=== PATIENT | female | born 1960 | race Caucasian/White ===

== ENCOUNTER → 2020-07-16 09:07 | Outpatient (CLI) | payer OTHER, SELFPAY ==
--- NOTE | 2020-07-16 09:19 | XR_ITS ---
PROCEDURE: XR MULTIPLE SPINE 6+V CLINICAL INDICATION: BACK PAIN COMPARISON: No exams were available for comparison FINDINGS: Thoracic spine: Mild dextroscoliosis. Multilevel degenerative disc disease. No acute fracture or dislocation. Lumbar spine: Normal alignment. No fracture or dislocation. There is 7 mm anterolisthesis of L4 on L5. The disc spaces are fairly well preserved. Mild facet arthritic change L 5 S1 There is mild sclerosis of the SI joints IMPRESSION: 1. No acute fracture. 2. Degenerative changes thoracic spine 3. 7 mm anterolisthesis of L4 on L5 4. Mild sclerosis of the SI joints Dictated by: Esa De La Vega MD 07/16/2020 14:05 Esa De La Vega MD in [place] 07/16/2020 14:05
== END ==
PROVIDERS: PCP Family Medicine; Visit Provider Nurse Practitioner Family
DX: M54.5 Low back pain (principal); M54.6 Pain in thoracic spine
CPT/HCPCS: 72084

== ENCOUNTER → 2021-02-21 07:29 | Outpatient (CLI) | payer BC, SELFPAY ==
[2021-02-21 08:29] LABS: Basophils # 0.1 K/mm3 (0-0.2); Basophils % 0.8 % (0.1-2.0); Eosinophils # 0.2 K/mm3 (0.0-0.4); Eosinophils % 1.6 % (0.1-12.0); Hematocrit 44.7 % (37.0-47.0); Hemoglobin 14.6 g/dL (12.2-16.2); Lymphocytes % 30.6 % (10-50); Mean Corpuscular HGB Conc 32.7 g/dL (31.8-35.4); Mean Corpuscular Volume 91.8 fl (81-99); Mean Platelet Volume 7.5 fl (7.4-10.4); Monocytes # 0.9 K/mm3 (0.1-1.0); Monocytes % 7.2 % (1.7-9.3); Neutrophils # 7.8 K/mm3 (1.8-7.8); Neutrophils % 59.9 % (37.0-80.0); Platelet Count 304 K/mm3 (142-424); Red Blood Count 4.87 M/mm3 (4.20-5.40); Red Cell Distribution Width 13.7 % (11.5-17.5)
[2021-02-21 10:36] LABS: Chloride 102 mmol/L (98-107); Potassium 4.2 mmoL/L (3.5-5.1); Sodium 139 mmol/L (136-145)
[2021-02-21 10:39] LABS: Alanine Aminotransferase 21 U/L (12-78); Albumin Level 4.4 g/dl (3.5-5.0); Albumin/Globulin Ratio 1.7 (1.1-1.8); Alkaline Phosphatase 86 U/L (38-126); Anion Gap 11.2 mEq/L (5-15); Aspartate Amino Transferase 28 U/L (14-36); Blood Urea Nitrogen 13 mg/dl (7-17); Calcium 9.6 mg/dl (8.4-10.2); Carbon Dioxide 30 mmol/L (22.0-30.0); Estimated Glomerular Filt Rate 63 ml/min (>60); GFR (African American) 77 ML/MIN (>60); Globulin 2.6 g/dL (1.3-3.2); Glucose 99 mg/dl (74-100)
== END ==
PROVIDERS: Visit Provider Nurse Practitioner Family
DX: L40.50 Arthropathic psoriasis, unspecified (principal); L40.9 Psoriasis, unspecified; Z79.899 Other long term (current) drug therapy
CPT/HCPCS: 36415; 80053; 85025

== ENCOUNTER → 2021-03-11 16:15 | Outpatient (CLI) | payer BC, SELFPAY ==
[2021-03-11 16:41] LABS: Basophils # 0.1 K/mm3 (0-0.2); Basophils % 1.1 % (0.1-2.0); Eosinophils # 0.3 K/mm3 (0.0-0.4); Hematocrit 42.8 % (37.0-47.0); Hemoglobin 14.1 g/dL (12.2-16.2); Lymphocytes # 3.9 K/mm3 (0.7-4.5); Lymphocytes % 34.5 % (10-50); Mean Corpuscular HGB Conc 33.1 g/dL (31.8-35.4); Mean Corpuscular Hemoglobin 29.9 pg (27.0-31.2); Mean Corpuscular Volume 90.3 fl (81-99); Mean Platelet Volume 7.7 fl (7.4-10.4); Monocytes # 0.6 K/mm3 (0.1-1.0); Monocytes % 5.1 % (1.7-9.3); Neutrophils # 6.3 K/mm3 (1.8-7.8); Neutrophils % 56.3 % (37.0-80.0); Platelet Count 359 K/mm3 (142-424); Red Blood Count 4.74 M/mm3 (4.20-5.40); Red Cell Distribution Width 14.1 % (11.5-17.5); White Blood Count 11.2 K/mm3 (4.8-10.8)
[2021-03-11 18:13] LABS: Chloride 99 mmol/L (98-107); Potassium 3.7 mmoL/L (3.5-5.1); Sodium 137 mmol/L (136-145)
[2021-03-11 18:16] LABS: Alanine Aminotransferase 17 U/L (12-78); Albumin Level 4.1 g/dl (3.5-5.0); Albumin/Globulin Ratio 1.5 (1.1-1.8); Alkaline Phosphatase 78 U/L (38-126); Anion Gap 12.7 mEq/L (5-15); Aspartate Amino Transferase 28 U/L (14-36); Bilirubin,Total 0.5 mg/dl (0.2-1.3); Calcium 9.2 mg/dl (8.4-10.2); Carbon Dioxide 29 mmol/L (22.0-30.0); Globulin 2.7 g/dL (1.3-3.2); Glucose 91 mg/dl (74-100); Total Protein,Serum 6.8 g/dl (6.3-8.2)
[2021-03-11 19:28] LABS: Blood Urea Nitrogen 16 mg/dl (7-17); Estimated Glomerular Filt Rate 63 ml/min (>60); GFR (African American) 77 ML/MIN (>60)
== END ==
PROVIDERS: Visit Provider Nurse Practitioner Family
DX: L40.50 Arthropathic psoriasis, unspecified (principal); L40.9 Psoriasis, unspecified; Z79.899 Other long term (current) drug therapy
CPT/HCPCS: 36415; 80053; 85025

== ENCOUNTER → 2021-04-04 08:43 | Outpatient (CLI) | payer BC, SELFPAY ==
[2021-04-04 09:49] LABS: Basophils # 0.1 K/mm3 (0-0.2); Eosinophils # 0.3 K/mm3 (0.0-0.4); Eosinophils % 3.2 % (0.1-12.0); Hematocrit 42.1 % (37.0-47.0); Hemoglobin 13.3 g/dL (12.2-16.2); Lymphocytes # 3.8 K/mm3 (0.7-4.5); Lymphocytes % 46.6 % (10-50); Mean Corpuscular HGB Conc 31.5 g/dL (31.8-35.4); Mean Corpuscular Hemoglobin 29.8 pg (27.0-31.2); Mean Corpuscular Volume 94.4 fl (81-99); Mean Platelet Volume 7.3 fl (7.4-10.4); Monocytes # 0.5 K/mm3 (0.1-1.0); Monocytes % 6.6 % (1.7-9.3); Neutrophils # 3.5 K/mm3 (1.8-7.8); Neutrophils % 42.6 % (37.0-80.0); Platelet Count 294 K/mm3 (142-424); Red Blood Count 4.46 M/mm3 (4.20-5.40); Red Cell Distribution Width 14.6 % (11.5-17.5); White Blood Count 8.1 K/mm3 (4.8-10.8)
[2021-04-04 13:12] LABS: Alanine Aminotransferase 18 U/L (12-78); Albumin Level 3.9 g/dl (3.5-5.0); Albumin/Globulin Ratio 1.6 (1.1-1.8); Alkaline Phosphatase 64 U/L (38-126); Anion Gap 9.9 mEq/L (5-15); Aspartate Amino Transferase 25 U/L (14-36); Bilirubin,Total 0.8 mg/dl (0.2-1.3); Blood Urea Nitrogen 12 mg/dl (7-17); Calcium 9.1 mg/dl (8.4-10.2); Carbon Dioxide 29 mmol/L (22.0-30.0); Chloride 105 mmol/L (98-107); Estimated Glomerular Filt Rate 73 ml/min (>60); GFR (African American) 88 ML/MIN (>60); Globulin 2.4 g/dL (1.3-3.2); Glucose 105 mg/dl (74-100); Potassium 3.9 mmoL/L (3.5-5.1); Sodium 140 mmol/L (136-145); Total Protein,Serum 6.3 g/dl (6.3-8.2)
== END ==
PROVIDERS: Visit Provider Nurse Practitioner Family
DX: L40.50 Arthropathic psoriasis, unspecified (principal); L40.9 Psoriasis, unspecified; Z79.899 Other long term (current) drug therapy
CPT/HCPCS: 80053; 85025

== ENCOUNTER → 2021-06-17 17:30 | Outpatient (CLI) | payer BC, SELFPAY ==
[2021-06-17 17:59] LABS: Basophils # 0.1 K/mm3 (0-0.2); Eosinophils # 0.2 K/mm3 (0.0-0.4); Eosinophils % 1.5 % (0.1-12.0); Hematocrit 45.1 % (37.0-47.0); Hemoglobin 15.2 g/dL (12.2-16.2); Lymphocytes # 3.8 K/mm3 (0.7-4.5); Mean Corpuscular HGB Conc 33.8 g/dL (31.8-35.4); Mean Corpuscular Hemoglobin 31.2 pg (27.0-31.2); Mean Corpuscular Volume 92.4 fl (81-99); Mean Platelet Volume 7.8 fl (7.4-10.4); Monocytes # 0.4 K/mm3 (0.1-1.0); Monocytes % 3.8 % (1.7-9.3); Neutrophils # 5.3 K/mm3 (1.8-7.8); Neutrophils % 54.7 % (37.0-80.0); Platelet Count 336 K/mm3 (142-424); Red Blood Count 4.88 M/mm3 (4.20-5.40); Red Cell Distribution Width 14.7 % (11.5-17.5); White Blood Count 9.7 K/mm3 (4.8-10.8)
[2021-06-17 18:45] LABS: Erythrocyte Sedimentation Rate 23 mm/hr (0-30)
[2021-06-17 19:15] LABS: Chloride 104 mmol/L (98-107)
[2021-06-17 19:16] LABS: Potassium 3.7 mmoL/L (3.5-5.1); Sodium 141 mmol/L (136-145)
[2021-06-17 19:18] LABS: Alanine Aminotransferase 21 U/L (12-78); Alkaline Phosphatase 82 U/L (38-126); Aspartate Amino Transferase 32 U/L (14-36); Bilirubin,Total 0.7 mg/dl (0.2-1.3); Blood Urea Nitrogen 14 mg/dl (7-17); Estimated Glomerular Filt Rate 72 ml/min (>60); GFR (African American) 88 ML/MIN (>60)
[2021-06-17 19:19] LABS: Albumin Level 4.3 g/dl (3.5-5.0); Albumin/Globulin Ratio 1.5 (1.1-1.8); Anion Gap 9.7 mEq/L (5-15); Calcium 9.3 mg/dl (8.4-10.2); Carbon Dioxide 31 mmol/L (22.0-30.0); Globulin 2.8 g/dL (1.3-3.2); Glucose 114 mg/dl (74-100); Total Protein,Serum 7.1 g/dl (6.3-8.2)
[2021-06-17 19:25] LABS: C-Reactive Protein 1.5 mg/L (0-4)
== END ==
PROVIDERS: Visit Provider Internal Medicine Rheumatology
DX: K50.90 Crohn's disease, unspecified, without complications (principal); L40.50 Arthropathic psoriasis, unspecified; L40.9 Psoriasis, unspecified; M47.816 Spondylosis without myelopathy or radiculopathy, lumbar region; R53.83 Other fatigue
CPT/HCPCS: 36415; 80053; 85025; 85651; 86140

== ENCOUNTER → 2021-07-15 11:31 | Outpatient (CLI) | payer BC, SELFPAY ==
[2021-07-15 12:14] LABS: Basophils # 0.1 K/mm3 (0-0.2); Basophils % 0.8 % (0.1-2.0); Eosinophils # 0.2 K/mm3 (0.0-0.4); Hematocrit 43.4 % (37.0-47.0); Hemoglobin 14.8 g/dL (12.2-16.2); Lymphocytes # 3.5 K/mm3 (0.7-4.5); Mean Corpuscular HGB Conc 34.1 g/dL (31.8-35.4); Mean Corpuscular Hemoglobin 32.3 pg (27.0-31.2); Mean Corpuscular Volume 94.7 fl (81-99); Mean Platelet Volume 8.3 fl (7.4-10.4); Monocytes # 0.4 K/mm3 (0.1-1.0); Monocytes % 4.3 % (1.7-9.3); Neutrophils # 4.2 K/mm3 (1.8-7.8); Neutrophils % 50.8 % (37.0-80.0); Platelet Count 328 K/mm3 (142-424); Red Blood Count 4.59 M/mm3 (4.20-5.40); Red Cell Distribution Width 14.4 % (11.5-17.5); White Blood Count 8.3 K/mm3 (4.8-10.8)
[2021-07-15 12:32] LABS: Chloride 104 mmol/L (98-107); Potassium 4.1 mmoL/L (3.5-5.1); Sodium 140 mmol/L (136-145)
[2021-07-15 12:35] LABS: Alanine Aminotransferase 33 U/L (12-78); Albumin Level 3.9 g/dl (3.5-5.0); Albumin/Globulin Ratio 1.5 (1.1-1.8); Alkaline Phosphatase 81 U/L (38-126); Anion Gap 11.1 mEq/L (5-15); Aspartate Amino Transferase 36 U/L (14-36); Bilirubin,Total 0.8 mg/dl (0.2-1.3); Blood Urea Nitrogen 15 mg/dl (7-17); Calcium 9.2 mg/dl (8.4-10.2); Carbon Dioxide 29 mmol/L (22.0-30.0); Estimated Glomerular Filt Rate 72 ml/min (>60); GFR (African American) 88 ML/MIN (>60); Globulin 2.6 g/dL (1.3-3.2); Glucose 115 mg/dl (74-100); Total Protein,Serum 6.5 g/dl (6.3-8.2)
[2021-07-15 12:40] LABS: C-Reactive Protein 4.3 mg/L (0-4)
[2021-07-15 12:44] LABS: Erythrocyte Sedimentation Rate 17 mm/hr (0-30)
== END ==
PROVIDERS: Visit Provider Internal Medicine Rheumatology
DX: K50.90 Crohn's disease, unspecified, without complications (principal); L40.50 Arthropathic psoriasis, unspecified; L40.9 Psoriasis, unspecified; M47.816 Spondylosis without myelopathy or radiculopathy, lumbar region; R53.83 Other fatigue
CPT/HCPCS: 36415; 80053; 85025; 85651; 86140

== ENCOUNTER → 2021-11-16 19:37 | Outpatient (CLI) | payer BC, SELFPAY | PROVIDERS: PCP Family Medicine; Visit Provider Nurse Practitioner | DX: Z20.822 Contact with and (suspected) exposure to COVID-19 (principal) | CPT/HCPCS: C9803; U0003; U0005 ==

== ENCOUNTER → 2021-12-15 07:55 | Outpatient (CLI) | payer BC, SELFPAY ==
[2021-12-15 08:44] LABS: Basophils # 0.1 K/mm3 (0-0.2); Basophils % 1.5 % (0.1-2.0); Eosinophils # 0.2 K/mm3 (0.0-0.4); Eosinophils % 2.4 % (0.1-12.0); Hematocrit 46.7 % (37.0-47.0); Lymphocytes % 37.8 % (10-50); Mean Corpuscular Volume 99.9 fl (81-99); Mean Platelet Volume 7.7 fl (7.4-10.4); Monocytes # 0.5 K/mm3 (0.1-1.0); Monocytes % 6.8 % (1.7-9.3); Neutrophils # 4.1 K/mm3 (1.8-7.8); Neutrophils % 51.5 % (37.0-80.0); Platelet Count 373 K/mm3 (142-424); Red Blood Count 4.68 M/mm3 (4.20-5.40); Red Cell Distribution Width 14.9 % (11.5-17.5); White Blood Count 7.9 K/mm3 (4.8-10.8)
[2021-12-15 09:30] LABS: Erythrocyte Sedimentation Rate 67 mm/hr (0-30)
[2021-12-15 09:54] LABS: Alanine Aminotransferase 13 U/L (12-78); Albumin Level 4.1 g/dl (3.5-5.0); Albumin/Globulin Ratio 1.6 (1.1-1.8); Alkaline Phosphatase 81 U/L (38-126); Anion Gap 11.3 mEq/L (5-15); Aspartate Amino Transferase 24 U/L (14-36); Bilirubin,Total 0.8 mg/dl (0.2-1.3); Blood Urea Nitrogen 9 mg/dl (7-17); Calcium 9.1 mg/dl (8.4-10.2); Carbon Dioxide 33 mmol/L (22.0-30.0); Chloride 102 mmol/L (98-107); Estimated Glomerular Filt Rate 72 ml/min (>60); GFR (African American) 88 ML/MIN (>60); Globulin 2.5 g/dL (1.3-3.2); Glucose 95 mg/dl (74-100); Potassium 4.3 mmoL/L (3.5-5.1); Sodium 142 mmol/L (136-145); Total Protein,Serum 6.6 g/dl (6.3-8.2)
[2021-12-15 10:38] LABS: C-Reactive Protein 19.3 mg/L (0-4)
== END ==
PROVIDERS: PCP Family Medicine; Visit Provider Internal Medicine Rheumatology
DX: K50.90 Crohn's disease, unspecified, without complications (principal); L40.50 Arthropathic psoriasis, unspecified; L40.9 Psoriasis, unspecified; M25.50 Pain in unspecified joint; M47.814 Spondylosis without myelopathy or radiculopathy, thoracic region
CPT/HCPCS: 36415; 80053; 85025; 85651; 86140

== ENCOUNTER → 2022-02-16 16:01 | Outpatient (POV) | payer BC, SELFPAY | PROVIDERS: Visit Provider Dermatology | DX: Z00.00 Encounter for general adult medical examination without abnormal findings (principal) ==

== ENCOUNTER → 2022-04-14 09:18 | Outpatient (CLI) | payer BC, SELFPAY ==
[2022-04-14 09:52] LABS: Basophils # 0.2 K/mm3 (0-0.2); Basophils % 2.3 % (0.1-2.0); Eosinophils # 0.2 K/mm3 (0.0-0.4); Eosinophils % 2.9 % (0.1-12.0); Hematocrit 42.8 % (37.0-47.0); Hemoglobin 14.9 g/dL (12.2-16.2); Lymphocytes # 2.9 K/mm3 (0.7-4.5); Lymphocytes % 41.8 % (10-50); Mean Corpuscular HGB Conc 34.8 g/dL (31.8-35.4); Mean Corpuscular Hemoglobin 33.7 pg (27.0-31.2); Mean Corpuscular Volume 96.9 fl (81-99); Mean Platelet Volume 8.5 fl (7.4-10.4); Monocytes # 0.5 K/mm3 (0.1-1.0); Monocytes % 7.3 % (1.7-9.3); Neutrophils # 3.2 K/mm3 (1.8-7.8); Neutrophils % 45.7 % (37.0-80.0); Platelet Count 307 K/mm3 (142-424); Red Blood Count 4.42 M/mm3 (4.20-5.40); Red Cell Distribution Width 14.4 % (11.5-17.5)
[2022-04-14 10:28] LABS: Erythrocyte Sedimentation Rate 16 mm/hr (0-30)
[2022-04-14 10:37] LABS: Alanine Aminotransferase 21 U/L (12-78); Albumin Level 3.6 g/dl (3.5-5.0); Albumin/Globulin Ratio 1.4 (1.1-1.8); Alkaline Phosphatase 86 U/L (38-126); Aspartate Amino Transferase 26 U/L (14-36); Bilirubin,Total 0.2 mg/dl (0.2-1.3); Blood Urea Nitrogen 13 mg/dl (7-17); Carbon Dioxide 29 mmol/L (22.0-30.0); Chloride 105 mmol/L (98-107); Estimated Glomerular Filt Rate 72 ml/min (>60); GFR (African American) 87 ML/MIN (>60); Globulin 2.5 g/dL (1.3-3.2); Glucose 89 mg/dl (74-100); Sodium 140 mmol/L (136-145); Total Protein,Serum 6.1 g/dl (6.3-8.2)
[2022-04-14 10:53] LABS: 25-OH Vitamin D, Total 43.1 ng/mL (30-100)
[2022-04-14 12:07] LABS: Vitamin B12 454 pg/mL (239-931)
[2022-04-14 13:33] LABS: Iron 61 ug/dL (37-170)
[2022-04-14 13:43] LABS: Total Iron Binding Capacity 284 ug/dL (265-497)
[2022-04-14 14:10] LABS: Ferritin 110 ng/ml (11.1-264)
[2022-04-17 12:15] LABS: QuantiFERON-TB Gold Plus Negative (Negative)
== END ==
PROVIDERS: Nurse Practitioner Family; PCP Family Medicine; Visit Provider Internal Medicine
DX: K50.90 Crohn's disease, unspecified, without complications (principal); L40.50 Arthropathic psoriasis, unspecified; L40.9 Psoriasis, unspecified
CPT/HCPCS: 36415; 80053; 82306; 82607; 82728; 83540; 83550; 85025; 85651; 86140; 86480

== ENCOUNTER → 2022-06-23 08:12 | Outpatient (CLI) | payer BC, SELFPAY ==
--- NOTE | 2022-06-23 08:22 | XR_ITS ---
FINAL REPORT TECHNIQUE: Bone densitometry calculations of the lumbar spine and left hip were obtained. CLINICAL HISTORY: . post menopausal FINDINGS: DEXA BONE DENSITY AXIAL SKELETON Using L1-4, the bone mineral density of the spine is 0.798 g/cm2, corresponding to T-score of -2.3. Using the left hip, the bone mineral density of the femoral neck is 0.498 g/cm2, corresponding to a T-score of -3.2. NOTE: T-score: Standard deviation compared with peak bone mass of young adult mean. *Following the recommendations of the International Society of Bone Densitometry, classification of hip BMD is based on the lower of two T-scores; total hip or femoral neck. IMPRESSION: Osteoporosis: Lowest T-score is at or below -2.5. This patient's T-score meets the World Health Organization criteria for osteoporosis. Reviewed, Interpreted and Dictated by Roberto Moe III, MD Transcribed by Marilu Murphy Authenticated and . [facility]
--- NOTE | 2022-06-23 08:22 | MM_ITS ---
PROCEDURE INFORMATION: Exam: MG Bilateral Screening 3D Mammography Exam date and time: 06/23/2022 8:28 AM Age: 62 years old Clinical indication: Screening mammogram TECHNIQUE: Imaging protocol: Bilateral Screening tomosynthesis and 2D mammography including computer-aided detection (CAD) when performed. COMPARISON: No relevant prior studies available. FINDINGS: MAMMOGRAPHY: Breast composition: There are scattered areas of fibroglandular density. Mass: None. Architectural distortion: No new or suspicious architectural distortion. Calcifications: benign-appearing calcifications are present. No new or suspicious cluster of microcalcifications have developed. Asymmetric density: No new or suspicious asymmetric density is present Skin thickening: None. Axillary adenopathy: None. IMPRESSION: No mammographic evidence of malignancy. Recommend annual screening mammography unless otherwise clinically indicated. ASSESSMENT: BI-RADS category 2: Benign
== END ==
PROVIDERS: PCP Nurse Practitioner Family; Visit Provider Nurse Practitioner Family
DX: Z12.31 Encounter for screening mammogram for malignant neoplasm of breast (principal); Z78.0 Asymptomatic menopausal state; M81.0 Age-related osteoporosis without current pathological fracture
CPT/HCPCS: 77063; 77067; 77080

== ENCOUNTER → 2022-08-20 09:03 | Outpatient (CLI) | payer BC, SELFPAY ==
[2022-08-20 09:46] LABS: Basophils # 0.1 K/mm3 (0-0.2); Basophils % 1.5 % (0.1-2.0); Eosinophils # 0.3 K/mm3 (0.0-0.4); Eosinophils % 3.1 % (0.1-12.0); Hematocrit 44.2 % (37.0-47.0); Lymphocytes # 2.7 K/mm3 (0.7-4.5); Mean Corpuscular HGB Conc 33.9 g/dL (31.8-35.4); Mean Corpuscular Hemoglobin 33.3 pg (27.0-31.2); Mean Platelet Volume 8.4 fl (7.4-10.4); Monocytes # 0.7 K/mm3 (0.1-1.0); Monocytes % 8.4 % (1.7-9.3); Neutrophils # 4.3 K/mm3 (1.8-7.8); Neutrophils % 52.9 % (37.0-80.0); Platelet Count 296 K/mm3 (142-424); Red Blood Count 4.51 M/mm3 (4.20-5.40); Red Cell Distribution Width 14.6 % (11.5-17.5)
[2022-08-20 10:06] LABS: Erythrocyte Sedimentation Rate 14 mm/hr (0-30)
[2022-08-20 10:10] LABS: Chol/HDL Ratio 3.8 (1-3.5); Cholesterol 160 mg/dl (140-200); HDL Cholesterol 42 mg/dl (40-60); Triglycerides 92 mg/dl (30-150); VLDL Cholesterol 18 mg/dL (0-40)
[2022-08-20 10:10] LABS: Alanine Aminotransferase 22 U/L (12-78); Albumin Level 3.8 g/dl (3.5-5.0); Albumin/Globulin Ratio 1.5 (1.1-1.8); Alkaline Phosphatase 97 U/L (38-126); Anion Gap 9.2 mEq/L (5-15); Aspartate Amino Transferase 29 U/L (14-36); Bilirubin,Total 0.8 mg/dl (0.2-1.3); Blood Urea Nitrogen 13 mg/dl (7-17); Calcium 8.8 mg/dl (8.4-10.2); Carbon Dioxide 29 mmol/L (22.0-30.0); Chloride 104 mmol/L (98-107); Estimated Glomerular Filt Rate 72 ml/min (>60); GFR (African American) 87 ML/MIN (>60); Globulin 2.5 g/dL (1.3-3.2); Glucose 97 mg/dl (74-100); Potassium 4.2 mmoL/L (3.5-5.1); Sodium 138 mmol/L (136-145); Total Protein,Serum 6.3 g/dl (6.3-8.2)
[2022-08-20 10:16] LABS: C-Reactive Protein 4.2 mg/L (0-4)
[2022-08-20 10:20] LABS: Direct LDL Cholesterol 96.48 mg/dL (100-129)
== END ==
PROVIDERS: PCP Nurse Practitioner Family; Referring Provider Internal Medicine; Visit Provider Internal Medicine Rheumatology
DX: K50.90 Crohn's disease, unspecified, without complications (principal); L40.50 Arthropathic psoriasis, unspecified; L40.9 Psoriasis, unspecified; M25.50 Pain in unspecified joint; R53.83 Other fatigue
CPT/HCPCS: 36415; 80053; 80061; 85025; 85651; 86140

== ENCOUNTER → 2022-11-22 10:18 | Outpatient (CLI) | payer BC, SELFPAY ==
[2022-11-22 11:39] LABS: Basophils # 0.1 K/mm3 (0-0.2); Basophils % 0.9 % (0.1-2.0); Eosinophils # 0.2 K/mm3 (0.0-0.4); Eosinophils % 2.5 % (0.1-12.0); Hematocrit 47.2 % (37.0-47.0); Hemoglobin 15.4 g/dL (12.2-16.2); Lymphocytes # 2.5 K/mm3 (0.7-4.5); Lymphocytes % 33.5 % (10-50); Mean Corpuscular HGB Conc 32.6 g/dL (31.8-35.4); Mean Corpuscular Hemoglobin 31.6 pg (27.0-31.2); Mean Platelet Volume 8.4 fl (7.4-10.4); Monocytes # 0.4 K/mm3 (0.1-1.0); Monocytes % 5.2 % (1.7-9.3); Neutrophils # 4.3 K/mm3 (1.8-7.8); Neutrophils % 57.9 % (37.0-80.0); Platelet Count 374 K/mm3 (142-424); Red Blood Count 4.87 M/mm3 (4.20-5.40); Red Cell Distribution Width 13.6 % (11.5-17.5); White Blood Count 7.4 K/mm3 (4.8-10.8)
[2022-11-22 12:25] LABS: Alanine Aminotransferase 42 U/L (12-78); Albumin Level 4.2 g/dl (3.5-5.0); Albumin/Globulin Ratio 1.5 (1.1-1.8); Alkaline Phosphatase 60 U/L (38-126); Anion Gap 14.1 mEq/L (5-15); Aspartate Amino Transferase 43 U/L (14-36); Bilirubin,Total 0.8 mg/dl (0.2-1.3); Blood Urea Nitrogen 21 mg/dl (7-17); Calcium 9.1 mg/dl (8.4-10.2); Carbon Dioxide 27 mmol/L (22.0-30.0); Chloride 104 mmol/L (98-107); Estimated Glomerular Filt Rate 63 ml/min (>60); GFR (African American) 76 ML/MIN (>60); Globulin 2.8 g/dL (1.3-3.2); Glucose 96 mg/dl (74-100); Potassium 4.1 mmoL/L (3.5-5.1); Sodium 141 mmol/L (136-145)
[2022-11-22 12:30] LABS: C-Reactive Protein 2.6 mg/L (0-4)
[2022-11-22 13:05] LABS: Thyroid Stimulating Hormone 0.68 uIU/mL (0.465-4.68)
[2022-11-22 13:40] LABS: Erythrocyte Sedimentation Rate 11 mm/hr (0-30)
== END ==
PROVIDERS: PCP Nurse Practitioner Family; Visit Provider Internal Medicine Rheumatology
DX: I10 Essential (primary) hypertension (principal); R60.9 Edema, unspecified; K50.90 Crohn's disease, unspecified, without complications; L40.50 Arthropathic psoriasis, unspecified; L40.9 Psoriasis, unspecified; M47.816 Spondylosis without myelopathy or radiculopathy, lumbar region; R53.83 Other fatigue
CPT/HCPCS: 36415; 80053; 84443; 85025; 85651; 86140

== ENCOUNTER → 2023-03-08 08:54 | Outpatient (POV) | payer BC, SELFPAY | PROVIDERS: Visit Provider Dermatology | DX: Z00.00 Encounter for general adult medical examination without abnormal findings (principal) ==

== ENCOUNTER → 2023-03-09 11:14 | Outpatient (CLI) | payer BC, SELFPAY ==
[2023-03-09 12:05] LABS: Basophils # 0.1 K/mm3 (0-0.2); Basophils % 0.7 % (0.1-2.0); Eosinophils # 0.3 K/mm3 (0.0-0.4); Eosinophils % 2.8 % (0.1-12.0); Hematocrit 42.7 % (37.0-47.0); Hemoglobin 14.4 g/dL (12.2-16.2); Lymphocytes # 3.2 K/mm3 (0.7-4.5); Lymphocytes % 34.5 % (10-50); Mean Corpuscular HGB Conc 33.7 g/dL (31.8-35.4); Mean Corpuscular Hemoglobin 32.2 pg (27.0-31.2); Mean Corpuscular Volume 95.6 fl (81-99); Monocytes # 0.5 K/mm3 (0.1-1.0); Monocytes % 5.5 % (1.7-9.3); Neutrophils # 5.2 K/mm3 (1.8-7.8); Neutrophils % 56.4 % (37.0-80.0); Platelet Count 320 K/mm3 (142-424); Red Blood Count 4.46 M/mm3 (4.20-5.40); Red Cell Distribution Width 14.8 % (11.5-17.5); White Blood Count 9.2 K/mm3 (4.8-10.8)
[2023-03-09 12:40] LABS: Chloride 101 mmol/L (98-107); Potassium 3.7 mmoL/L (3.5-5.1); Sodium 139 mmol/L (136-145)
[2023-03-09 12:42] LABS: Alanine Aminotransferase 25 U/L (12-78); Aspartate Amino Transferase 30 U/L (14-36); Blood Urea Nitrogen 15 mg/dl (7-17); Estimated Glomerular Filt Rate 63 ml/min (>60); GFR (African American) 76 ML/MIN (>60)
[2023-03-09 12:43] LABS: Albumin Level 3.9 g/dl (3.5-5.0); Albumin/Globulin Ratio 1.6 (1.1-1.8); Alkaline Phosphatase 59 U/L (38-126); Anion Gap 9.7 mEq/L (5-15); Bilirubin,Total 0.7 mg/dl (0.2-1.3); Calcium 8.7 mg/dl (8.4-10.2); Carbon Dioxide 32 mmol/L (22.0-30.0); Globulin 2.5 g/dL (1.3-3.2); Glucose 103 mg/dl (74-100); Total Protein,Serum 6.4 g/dl (6.3-8.2)
[2023-03-09 12:49] LABS: C-Reactive Protein 3.8 mg/L (0-4)
[2023-03-09 13:46] LABS: Erythrocyte Sedimentation Rate 23 mm/hr (0-30)
== END ==
PROVIDERS: PCP Nurse Practitioner Family; Visit Provider Nurse Practitioner Family
DX: K50.90 Crohn's disease, unspecified, without complications (principal); L40.50 Arthropathic psoriasis, unspecified; Z92.29 Personal history of other drug therapy
CPT/HCPCS: 36415; 80053; 85025; 85651; 86140

== ENCOUNTER → 2023-06-14 10:39 | Outpatient (CLI) | payer BC, SELFPAY ==
--- NOTE | 2023-06-14 10:46 | MM_ITS ---
PROCEDURE INFORMATION: Exam: MG Bilateral Screening 3D Mammography Exam date and time: 06/14/2023 10:47 AM Age: 63 years old Clinical indication: Screening. No family history of breast cancer. Oval TECHNIQUE: Imaging protocol: Bilateral Screening tomosynthesis and 2D mammography including computer-aided detection (CAD) when performed. COMPARISON: MG MM DIG SCREENING MAMM BI W/CAD 06/23/2022 8:28 AM FINDINGS: MAMMOGRAPHY: Breast composition: There are scattered areas of fibroglandular density. Mass: None. Architectural distortion: None. Calcifications: No suspicious calcifications. Asymmetric density: None. Skin thickening: None. Axillary adenopathy: None. IMPRESSION: No mammographic evidence of malignancy. Annual screening is recommended unless otherwise clinically indicated. ASSESSMENT: BI-RADS Category 1: Negative
== END ==
PROVIDERS: PCP Nurse Practitioner Family; Visit Provider Nurse Practitioner Family
DX: Z12.31 Encounter for screening mammogram for malignant neoplasm of breast (principal)
CPT/HCPCS: 77063; 77067

== ENCOUNTER → 2023-06-17 09:13 | Outpatient (CLI) | payer BC, SELFPAY ==
--- NOTE | 2023-06-17 09:21 | XR_ITS ---
FINAL REPORT TECHNIQUE: Bone densitometry calculations of the lumbar spine and left hip were obtained. CLINICAL HISTORY: . post menopausal COMPARISON: 06/23/2022 FINDINGS: Using L1-4, the bone mineral density of the spine is 0.80 g/cm2, corresponding to T-score of -2.2. Using the left hip, the bone mineral density of the femoral neck is 0.68 g/cm2, corresponding to a T-score of -2.2. NOTE: T-score: Standard deviation compared with peak bone mass of young adult mean. *Following the recommendations of the International Society of Bone densitometry, classification of hip BMD is based on the lower of two T-scores; total hip or femoral neck. IMPRESSION: Diminished bone mineral density of the lumbar spine and left hip consistent with osteopenia. Reviewed, Interpreted and Dictated by Tory Mcgregor MD Transcribed by Andreina Melara Authenticated and [facility]
== END ==
PROVIDERS: PCP Nurse Practitioner Family; Visit Provider Nurse Practitioner Family
DX: Z78.0 Asymptomatic menopausal state (principal)
CPT/HCPCS: 77080

== ENCOUNTER → 2023-06-24 10:27 | Outpatient (CLI) | payer BC, SELFPAY ==
[2023-06-24 11:02] LABS: Basophils # 0.1 K/mm3 (0-0.2); Basophils % 0.8 % (0.1-2.0); Eosinophils # 0.3 K/mm3 (0.0-0.4); Eosinophils % 3.7 % (0.1-12.0); Hematocrit 41.6 % (37.0-47.0); Hemoglobin 13.8 g/dL (12.2-16.2); Lymphocytes # 2.1 K/mm3 (0.7-4.5); Lymphocytes % 28.2 % (10-50); Mean Corpuscular HGB Conc 33.3 g/dL (31.8-35.4); Mean Corpuscular Hemoglobin 31.2 pg (27.0-31.2); Mean Corpuscular Volume 93.8 fl (81-99); Mean Platelet Volume 8.4 fl (7.4-10.4); Monocytes # 0.7 K/mm3 (0.1-1.0); Monocytes % 9.7 % (1.7-9.3); Neutrophils # 4.3 K/mm3 (1.8-7.8); Neutrophils % 57.5 % (37.0-80.0); Platelet Count 325 K/mm3 (142-424); Red Blood Count 4.43 M/mm3 (4.20-5.40); Red Cell Distribution Width 13.7 % (11.5-17.5); White Blood Count 7.5 K/mm3 (4.8-10.8)
[2023-06-24 11:08] LABS: Chloride 102 mmol/L (98-107)
[2023-06-24 11:09] LABS: Potassium 3.6 mmoL/L (3.5-5.1); Sodium 140 mmol/L (136-145)
[2023-06-24 11:11] LABS: Alanine Aminotransferase 33 U/L (12-78); Aspartate Amino Transferase 38 U/L (14-36); Blood Urea Nitrogen 16 mg/dl (7-17); Estimated Glomerular Filt Rate 63 ml/min (>60); GFR (African American) 76 ML/MIN (>60)
[2023-06-24 11:12] LABS: Albumin Level 4.2 g/dl (3.5-5.0); Albumin/Globulin Ratio 1.4 (1.1-1.8); Alkaline Phosphatase 59 U/L (38-126); Anion Gap 11.6 mEq/L (5-15); Bilirubin,Total 0.5 mg/dl (0.2-1.3); Calcium 9.7 mg/dl (8.4-10.2); Carbon Dioxide 30 mmol/L (22.0-30.0); Globulin 3.1 g/dL (1.3-3.2); Glucose 110 mg/dl (74-100); Total Protein,Serum 7.3 g/dl (6.3-8.2)
[2023-06-24 11:20] LABS: C-Reactive Protein 8.3 mg/L (0-4)
[2023-06-24 11:26] LABS: Erythrocyte Sedimentation Rate 21 mm/hr (0-30)
== END ==
PROVIDERS: PCP Nurse Practitioner Family; Visit Provider Internal Medicine Rheumatology
DX: K50.90 Crohn's disease, unspecified, without complications (principal); L40.50 Arthropathic psoriasis, unspecified; L40.9 Psoriasis, unspecified; M47.816 Spondylosis without myelopathy or radiculopathy, lumbar region; R53.83 Other fatigue
CPT/HCPCS: 36415; 80053; 85025; 85651; 86140

== ENCOUNTER 2024-02-03 09:41 | Outpatient (CLI) | payer BC, SELFPAY ==
[2024-02-03 10:02] LABS: Basophils # 0.1 K/mm3 (0-0.2); Basophils % 0.9 % (0.1-2.0); Eosinophils # 0.3 K/mm3 (0.0-0.4); Eosinophils % 3.4 % (0.1-12.0); Hematocrit 42.9 % (37.0-47.0); Hemoglobin 14.1 g/dL (12.2-16.2); Lymphocytes # 2.8 K/mm3 (0.7-4.5); Lymphocytes % 37.7 % (10-50); Mean Corpuscular HGB Conc 32.8 g/dL (31.8-35.4); Mean Corpuscular Hemoglobin 32.5 pg (27.0-31.2); Mean Corpuscular Volume 99.2 fl (81-99); Mean Platelet Volume 8.5 fl (7.4-10.4); Monocytes # 0.5 K/mm3 (0.1-1.0); Monocytes % 6.2 % (1.7-9.3); Neutrophils # 3.8 K/mm3 (1.8-7.8); Neutrophils % 51.7 % (37.0-80.0); Platelet Count 290 K/mm3 (142-424); Red Blood Count 4.32 M/mm3 (4.20-5.40); Red Cell Distribution Width 14.1 % (11.5-17.5); White Blood Count 7.4 K/mm3 (4.8-10.8)
[2024-02-03 10:26] LABS: Erythrocyte Sedimentation Rate 16 mm/hr (0-30)
[2024-02-03 10:54] LABS: Alanine Aminotransferase 18 U/L (12-78); Albumin Level 3.9 g/dl (3.5-5.0); Albumin/Globulin Ratio 1.6 (1.1-1.8); Alkaline Phosphatase 58 U/L (38-126); Anion Gap 10.4 mEq/L (5-15); Aspartate Amino Transferase 27 U/L (14-36); Bilirubin,Total 0.8 mg/dl (0.2-1.3); Blood Urea Nitrogen 16 mg/dl (7-17); Calcium 9.2 mg/dl (8.4-10.2); Carbon Dioxide 27 mmol/L (22.0-30.0); Chloride 106 mmol/L (98-107); Estimated Glomerular Filt Rate 72 ml/min (>60); GFR (African American) 87 ML/MIN (>60); Globulin 2.5 g/dL (1.3-3.2); Glucose 89 mg/dl (74-100); Potassium 3.4 mmoL/L (3.5-5.1); Sodium 140 mmol/L (136-145); Total Protein,Serum 6.4 g/dl (6.3-8.2)
[2024-02-03 10:55] LABS: 25-OH Vitamin D, Total 96.7 ng/mL (30-100); Chol/HDL Ratio 4.3 (1-3.5); Cholesterol 149 mg/dl (140-200); HDL Cholesterol 35 mg/dl (40-60); Triglycerides 79 mg/dl (30-150); VLDL Cholesterol 16 mg/dL (0-40)
[2024-02-03 11:01] LABS: C-Reactive Protein 3.3 mg/L (0-4)
[2024-02-03 11:06] LABS: Direct LDL Cholesterol 80.12 mg/dL (100-129)
== END 2024-02-03 23:59 ==
LOC: LAB 09:43
PROVIDERS: PCP Nurse Practitioner Family; Visit Provider Nurse Practitioner Family
DX: I10 Essential (primary) hypertension (principal); M81.0 Age-related osteoporosis without current pathological fracture; K50.90 Crohn's disease, unspecified, without complications; L40.50 Arthropathic psoriasis, unspecified; Z92.29 Personal history of other drug therapy
CPT/HCPCS: 36415; 80053; 80061; 82306; 85025; 85651; 86140

== ENCOUNTER 2024-06-04 09:05 | Outpatient (CLI) | payer MEDICARE, BC, SELFPAY ==
[2024-06-04 09:30] LABS: Basophils # 0.1 K/mm3 (0-0.2); Basophils % 0.9 % (0.1-2.0); Eosinophils # 0.2 K/mm3 (0.0-0.4); Eosinophils % 2.7 % (0.1-12.0); Hematocrit 41.7 % (37.0-47.0); Hemoglobin 13.7 g/dL (12.2-16.2); Lymphocytes # 2.3 K/mm3 (0.7-4.5); Lymphocytes % 33.5 % (10-50); Mean Corpuscular HGB Conc 32.8 g/dL (31.8-35.4); Mean Corpuscular Volume 97.5 fl (81-99); Mean Platelet Volume 8.1 fl (7.4-10.4); Monocytes # 0.4 K/mm3 (0.1-1.0); Monocytes % 6.3 % (1.7-9.3); Neutrophils # 3.9 K/mm3 (1.8-7.8); Neutrophils % 56.7 % (37.0-80.0); Platelet Count 228 K/mm3 (142-424); Red Blood Count 4.27 M/mm3 (4.20-5.40); Red Cell Distribution Width 14.5 % (11.5-17.5); White Blood Count 6.8 K/mm3 (4.8-10.8)
[2024-06-04 09:50] LABS: Alanine Aminotransferase 14 U/L (12-78); Albumin Level 3.8 g/dl (3.5-5.0); Albumin/Globulin Ratio 1.5 (1.1-1.8); Alkaline Phosphatase 51 U/L (38-126); Anion Gap 6.8 mEq/L (5-15); Aspartate Amino Transferase 22 U/L (14-36); Bilirubin,Total 1.1 mg/dl (0.2-1.3); Blood Urea Nitrogen 16 mg/dl (7-17); Calcium 9.1 mg/dl (8.4-10.2); Carbon Dioxide 31 mmol/L (22.0-30.0); Chloride 106 mmol/L (98-107); Estimated Glomerular Filt Rate 63 ml/min (>60); GFR (African American) 76 ML/MIN (>60); Globulin 2.6 g/dL (1.3-3.2); Glucose 86 mg/dl (74-100); Potassium 3.8 mmoL/L (3.5-5.1); Sodium 140 mmol/L (136-145); Total Protein,Serum 6.4 g/dl (6.3-8.2)
[2024-06-04 09:56] LABS: C-Reactive Protein 2.2 mg/L (0-4)
[2024-06-04 10:01] LABS: Erythrocyte Sedimentation Rate 15 mm/hr (0-30)
[2024-06-06 21:46] LABS: QuantiFERON-TB Gold Plus Negative (Negative)
== END 2024-06-04 23:59 | disposition home or self-care (01) ==
LOC: LAB 09:08
PROVIDERS: PCP Nurse Practitioner Family; Visit Provider Nurse Practitioner Family
DX: K50.90 Crohn's disease, unspecified, without complications (principal); L40.50 Arthropathic psoriasis, unspecified; R53.83 Other fatigue; Z92.29 Personal history of other drug therapy
CPT/HCPCS: 36415; 80053; 85025; 85651; 86140; 86480

== ENCOUNTER 2024-07-03 08:41 | Outpatient (CLI) | payer MEDICARE, BC, SELFPAY ==
--- NOTE | 2024-07-03 08:46 | MM_ITS ---
PROCEDURE INFORMATION: Exam: MG Bilateral Screening 3D Mammography Exam date and time: 07/03/2024 8:56 AM Age: 64 years old Clinical indication: Screening examination TECHNIQUE: Imaging protocol: Bilateral Screening tomosynthesis and 2D mammography including computer-aided detection (CAD) when performed. COMPARISON: 1. MG MM DIG SCREENING MAMM BI W/CAD 06/14/2023 10:47 AM 2. MG MM DIG SCREENING MAMM BI W/CAD 06/23/2022 8:28 AM FINDINGS: MAMMOGRAPHY: Breast composition: There are scattered areas of fibroglandular density. Mass: None. Architectural distortion: No new or suspicious architectural distortion. Calcifications: Stable benign-appearing calcifications are present. No new or suspicious cluster of microcalcifications have developed. Asymmetric density: No new or suspicious asymmetric density is present Skin thickening: None. Axillary adenopathy: None. IMPRESSION: No mammographic evidence of malignancy. Recommend annual screening mammography unless otherwise clinically indicated. ASSESSMENT: BI-RADS category 2: Benign.
--- NOTE | 2024-07-03 08:47 | XR_ITS ---
FINAL REPORT TECHNIQUE: Bone densitometry calculations of the lumbar spine and left hip were obtained. CLINICAL HISTORY: SCREENING COMPARISON: 06/17/2023 FINDINGS: Using L1-4, the bone mineral density of the spine is 0.887 g/cm2, corresponding to T-score of -1.5. Using the left hip, the bone mineral density of the femoral neck is 0.573 g/cm2, corresponding to a T-score of -2.5. NOTE: T-score: Standard deviation compared with peak bone mass of young adult mean. *Following the recommendations of the International Society of Bone Densitometry, classification of hip BMD is based on the lower of two T-scores; total hip or femoral neck. IMPRESSION: Osteoporosis: Lowest T-score is at or below -2.5 for the left hip. This patient's T-score meets the World Health Organization criteria for osteoporosis. Reviewed, Interpreted and Dictated by Roberto Moe III, MD Transcribed by Peg Gutierrez Authenticated and . [facility]
== END 2024-07-03 23:59 | disposition home or self-care (01) ==
LOC: RAD 08:42
PROVIDERS: PCP Nurse Practitioner Family; Visit Provider Nurse Practitioner Family
DX: Z12.31 Encounter for screening mammogram for malignant neoplasm of breast (principal); Z78.0 Asymptomatic menopausal state
CPT/HCPCS: 77063; 77067; 77080

== ENCOUNTER 2024-09-11 10:36 | Outpatient (CLI) | payer MEDICARE, BC, SELFPAY ==
[2024-09-11 11:17] LABS: Basophils # 0.1 K/mm3 (0-0.2); Basophils % 1.1 % (0.1-2.0); Eosinophils # 0.2 K/mm3 (0.0-0.4); Eosinophils % 2.1 % (0.1-12.0); Hematocrit 42.2 % (37.0-47.0); Hemoglobin 14.9 g/dL (12.2-16.2); Lymphocytes # 2.7 K/mm3 (0.7-4.5); Lymphocytes % 39.1 % (10-50); Mean Corpuscular HGB Conc 35.2 g/dL (31.8-35.4); Mean Corpuscular Volume 90.9 fl (81-99); Mean Platelet Volume 7.9 fl (7.4-10.4); Monocytes # 0.5 K/mm3 (0.1-1.0); Monocytes % 7.4 % (1.7-9.3); Neutrophils # 3.5 K/mm3 (1.8-7.8); Neutrophils % 50.2 % (37.0-80.0); Platelet Count 274 K/mm3 (142-424); Red Blood Count 4.65 M/mm3 (4.20-5.40)
[2024-09-11 11:29] LABS: Alanine Aminotransferase 17 U/L (12-78); Albumin/Globulin Ratio 1.5 (1.1-1.8); Alkaline Phosphatase 35 U/L (38-126); Anion Gap 6.7 mEq/L (5-15); Aspartate Amino Transferase 29 U/L (14-36); Bilirubin,Total 0.8 mg/dl (0.2-1.3); Blood Urea Nitrogen 19 mg/dl (7-17); Calcium 9.6 mg/dl (8.4-10.2); Carbon Dioxide 32 mmol/L (22.0-30.0); Chloride 105 mmol/L (98-107); Estimated Glomerular Filt Rate 72 ml/min (>60); GFR (African American) 87 ML/MIN (>60); Globulin 2.6 g/dL (1.3-3.2); Glucose 84 mg/dl (74-100); Potassium 3.7 mmoL/L (3.5-5.1); Sodium 140 mmol/L (136-145); Total Protein,Serum 6.6 g/dl (6.3-8.2)
[2024-09-11 11:34] LABS: C-Reactive Protein 0.4 mg/L (0-4)
[2024-09-11 13:24] LABS: Erythrocyte Sedimentation Rate 12 mm/hr (0-30)
== END 2024-09-11 23:59 | disposition home or self-care (01) ==
LOC: LAB 10:37
PROVIDERS: PCP Nurse Practitioner Family; Visit Provider Internal Medicine Rheumatology
DX: K50.919 Crohn's disease, unspecified, with unspecified complications (principal); Z79.899 Other long term (current) drug therapy
CPT/HCPCS: 36415; 80053; 85025; 85651; 86140

== ENCOUNTER 2024-12-13 08:39 | Outpatient (CLI) | payer MEDICARE, BC, SELFPAY ==
[2024-12-13 09:11] LABS: Basophils # 0.1 K/mm3 (0-0.2); Eosinophils # 0.2 K/mm3 (0.0-0.4); Eosinophils % 2.7 % (0.1-12.0); Hematocrit 37.2 % (37.0-47.0); Hemoglobin 12.6 g/dL (12.2-16.2); Lymphocytes # 2.7 K/mm3 (0.7-4.5); Lymphocytes % 37.5 % (10-50); Mean Corpuscular HGB Conc 33.9 g/dL (31.8-35.4); Mean Corpuscular Hemoglobin 31.6 pg (27.0-31.2); Mean Corpuscular Volume 93.2 fl (81-99); Mean Platelet Volume 9.7 fl (7.4-10.4); Monocytes # 0.8 K/mm3 (0.1-1.0); Monocytes % 10.6 % (1.7-9.3); Neutrophils # 3.4 K/mm3 (1.8-7.8); Neutrophils % 47.9 % (37.0-80.0); Platelet Count 254 K/mm3 (142-424); Red Blood Count 3.99 M/mm3 (4.20-5.40); Red Cell Distribution Width 12.9 % (11.5-17.5); White Blood Count 7.1 K/mm3 (4.8-10.8)
[2024-12-13 10:02] LABS: Alanine Aminotransferase 17 U/L (12-78); Albumin Level 3.6 g/dl (3.5-5.0); Albumin/Globulin Ratio 1.6 (1.1-1.8); Alkaline Phosphatase 39 U/L (38-126); Aspartate Amino Transferase 29 U/L (14-36); Bilirubin,Total 0.7 mg/dl (0.2-1.3); Blood Urea Nitrogen 13 mg/dl (7-17); Calcium 9.3 mg/dl (8.4-10.2); Carbon Dioxide 29 mmol/L (22.0-30.0); Chloride 106 mmol/L (98-107); Estimated Glomerular Filt Rate 84 ml/min (>60); GFR (African American) 101 ML/MIN (>60); Globulin 2.3 g/dL (1.3-3.2); Glucose 82 mg/dl (74-100); Sodium 142 mmol/L (136-145); Total Protein,Serum 5.9 g/dl (6.3-8.2)
[2024-12-13 10:07] LABS: C-Reactive Protein 0.7 mg/L (0-4)
[2024-12-13 10:26] LABS: Erythrocyte Sedimentation Rate 15 mm/hr (0-30)
== END 2024-12-13 23:59 | disposition home or self-care (01) ==
LOC: LAB 08:43
PROVIDERS: PCP Nurse Practitioner Family; Visit Provider Internal Medicine Rheumatology
DX: K50.919 Crohn's disease, unspecified, with unspecified complications (principal); L40.50 Arthropathic psoriasis, unspecified; D84.821 Immunodeficiency due to drugs; Z79.899 Other long term (current) drug therapy
CPT/HCPCS: 36415; 80053; 85025; 85651; 86140

== ENCOUNTER 2025-03-19 09:00 | Outpatient (CLI) | payer MEDICARE, BC, SELFPAY ==
[2025-03-19 09:07] LABS: MANUAL DIFFERENTIAL MANUAL DIFFERENTIAL (MANUAL DIFF)
[2025-03-19 09:24] LABS: Basophils # 0.1 K/mm3 (0-0.2); Eosinophils # 0.3 Kmm3 (0.0-0.4); Eosinophils % 4.5 % (0.1-12.0); Hematocrit 39.8 % (37.0-47.0); Hemoglobin 13.5 g/dL (12.2-16.2); Lymphocytes # 2.5 K/mm3 (0.7-4.5); Lymphocytes % 36.2 % (10-50); Mean Corpuscular HGB Conc 33.9 g/dL (31.8-35.4); Mean Corpuscular Hemoglobin 31.3 pg (27.0-31.2); Mean Corpuscular Volume 92.3 fl (81-99); Mean Platelet Volume 9.7 fl (7.4-10.4); Monocytes # 0.7 K/mm3 (0.1-1.0); Monocytes % 10.5 % (1.7-9.3); Neutrophils # 3.3 K/mm3 (1.8-7.8); Neutrophils % 47.7 % (37.0-80.0); Platelet Count 277 K/mm3 (142-424); Red Blood Count 4.31 M/mm3 (4.20-5.40); Red Cell Distribution Width 12.6 % (11.5-17.5); White Blood Count 6.9 K/mm3 (4.8-10.8)
[2025-03-19 09:49] LABS: Chloride 107 mmol/L (98-107)
[2025-03-19 09:50] LABS: Albumin Level 3.9 g/dl (3.5-5.0); Potassium 3.7 mmoL/L (3.5-5.1); Sodium 141 mmol/L (136-145)
[2025-03-19 09:52] LABS: Blood Urea Nitrogen 7 mg/dl (7-17); Estimated Glomerular Filt Rate 72 ml/min (>60); GFR (African American) 87 ML/MIN (>60)
[2025-03-19 09:53] LABS: Alanine Aminotransferase 14 U/L (12-78); Albumin/Globulin Ratio 1.6 (1.1-1.8); Alkaline Phosphatase 50 U/L (38-126); Anion Gap 8.7 mEq/L (5-15); Aspartate Amino Transferase 28 U/L (14-36); Bilirubin,Total 0.8 mg/dl (0.2-1.3); Calcium 9.3 mg/dl (8.4-10.2); Carbon Dioxide 29 mmol/L (22.0-30.0); Globulin 2.5 g/dL (1.3-3.2); Glucose 81 mg/dl (74-100); Total Protein,Serum 6.4 g/dl (6.3-8.2)
[2025-03-19 09:57] LABS: Erythrocyte Sedimentation Rate 15 mm/hr (0-30)
[2025-03-19 09:58] LABS: C-Reactive Protein 0.4 mg/L (0-4)
[2025-03-19 10:38] LABS: Eosinophils % 3 % (0-3); Lymphocytes % 40 % (10-50); Monocytes % 2 % (2-9); Neutrophils % 55 % (42-76); Platelet Estimate Normal; RBC Morphology Normal; Total Cells Counted 100
== END 2025-03-19 23:59 | disposition home or self-care (01) ==
LOC: LAB 09:01
PROVIDERS: PCP Nurse Practitioner Family; Visit Provider Nurse Practitioner Family
DX: L40.50 Arthropathic psoriasis, unspecified (principal); K50.919 Crohn's disease, unspecified, with unspecified complications; D84.821 Immunodeficiency due to drugs; Z79.899 Other long term (current) drug therapy
CPT/HCPCS: 36415; 80053; 85007; 85014; 85018; 85048; 85049; 85651; 86140

== ENCOUNTER 2025-06-11 09:10 | Outpatient (CLI) | payer MEDICARE, BC, SELFPAY ==
--- OUTSIDE RECORDS SUMMARY | 2025-04-16 15:00 | XMS_ITS | Encounter Summary ---
Author Organization [facility] Address [address] [place] [address] Care Team Providers Care Hand Brim Ironer Name Role Phone Mitra Sargent APRN Primary Care Provid er Reason for Visit * Reason Comments Psoriatic arthritis Encounter Details Date Type Department Care Team (Latest Contact Info) Description 04/16/2025 3:00 PM EDT Office Visit [facility] RHEUMATOLOGY [address] [phone] Cecily Hanson APRN [address] [phone] Psoriatic arthritis (Primary Dx); Psoriasis; Osteoarthritis of lumbar spine, unspecified spinal osteoarthritis complication status; Crohn's disease with complication, unspecified gastrointestinal tract location; Osteoporosis without current pathological fracture, unspecified osteoporosis type; High risk medication use; Immunosuppression due to drug therapy; Chronic fatigue Social History Tobacco Use Types Packs/Day Years Used Date Smoking Tobacco: Never Passive Smoke Exposure: Past Smokeless Tobacco: Never Alcohol Use Standard Drinks/Week Comments Not Currently 0 (1 standard drink = 0.6 oz pur e alcohol) Comments Unknown Sex and Gender Information Value Date Recorded Sex Assigned at Female 04/16/2025 10:02 AM EDT Legal Sex Female 9:45 AM EDT Gender Identity Not on file Sexual Orientation Not on file documented as of this encounter Last Filed Vital Signs Vital Sign Reading Time Taken Comments Blood Pressure 128/80 04/16/2025 2:56 PM EDT Pulse 87 04/16/2025 2:56 PM EDT Temperature 36.2 C (97.2 F) 04/16/2025 2:56 PM EDT Respiratory Rate - - Oxygen Saturation - - Inhaled Oxygen Concentration - - Weight 67.7 kg (149 lb 3.2 oz) 04/16/2025 2:56 P M EDT Height 157.5 cm (5' 2.01 ) 04/16/2025 2:56 PM ED T Body Mass Index 27.28 04/16/2025 2:56 PM EDT documented in this encounter Progress Notes * Cecily Hanson APRN - 04/16/2025 3:00 PM EDTAssociated Problem(s): Psoriatic arthritis Her back is hurting more today. She just got back from [place]. She has occasional pain. XR of the SI joints with mild sclerosis which could be inflammatory or degenerative. No other signs of IA currently. * Cecily Hanson APRN - 04/16/2025 3:00 PM EDTAssociated Problem(s): Psoriasis scalp, ears, nails On Humira for Crohn's, but her psoriasis is breaking through Previous Rx: Remicade, Cimzia, Otezla, Humira (4 years) Current Rx: methotrexate 12.5 mg weekly, Stelara (04/2022). clobetasol shampoo Doing well. - She does develop psoriasis behind her ears. Topical ointments work well for her. - She does continue to have nail changes. * Cecily Hanson APRN - 04/16/2025 3:00 PM EDTAssociated Problem(s): Osteoarthritis of lumbar spine XR with degenerative arthritis of the lumbar spine continue cyclobenzaprine. - She is feeling better - PRN Tylenol - PRN prednisone sparingly - cannot take NSAIDs due to Crohn's * Cecily Hanson APRN - 04/16/2025 3:00 PM EDTAssociated Problem(s): Crohn's disease with complication Following with GI, she is not sure who since Dr. Samson left. - She had a colonoscopy on April 05 showing mildly active disease with a few ulcers in the terminal ileum. Previous Rx: Remicade, Cimzia, Otezla, Humira(4 years) Current Rx: methotrexate 12.5 mg weekly, Stelara (04/2022). She says she is doing well. No symptoms. - Colonoscopy went well 2023 -continue Stelara (started 04/2022) - continue follow up with GI - continue methotrexate 12.5 mg weekly (5 tablets) and daily Folic acid. Recheck in 3 months. * Cecily Hanson APRN - 04/16/2025 3:00 PM EDTAssociated Problem(s): Osteoporosis without current pathological fracture Density scan 06/23/2023 showed osteoporosis with lowest T-score being at the femoral neck with a score of -3.2. Spine was -2.3. Continue Actonel started 08/23/2022. * Cecily Hanson APRN - 04/16/2025 3:00 PM EDTAssociated Problem(s): High risk medication use She takes 5 tablets weekly in winter and deceases to 3 tablets weekly in spring. She will need every 6 to 8-week labs. Orders: C-reactive Protein; Standing Sedimentation Rate; Standing Comprehensive Metabolic Panel; Standing CBC & Differential; Future QuantiFERON-TB Gold Plus (Li-Hep); Future Hepatitis Panel, Acute; Future * Cecily Hanson APRN - 04/16/2025 3:00 PM EDTAssociated Problem(s): Immunosuppression due to drug therapy Stelara QTB negative 06/04/24 Hepatitis panel negative 08/20/20 No infections in the interim. Orders: C-reactive Protein; Standing Sedimentation Rate; Standing Comprehensive Metabolic Panel; Standing CBC & Differential; Future QuantiFERON-TB Gold Plus (Li-Hep); Future Hepatitis Panel, Acute; Future * Cecily Hanson APRN - 04/16/2025 3:00 PM EDTAssociated Problem(s): Chronic fatigue Update QTB and hepatitis panel Orders: QuantiFERON-TB Gold Plus (Li-Hep); Future Hepatitis Panel, Acute; Future * Cecily Hanson APRN - 04/16/2025 3:00 PM EDT Office Visit Date: 04/16/2025 Patient Name: Cele Ramírez Date of : 1960 Referring Physician: No ref. provider found Chief Complaint: Chief Complaint Patient presents with Psoriatic arthritis History of Present Illness: Cele Ramírez is a 65 y.o. female who is here today For follow-up of psoriatic arthritis in the setting of Crohn's disease. Today she reports feeling the same. She rates her pain 2 out of 10 and has 5 to 10 minutes of morning stiffness. Interim 04/16/2025: Today patient reports feeling the same. She rates her pain 2 out of 10, global 1out of 10 and 5 minutes of morning stiffness. She request refills of methotrexate and Flexeril today. Subjective Review of Systems: She denies all symptoms on review of symptoms page today Past Medical History: Past Medical History: Diagnosis Date Arthritis Crohn's disease Headache Hypertension Psoriasis Past Surgical History: Past Surgical History: Procedure Laterality Date APPENDECTOMY CHOLECYSTECTOMY HERNIA REPAIR MESH SURGERY TUBAL ABDOMINAL LIGATION Family History: Family History Problem Relation Age of Onset Hypertension Mother Basal cell carcinoma Father Heart failure Brother Alcohol abuse Other Hypertension Other Social History: Social History Socioeconomic History Marital status: Tobacco Use Smoking status: Never Passive exposure: Past Smokeless tobacco: Never Vaping Use Vaping status: Never Used Substance and Sexual Activity Alcohol use: Not Currently Drug use: Never Sexual activity: Defer Medications: Current Outpatient Medications: B Complex Vitamins (VITAMIN-B COMPLEX PO), Take 1 tablet by mouth 2 (Two) Times a Day., Disp: , Rfl: Calcium Carbonate (CALCIUM 500 PO), Take 1 tablet by mouth Daily. CHEWABLE, Disp: , Rfl: cetirizine (zyrTEC) 10 MG tablet, Take 1 tablet by mouth Daily., Disp: , Rfl: clobetasol propionate (CLOBEX) 0.05 % shampoo, Apply 1 Application topically to the appropriate area as directed. DIRECTED, Disp: , Rfl: cyclobenzaprine (FLEXERIL) 5 MG tablet, Take 1 tablet by mouth At Night As Needed for Muscle Spasms., Disp: 90 tablet, Rfl: 1 Diclofenac Sodium (Voltaren Arthritis Pain) 1 % gel gel, Apply 4 g topically to the appropriate area as directed 4 (Four) Times a Day As Needed., Disp: , Rfl: Docusate Calcium (STOOL SOFTENER PO), Take 1 tablet by mouth At Night As Needed., Disp: , Rfl: fluocinonide (LIDEX) 0.05 % cream, APPLY CREAM EXTERNALLY TO AFFECTED AREA TWICE DAILY NEEDED FOR RASH OR IRRITATION, Disp: 60 g, Rfl: 0 folic acid (FOLVITE) 1 MG tablet, Take 1 tablet by mouth Daily. 1 tablet by oral route every day, Disp: 90 tablet, Rfl: 3 Linzess 145 MCG capsule capsule, Take 1 capsule by mouth Every Morning Before Breakfast., Disp: , Rfl: losartan-hydrochlorothiazide (HYZAAR) 100-12.5 MG per tablet, Take 1 tablet by mouth Daily., Disp: , Rfl: Magnesium 250 MG tablet, Take 1 tablet by mouth Daily., Disp: , Rfl: methotrexate 2.5 MG tablet, Take 5 tablets by mouth 1 (One) Time Per Week., Disp: 60 tablet, Rfl: 1 multivitamin (MULTIVITAMIN PO), Take 1 tablet by mouth Daily. MULTI-DAY PLUS MINERALS, Disp: , Rfl: ondansetron (ZOFRAN) 4 MG tablet, Take 1 tablet by mouth Every 12 (Twelve) Hours As Needed., Disp: , Rfl: risedronate (ACTONEL) 150 MG tablet, with water on empty stomach, nothing by mouth or lie down for next 30 minutes., Disp: 3 tablet, Rfl: 1 Triamcinolone Acetonide 0.025 % lotion, Apply topically. DIRECTED, Disp: , Rfl: Ustekinumab (Stelara) 90 MG/ML solution prefilled syringe Injection, Inject 90 mg under the skin into the appropriate area as directed Every 8 (Eight) Weeks., Disp: 1 mL, Rfl: 2 Allergies: Allergies Allergen Reactions Latex Provider Review Needed Oxycodone Hcl Palpitations I have reviewed and updated the patient's chief complaint, history of present illness, review of systems, past medical history, surgical history, family history, social history, medications and allergy list as appropriate. Objective Vital Signs: Vitals: 04/16/25 1456 BP: 128/80 BP Location: Left arm Patient Position: Sitting Cuff Size: Adult Pulse: 87 Temp: 97.2 ??F (36.2 ??C) Weight: 67.7 kg (149 lb 3.2 oz) Height: 157.5 cm (62.01 ) PainSc: 2 PainLoc: Generalized Body mass index is 27.28 kg/m??. Defer to PCP Physical Exam: Physical Exam Vitals reviewed. Constitutional: Appearance: Normal appearance. HENT: Head: Normocephalic and atraumatic. Mouth/Throat: Mouth: Mucous membranes are moist. Eyes: Conjunctiva/sclera: Conjunctivae normal. Cardiovascular: Rate and Rhythm: Normal rate and regular rhythm. Pulses: Normal pulses. Heart sounds: Normal heart sounds. Pulmonary: Effort: Pulmonary effort is normal. Breath sounds: Normal breath sounds. Musculoskeletal: General: Normal range of motion. Cervical back: Normal range of motion and neck supple. Comments: No synovitis OA changes bilateral hands No enthesitis, synovitis or dactylitis Skin: General: Skin is warm and dry. Comments: She has nail changes of the thumbnails Neurological: General: No focal deficit present. Mental Status: She is alert and oriented to person, place, and time. Mental status is at baseline. Psychiatric: Mood and Affect: Mood normal. Behavior: Behavior normal. Thought Content: Thought content normal. Judgment: Judgment normal. Results Review: Imaging Results (Last 24 Hours) No results found for the last 24 hours. Procedures Assessment / Plan Assessment & Plan Psoriatic arthritis Her back is hurting more today. She just got back from [place]. She has occasional pain. XR of the SI joints with mild sclerosis which could be inflammatory or degenerative. No other signs of IA currently. Psoriasis scalp, ears, nails On Humira for Crohn's, but her psoriasis is breaking through Previous Rx: Remicade, Cimzia, Otezla, Humira (4 years) Current Rx: methotrexate 12.5 mg weekly, Stelara (04/2022). clobetasol shampoo Doing well. - She does develop psoriasis behind her ears. Topical ointments work well for her. - She does continue to have nail changes. Osteoarthritis of lumbar spine, unspecified spinal osteoarthritis complication status XR with degenerative arthritis of the lumbar spine continue cyclobenzaprine. - She is feeling better - PRN Tylenol - PRN prednisone sparingly - cannot take NSAIDs due to Crohn's Crohn's disease with complication, unspecified gastrointestinal tract location Following with GI, she is not sure who since Dr. Samson left. - She had a colonoscopy on April 05 showing mildly active disease with a few ulcers in the terminal ileum. Previous Rx: Remicade, Cimzia, Otezla, Humira(4 years) Current Rx: methotrexate 12.5 mg weekly, Stelara (04/2022). She says she is doing well. No symptoms. - Colonoscopy went well 2023 -continue Stelara (started 04/2022) - continue follow up with GI - continue methotrexate 12.5 mg weekly (5 tablets) and daily Folic acid. Recheck in 3 months. Osteoporosis without current pathological fracture, unspecified osteoporosis type Density scan 06/23/2023 showed osteoporosis with lowest T-score being at the femoral neck with a score of -3.2. Spine was -2.3. Continue Actonel started 08/23/2022. High risk medication use She takes 5 tablets weekly in winter and deceases to 3 tablets weekly in spring. She will need every 6 to 8-week labs. Orders: C-reactive Protein; Standing Sedimentation Rate; Standing Comprehensive Metabolic Panel; Standing CBC & Differential; Future QuantiFERON-TB Gold Plus (Li-Hep); Future Hepatitis Panel, Acute; Future Immunosuppression due to drug therapy Stelara QTB negative 06/04/24 Hepatitis panel negative 08/20/20 No infections in the interim. Orders: C-reactive Protein; Standing Sedimentation Rate; Standing Comprehensive Metabolic Panel; Standing CBC & Differential; Future QuantiFERON-TB Gold Plus (Li-Hep); Future Hepatitis Panel, Acute; Future Chronic fatigue Update QTB and hepatitis panel Orders: QuantiFERON-TB Gold Plus (Li-Hep); Future Hepatitis Panel, Acute; Future Follow Up: Return in about 4 months (around 08/17/2025) for Dr. Zarate. Cecily Hanson APRN [facility] Rheumatology Psychiatric documented in this encounter Plan of Treatment Upcoming Encounters Date Type Department Care Team (Late st Contact Info) Description 08/20/2025 2:00 PM EDT Office Visit [facility] RHEUMATOLOGY [address] [place] [phone] Cecily Hanson APRN [address] [place] [phone] 11/18/2025 1:30 PM EST Office Visit [facility] RHEUMATOLOGY [address] [place] [phone] David Zarate MD [address] [place] [phone] Scheduled Orders Name Type Priority Associated Diagnoses Orde r Schedule C-reactive Protein Lab Routine Psoriatic arthritis High risk medication use Immunosuppression due to drug therapy Every 8 Weeks for 4 Occurrences starting 04/16/2025 until 04/16/2026 Sedimentation Rate Lab Routine Psoriatic arthritis High risk medication use Immunosuppression due to drug therapy Every 8 Weeks for 4 Occurrences starting 04/16/2025 until 04/16/2026 Comprehensive Metabolic Panel Lab Routine Psoriatic arthritis High risk medication use Immunosuppression due to drug therapy Every 8 Weeks for 4 Occurrences starting 04/16/2025 until 04/16/2026 CBC & Differential Lab Panel Routine Psoriatic arthritis High risk medication use Immunosuppression due to drug therapy Expected: 04/21/2025 (Approximate), Expires: 07/17/2026 QuantiFERON-TB Gold Plus (Li-Hep) Lab Routine Psoriatic arthritis High risk medication use Immunosuppression due to drug therapy Chronic fatigue Expected: 10/13/2025 (Approximate), Expires: 07/17/2026 Hepatitis Panel, Acute Lab Routine Psoriatic arthritis High risk medication use Immunosuppression due to drug therapy Chronic fatigue Expected: 04/21/2025 (Approximate), Expires: 04/16/2026 documented as of this encounter Goals Goal Patient Goal Type Associated Problems Recent Progress Patient-Stated? Author Specialty Pharmacy General Goal General On track( 025 8:30 AM EST) No Fritz Pack, PharmD Note: Reduce number of flares and pain score. 2.20.25: Patient has had great reduction of pain in joints as well as remission of crohns documented as of this encounter Visit Diagnoses Diagnosis Psoriatic arthritis- Primary Psoriatic arthropathy Psoriasis Other psoriasis Osteoarthritis of lumbar spine, unspecified spinal osteoarthritis complication status Crohn's disease with complication, unspecified gastrointestinal tract location Osteoporosis without current pathological fracture, unspecified osteoporosis type High risk medication use Immunosuppression due to drug therapy Chronic fatigue Other malaise and fatigue documented in this encounter Care Teams Hand Brim Ironer Relationship Specialty Start Date End Date Mitra Sargent APRN [address] [place] [facility] [address] [place] [address] PCP - General Family Medicine 06/18/24 documented as of this encounter
--- OUTSIDE RECORDS SUMMARY | 2025-06-11 09:13 | XMS_ITS | Encounter Summary ---
Author Organization [employer] ([place], [place], [place], [place]) Address [address] [place] [address] Care Team Providers Care Telemetry Technician Name Role Phone Hammad Tiwari MD Primary Care Provider [phone] Encounter Details Date Type Department Care Team (Late st Contact Info) Description 04/05/2022 Transcribed Document [facility] Family Medicine [address] [place] [address] ProviderMichelle MD [address] [place] [address] Social History Tobacco Use Types Packs/Day Years Used Date Smoking Tobacco: Never Assessed Family and Community Support Answer Billy e Recorded Help with Day to Day Activities Not on file 12/09/2023 Feeling Lonely or Isolated Not on file 12/09 Educational Attainment Answer Date Elton rded Speak language other than Latvian at home Not on file 12/09/2023 Want help with school or training Not on file 12/09/2023 Substance Use Answer Date Recorded Used prescription meds for non-medical reasons N ot on file 12/09/2023 Used illegal drugs past 12 months Not on file 12/09/2023 Comments Unknown Sex and Gender Information Value Date Recorded Sex Assigned at Not on file Legal Sex Female 1:09 PM CDT Gender Identity Not on file Sexual Orientation Not on file documented as of this encounter Miscellaneous Notes * Cerner Conversion Note - Historical ProviderMD - 04/05/2022 11:01 AM CDT [address], [place] [id number] CELE LIND :1960 Visit Time:04/05/2022 What to do next Instructions From Your Care Team Diet after Discharge: Resume usual diet as tolerated, Do not drink any alcoholic beverages, Drink at least 8-10 glasses of water per day May Return to Work/School: tomorrow Notify Provider of: any questions or problems Activity after Discharge: As tolerated, Rest and relax today, No strenuous activity Driving after Discharge: Do not drive for 24 hours Go directly to the emergency room if you notice any of the following: Chills and fever over 101 Persistent vomiting or vomiting with blood Severe abdominal pain, other than gas cramps Severe chest pain Black, tarry stools Any bleeding - exceeding one tablespoon Follow-Up Appointments Follow Up with KEMAR FELDER MD-[facility]E When In 3 years Comments The office will contact you with pathology results in 7-10 days. Where: [address] [place] [address] [address] [place] [id number]- Medications What How Much When Instructions Next Dose adalimumab (Humira) 40 Milligram(s) SubCutaneous Every Two Weeks calcium-vitamin D (calcium-vitamin D 250 mg-12.5 mcg (500 intl units) oral tablet, chewable) 2 Tablet(s) Chew Twice a Day With Meals cholecalciferol (Prevagen Extra Strength) Oral Every Day cyclobenzaprine (cyclobenzaprine 5 mg oral tablet) Oral Three Times A Day docusate (Dulcolax Stool Softener) Oral Two Times A Day folic acid (folic acid 1 mg oral tablet) Oral Every Day hydrochlorothiazide-lisinopril (hydroCHLOROthiazide-lisinopril 12.5 mg-20 mg oral tablet) 1 Tablet(s) Oral Every Day magnesium chloride mesalamine (mesalamine 0.375 g oral capsule, extended release) 4 Capsule(s) Oral Every Morning methotrexate 2.5 Milligram(s) Oral Weekly multivitamin (B 50 Complex) multivitamin (Multiple Vitamins oral capsule) 1 Capsule(s) Oral Every Day ondansetron (ondansetron 4 mg oral tablet) 1 Tablet(s) Oral Every 8 Hours as needed for Nausea Take your medications faithfully. Do NOT skip medication. Do NOT stop taking medications without the direction of a physician. Carry a list of your medications with you at all times, and take this medication list with you to your first follow up visit. Report any side effects. Avoid herbal remedies unless discussed with your physician. As part of your treatment plan, your physician may have prescribed a limited course of a controlled substance. This medication may be given to help people with moderate or severe pain or for other medical conditions, but there are risks involved with treatment. Common side effects may include nausea, constipation, drowsiness, sweating, itching, dry mouth, and rash. More serious side effects may include cognitive and motor impairment, like problems with thinking, concentrating, alertness, and movement (e.g. slowed reflexes), and driving and operating heavy machinery can be dangerous. It is important for you to talk to your physician if you have these side effects or questions. These controlled substances can produce physical dependence and be habit-forming if taken for an extended period of time, which means that the body has gotten used to them and may experience withdrawal symptoms if they are abruptly stopped. Withdrawal symptoms can include runny nose, sweating, goose bumps, diarrhea, abdominal cramping, rapid heartbeat, difficulty sleeping, and nervousness. Please dispose of unused and medications per pharmacy guidance. Education Materials Monitored Anesthesia Care, Care After This sheet gives you information about how to care for yourself after your procedure. Your health care provider may also give you more specific instructions. If you have problems or questions, contact your health care provider. What can I expect after the procedure? After the procedure, it is common to have: ??? Tiredness. ??? Forgetfulness about what happened after the procedure. ??? Impaired judgment for important decisions. ??? Nausea or vomiting. ??? Some difficulty with balance. Follow these instructions at home: For the time period you were told by your health care provider: ??? Rest as needed. ??? Do not participate in activities where you could fall or become injured. ??? Do not drive or use machinery. ??? Do not drink alcohol. ??? Do not take sleeping pills or medicines that cause drowsiness. ??? Do not make important decisions or sign legal documents. ??? Do not take care of children on your own. Eating and drinking ??? Follow the diet that is recommended by your health care provider. ??? Drink enough fluid to keep your urine pale yellow. ??? If you vomit: ? Drink water, juice, or soup when you can drink without vomiting. ? Make sure you have little or no nausea before eating solid foods. General instructions ??? Have a responsible adult stay with you for the time you are told. It is important to have someone help care for you until you are awake and alert. ??? Take kgwb-nig-poqoaop and prescription medicines only as told by your health care provider. ??? If you have sleep apnea, surgery and certain medicines can increase your risk for breathing problems. Follow instructions from your health care provider about wearing your sleep device: ? Anytime you are sleeping, including during daytime naps. ? While taking prescription pain medicines, sleeping medicines, or medicines that make you drowsy. ??? Avoid smoking. ??? Keep all follow-up visits as told by your health care provider. This is important. Contact a health care provider if: ??? You keep feeling nauseous or you keep vomiting. ??? You feel light-headed. ??? You are still sleepy or having trouble with balance after 24 hours. ??? You develop a rash. ??? You have a fever. ??? You have redness or swelling around the IV site. Get help right away if: ??? You have trouble breathing. ??? You have new-onset confusion at home. Summary ??? For several hours after your procedure, you may feel tired. You may also be forgetful and have poor judgment. ??? Have a responsible adult stay with you for the time you are told. It is important to have someone help care for you until you are awake and alert. ??? Rest as told. Do not drive or operate machinery. Do not drink alcohol or take sleeping pills. ??? Get help right away if you have trouble breathing, or if you suddenly become confused. This information is not intended to replace advice given to you by your health care provider. Make sure you discuss any questions you have with your health care provider. Document Revised: 07/23/2021 Document Reviewed: 10/09/2020 [employer] Patient Education ?? 2020 [employer] Hemorrhoids Hemorrhoids are swollen veins that may develop: ??? In the butt (rectum). These are called internal hemorrhoids. ??? Around the opening of the butt (anus). These are called external hemorrhoids. Hemorrhoids can cause pain, itching, or bleeding. Most of the time, they do not cause serious problems. They usually get better with diet changes, lifestyle changes, and other home treatments. What are the causes? This condition may be caused by: ??? Having trouble pooping (constipation). ??? Pushing hard (straining) to poop. ??? Watery poop (diarrhea). ??? . ??? Being very overweight (obese). ??? Sitting for long periods of time. ??? Heavy lifting or other activity that causes you to strain. ??? Anal sex. ??? Riding a bike for a long period of time. What are the signs or symptoms? Symptoms of this condition include: ??? Pain. ??? Itching or soreness in the butt. ??? Bleeding from the butt. ??? Leaking poop. ??? Swelling in the area. ??? One or more lumps around the opening of your butt. How is this diagnosed? A doctor can often diagnose this condition by looking at the affected area. The doctor may also: ??? Do an exam that involves feeling the area with a gloved hand (digital rectal exam). ??? Examine the area inside your butt using a small tube (anoscope). ??? Order blood tests. This may be done if you have lost a lot of blood. ??? Have you get a test that involves looking inside the colon using a flexible tube with a camera on the end (sigmoidoscopy or colonoscopy). How is this treated? This condition can usually be treated at home. Your doctor may tell you to change what you eat, make lifestyle changes, or try home treatments. If these do not help, procedures can be done to remove the hemorrhoids or make them smaller. These may involve: ??? Placing rubber bands at the base of the hemorrhoids to cut off their blood supply. ??? Injecting medicine into the hemorrhoids to shrink them. ??? Shining a type of light energy onto the hemorrhoids to cause them to fall off. ??? Doing surgery to remove the hemorrhoids or cut off their blood supply. Follow these instructions at home: Eating and drinking ??? Eat foods that have a lot of fiber in them. These include whole grains, beans, nuts, fruits, and vegetables. ??? Ask your doctor about taking products that have added fiber (fibersupplements). ??? Reduce the amount of fat in your diet. You can do this by: ? Eating low-fat dairy products. ? Eating less red meat. ? Avoiding processed foods. ??? Drink enough fluid to keep your pee (urine) pale yellow. Managing pain and swelling ??? Take a warm-water bath (sitz bath) for 20 minutes to ease pain. Do this 3???4 times a day. You may do this in a bathtub or using a portable sitz bath that fits over the toilet. ??? If told, put ice on the painful area. It may be helpful to use ice between your warm baths. ? Put ice in a plastic bag. ? Place a towel between your skin and the bag. ? Leave the ice on for 20 minutes, 2???3 times a day. General instructions ??? Take fqwl-cfe-bhneszx and prescription medicines only as told by your doctor. ? Medicated creams and medicines may be used as told. ??? Exercise often. Ask your doctor how much and what kind of exercise is best for you. ??? Go to the bathroom when you have the urge to poop. Do not wait. ??? Avoid pushing too hard when you poop. ??? Keep your butt dry and clean. Use wet toilet paper or moist towelettes after pooping. ??? Do not sit on the toilet for a long time. ??? Keep all follow-up visits as told by your doctor. This is important. Contact a doctor if you: ??? Have pain and swelling that do not get better with treatment or medicine. ??? Have trouble pooping. ??? Cannot poop. ??? Have pain or swelling outside the area of the hemorrhoids. Get help right away if you have: ??? Bleeding that will not stop. Summary ??? Hemorrhoids are swollen veins in the butt or around the opening of the butt. ??? They can cause pain, itching, or bleeding. ??? Eat foods that have a lot of fiber in them. These include whole grains, beans, nuts, fruits, and vegetables. ??? Take a warm-water bath (sitz bath) for 20 minutes to ease pain. Do this 3???4 times a day. This information is not intended to replace advice given to you by your health care provider. Make sure you discuss any questions you have with your health care provider. Document Revised: 11/15/2019 Document Reviewed: 03/29/2019 [employer] Patient Education ?? 2020 [employer]. Diverticulosis Diverticulosis is a condition that develops when small pouches (diverticula) form in the wall of the large intestine (colon). The colon is where water is absorbed and stool (feces) is formed. The pouches form when the inside layer of the colon pushes through weak spots in the outer layers of the colon. You may have a few pouches or many of them. The pouches usually do not cause problems unless they become inflamed or infected. When this happens, the condition is called diverticulitis. What are the causes? The cause of this condition is not known. What increases the risk? The following factors may make you more likely to develop this condition: ??? Being older than age 60. Your risk for this condition increases with age. Diverticulosis is rare among people younger than age 30. By age 80, many people have it. ??? Eating a low-fiber diet. ??? Having frequent constipation. ??? Being overweight. ??? Not getting enough exercise. ??? Smoking. ??? Taking emif-eiw-dctrlit pain medicines, like aspirin and ibuprofen. ??? Having a family history of diverticulosis. What are the signs or symptoms? In most people, there are no symptoms of this condition. If you do have symptoms, they may include: ??? Bloating. ??? Cramps in the abdomen. ??? Constipation or diarrhea. ??? Pain in the lower left side of the abdomen. How is this diagnosed? Because diverticulosis usually has no symptoms, it is most often diagnosed during an exam for other colon problems. The condition may be diagnosed by: ??? Using a flexible scope to examine the colon (colonoscopy). ??? Taking an X-ray of the colon after dye has been put into the colon (barium enema). ??? Having a CT scan. How is this treated? You may not need treatment for this condition. Your health care provider may recommend treatment to prevent problems. You may need treatment if you have symptoms or if you previously had diverticulitis. Treatment may include: ??? Eating a high-fiber diet. ??? Taking a fiber supplement. ??? Taking a live bacteria supplement (probiotic). ??? Taking medicine to relax your colon. Follow these instructions at home: Medicines ??? Take qpoq-awn-orcpnln and prescription medicines only as told by your health care provider. ??? If told by your health care provider, take a fiber supplement or probiotic. Constipation prevention Your condition may cause constipation. To prevent or treat constipation, you may need to: ??? Drink enough fluid to keep your urine pale yellow. ??? Take glgf-bzh-zjxzxmj or prescription medicines. ??? Eat foods that are high in fiber, such as beans, whole grains, and fresh fruits and vegetables. ??? Limit foods that are high in fat and processed sugars, such as fried or sweet foods. General instructions ??? Try not to strain when you have a bowel movement. ??? Keep all follow-up visits as told by your health care provider. This is important. Contact a health care provider if you: ??? Have pain in your abdomen. ??? Have bloating. ??? Have cramps. ??? Have not had a bowel movement in 3 days. Get help right away if: ??? Your pain gets worse. ??? Your bloating becomes very bad. ??? You have a fever or chills, and your symptoms suddenly get worse. ??? You vomit. ??? You have bowel movements that are bloody or black. ??? You have bleeding from your rectum. Summary ??? Diverticulosis is a condition that develops when small pouches (diverticula) form in the wall of the large intestine (colon). ??? You may have a few pouches or many of them. ??? This condition is most often diagnosed during an exam for other colon problems. ??? Treatment may include increasing the fiber in your diet, taking supplements, or taking medicines. This information is not intended to replace advice given to you by your health care provider. Make sure you discuss any questions you have with your health care provider. Document Revised: 06/05/2020 Document Reviewed: 06/05/2020 [employer] Patient Education ?? 2020 [employer]. Colonoscopy, Adult, Care After This sheet gives you information about how to care for yourself after your procedure. Your doctor may also give you more specific instructions. If you have problems or questions, call your doctor. What can I expect after the procedure? After the procedure, it is common to have: ??? A small amount of blood in your poop (stool) for 24 hours. ??? Some gas. ??? Mild cramping or bloating in your belly (abdomen). Follow these instructions at home: Eating and drinking ??? Drink enough fluid to keep your pee (urine) pale yellow. ??? Follow instructions from your doctor about what you cannot eat or drink. ??? Return to your normal diet as told by your doctor. Avoid heavy or fried foods that are hard to digest. Activity ??? Rest as told by your doctor. ??? Do not sit for a long time without moving. Get up to take short walks every 1???2 hours. This is important. Ask for help if you feel weak or unsteady. ??? Return to your normal activities as told by your doctor. Ask your doctor what activities are safe for you. To help cramping and bloating: ??? Try walking around. ??? Put heat on your belly as told by your doctor. Use the heat source that your doctor recommends, such as a moist heat pack or a heating pad. ? Put a towel between your skin and the heat source. ? Leave the heat on for 20???30 minutes. ? Remove the heat if your skin turns bright red. This is very important if you are unable to feel pain, heat, or cold. You may have a greater risk of getting burned. General instructions ??? If you were given a medicine to help you relax (sedative) during your procedure, it can affect you for many hours. Do not drive or use machinery until your doctor says that it is safe. ??? For the first 24 hours after the procedure: ? Do not sign important documents. ? Do not drink alcohol. ? Do your daily activities more slowly than normal. ? Eat foods that are soft and easy to digest. ??? Take hfff-kzy-atjpzjs or prescription medicines only as told by your doctor. ??? Keep all follow-up visits as told by your doctor. This is important. Contact a doctor if: ??? You have blood in your poop 2???3 days after the procedure. Get help right away if: ??? You have more than a small amount of blood in your poop. ??? You see large clumps of tissue (blood clots) in your poop. ??? Your belly is swollen. ??? You feel like you may vomit (nauseous). ??? You vomit. ??? You have a fever. ??? You have belly pain that gets worse, and medicine does not help your pain. Summary ??? After the procedure, it is common to have a small amount of blood in your poop. You may also have mild cramping and bloating in your belly. ??? If you were given a medicine to help you relax (sedative) during your procedure, it can affect you for many hours. Do not drive or use machinery until your doctor says that it is safe. ??? Get help right away if you have a lot of blood in your poop, feel like you may vomit, have a fever, or have more belly pain. This information is not intended to replace advice given to you by your health care provider. Make sure you discuss any questions you have with your health care provider. Document Revised: 09/12/2020 Document Reviewed: 06/02/2020 [employer] Patient Education ?? 2020 [employer]. Colon Polyps Colon polyps are tissue growths inside the colon, which is part of the large intestine. They are one of the types of polyps that can grow in the body. A polyp may be a round bump or a mushroom-shaped growth. You could have one polyp or more than one. Most colon polyps are noncancerous (benign). However, some colon polyps can become cancerous over time. Finding and removing the polyps early can help prevent this. What are the causes? The exact cause of colon polyps is not known. What increases the risk? The following factors may make you more likely to develop this condition: ??? Having a family history of colorectal cancer or colon polyps. ??? Being older than 45 years of age. ??? Being younger than 45 years of age and having a significant family history of colorectal cancer or colon polyps or a genetic condition that puts you at higher risk of getting colon polyps. ??? Having inflammatory bowel disease, such as ulcerative colitis or Crohn's disease. ??? Having certain conditions passed from parent to child (hereditary conditions), such as: ? Familial adenomatous polyposis (FAP). ? Camejo syndrome. ? Turcot syndrome. ? Peutz???Jeghers syndrome. ? MUTYH-associated polyposis (MAP). ??? Being overweight. ??? Certain lifestyle factors. These include smoking cigarettes, drinking too much alcohol, not getting enough exercise, and eating a diet that is high in fat and red meat and low in fiber. ??? Having had childhood cancer that was treated with radiation of the abdomen. What are the signs or symptoms? Many times, there are no symptoms. If you have symptoms, they may include: ??? Blood coming from the rectum during a bowel movement. ??? Blood in the stool (feces). The blood may be bright red or very dark in color. ??? Pain in the abdomen. ??? A change in bowel habits, such as constipation or diarrhea. How is this diagnosed? This condition is diagnosed with a colonoscopy. This is a procedure in which a lighted, flexible scope is inserted into the opening between the buttocks (anus) and then passed into the colon to examine the area. Polyps are sometimes found when a colonoscopy is done as part of routine cancer screening tests. How is this treated? This condition is treated by removing any polyps that are found. Most polyps can be removed during a colonoscopy. Those polyps will then be tested for cancer. Additional treatment may be needed depending on the results of testing. Follow these instructions at home: Eating and drinking ??? Eat foods that are high in fiber, such as fruits, vegetables, and whole grains. ??? Eat foods that are high in calcium and vitamin D, such as milk, cheese, yogurt, eggs, liver, fish, and broccoli. ??? Limit foods that are high in fat, such as fried foods and desserts. ??? Limit the amount of red meat, precooked or cured meat, or other processed meat that you eat, such as hot dogs, sausages, [place], or meat loaves. ??? Limit sugary drinks. Lifestyle ??? Maintain a healthy weight, or lose weight if recommended by your health care provider. ??? Exercise every day or as told by your health care provider. ??? Do not use any products that contain nicotine or tobacco, such as cigarettes, e-cigarettes, and chewing tobacco. If you need help quitting, ask your health care provider. ??? Do not drink alcohol if: ? Your health care provider tells you not to drink. ? You are , may be , or are planning to become . ??? If you drink alcohol: ? Limit how much you use to: ? 0???1 drink a day for women. ? 0???2 drinks a day for men. ? Know how much alcohol is in your drink. In the [place] one drink equals one 12 oz bottle of beer (355 mL), one 5 oz glass of wine (148 mL), or one 1?? oz glass of hard liquor (44 mL). General instructions ??? Take pyzh-lwh-dulgdiq and prescription medicines only as told by your health care provider. ??? Keep all follow-up visits. This is important. This includes having regularly scheduled colonoscopies. Talk to your health care provider about when you need a colonoscopy. Contact a health care provider if: ??? You have new or worsening bleeding during a bowel movement. ??? You have new or increased blood in your stool. ??? You have a change in bowel habits. ??? You lose weight for no known reason. Summary ??? Colon polyps are tissue growths inside the colon, which is part of the large intestine. They are one type of polyp that can grow in the body. ??? Most colon polyps are noncancerous (benign), but some can become cancerous over time. ??? This condition is diagnosed with a colonoscopy. ??? This condition is treated by removing any polyps that are found. Most polyps can be removed during a colonoscopy. This information is not intended to replace advice given to you by your health care provider. Make sure you discuss any questions you have with your health care provider. Document Revised: 02/25/2021 Document Reviewed: 02/25/2021 [employer] Patient Education ?? 2020 [employer] Emergency Awareness and Preventative Care STROKE is an EMERGENCY Every Minute Counts Act FAST and Check for these signs: FACE Does the face look uneven? ARM Does one arm drift down? SPEECH Does their speech sound strange? TIME Call at any sign of stroke Stroke Risk Factors Atrial Fibrillation (irregular heartbeat) Diabetes Family history of stroke Heart Disease Heavy alcohol use High Blood Pressure High Cholesterol Physical inactivity and obesity Smoking Cigarette Smoking The facts are clear, cigarette smoking will shorten your life. Smoking can cause many illnesses along the way. As a healthcare provider, we recommend that you stop smoking. Assistance with quitting is available by contacting 3-579-SUBRNOW. This is a free resource providing counseling, support, and referral. Or you may contact your personal physician. [employer] Suicide Prevention Lifeline: The National Suicide Prevention Lifeline is a national network of local crisis centers that provides free and confidential emotional support to people in suicidal crisis or emotional distress 24 hours a day, 7 days a week. Don't Wait! Stop a Heart Attack Before it Starts What is a heart attack? A heart attack is damage or to a part of the heart from severely decreased or lack of blood flow to the heart. Over time, arteries can become narrow from the buildup of fat and cholesterol, which is called plaque. The plaque can rupture causing a blood clot to form. When the blood clot forms, the artery can become severely narrowed or completely blocked, causing a heart attack. Heart attack is the leading cause of in the [place]. 85% of muscle damage occurs within the first 2 hours. Delay in the recognition of heart attack symptoms increases the chances of . Know the early symptoms of a heart attack: Nausea Feeling of fullness in chest Jaw Pain Pain that travels down one or both arms Fatigue/being tired Anxiety Back Pain Chest pressure, squeezing, or discomfort Shortness of breath Sweating, or a cold sweat Feeling of impending doom There are unusual signs of a heart attack, too! Women, the elderly, and diabetics may present with atypical symptoms: Fainting/dizziness Weakness Confusion Risk Factors for a Heart Attack Some heart disease risk factors, such as age and family history, cannot be changed. Others, like smoking and lack of exercise, can be changed. Smoking High Cholesterol High Blood Pressure Family History Obesity Age Gender (Males are at higher risk) Lack of Exercise Diabetes Diet Stress Excessive Alcohol Intake If you or someone you know is experiencing the signs and symptoms of a heart attack, DON???T DELAY. Call immediately and seek help. If someone collapses, perform CPR! Do not attempt to drive if you are having symptoms of heart attack. Hands-Only CPR Why Hands-Only CPR? Hands-Only CPR has been shown to be as effective as conventional CPR for cardiac arrests that occur outside of a hospital. Survival depends on immediately receiving CPR from someone nearby. How do you perform Hands-Only CPR? There are two easy steps: Call if you see a teen or adult collapse Push hard and fast in the center of the chest at a beat of 100 beats per minute. Save a life! 4 WAYS TO GET AHEAD OF SEPSIS SEPSIS is a MEDICAL EMERGENCY. Time matters! Infections put you and your family at risk for a life-threatening condition called sepsis. Sepsis is the body's extreme response to an infection. It is life-threatening, and without timely treatment, sepsis can rapidly lead to tissue damage, organ failure, and . Sepsis happens when an infection you already have-in your skin, lungs, urinary tract or somewhere else-triggers a chain reaction throughout your body. 1 PREVENT INFECTIONS Take good care of chronic conditions. Talk to your doctor about getting the recommended vaccines. 2 PRACTICE GOOD HYGIENE Wash your hands frequently. Keep cuts or open sores clean and covered until they are healed. 3 KNOW THE SYMPTOMS Confusion or disorientation Shortness of breath High heart rate Fever, shivering, or feeling very cold Extreme pain or discomfort Clammy or sweaty skin 4 ACT FAST Get medical care IMMEDIATELY if you suspect sepsis or if you have an infection that is not getting better or is getting worse. To learn more about sepsis and how to prevent infections, visit www.cdc.gov/sepsis. Test Results Laboratory or Other Results This Visit (last charted value for your 04/05/2022 visit) No Laboratory or Other Results This Visit Patient Name:CELE LIND I have received this information and was given the opportunity to ask questions. Patient/Lens Fabricating Machine Tender Name: Patient/Lens Fabricating Machine Tender Signature: Relationship to Patient: Clinician/Hospital Lens Fabricating Machine Tender Signature: Date: Electronically signed by Diogo Farrar Conversion Horizontal Boring Mill Operator Cerner at 03/06/2023 7:49 PM CDT documented in this encounter Plan of Treatment Upcoming Encounters Date Type Department Care Team (Late st Contact Info) Description 09/25/2025 11:30 AM EST Office Visit [facility] Gastroenterology [address] [facility] [address] [place] [phone] Carlos Ramirez MD [address] [place] [id number] documented as of this encounter Visit Diagnoses Not on filedocumented in this encounter Care Teams Telemetry Technician Relationship Specialty Start Date End Date Hammad Tiwari MD [address] [place] [address] [place] [id number] PCP - General Adolescent Medicine 03/15/23 documented as of this encounter
--- OUTSIDE RECORDS SUMMARY | 2025-06-11 09:13 | XMS_ITS | Encounter Summary ---
Author Organization [facility] Address [address] [place] [id number] Care Team Providers Care Airflight Attendants Supervisor Name Role Phone Mitra Sargent APRN Primary Care Provid er Encounter Details Date Type Department Care Team (Late Contact Info) Description 03/19/2025 Results Follow-Up [facility] RHEUMATOLOGY [address] [phone] Cecily Hanson APRN [address] [id number] Social History Tobacco Use Types Packs/Day Years [...] on file documented as of this encounter Plan of Treatment Upcoming Encounters Date Type Department Care Team (Late Contact Info) Description 08/20/2025 2:00 PM EDT Office Visit [facility] RHEUMATOLOGY [address] [phone] Cecily Hanson APRN [address] [id number] 11/18/2025 1:30 PM EST Office Visit [facility] RHEUMATOLOGY [address] [phone] David Zarate MD 330 [facility] [address] [place] [address] documented as of this encounter Goals Goal [...] on filedocumented in this encounter Care Teams Airflight Attendants Supervisor Relationship Specialty Start Date End Date Mitra Sargent APRN [address] [facility] [address] [place] [address] PCP - General Family Medicine 06/18/24 documented as of this encounter
--- OUTSIDE RECORDS SUMMARY | 2025-06-11 09:13 | XMS_ITS | Encounter Summary ---
Author Organization [facility] Address [address] [place] [address] Care Team Providers Care Rn Resource Nurse Name Role Phone Rosetta Mitra Radha TRACY Primary Care Provid er Reason for Visit * Reason Onset Date Comments Med Refill 04/22/2025 Encounter Details Date Type Department Care Team (Late st Contact Info) Description 04/22/2025 Refill [facility] RHEUMATOLOGY [address] [phone] David Zarate MD 330 [place] [address] Social History Tobacco Use Types Packs/Day Years [...] on file documented as of this encounter Progress Notes * Ana Laura Smith MA - 05/01/2025 11:48 AM EDTAddended by: ANA LAURA SMITH on: 05/01/2025 11:48 AM Modules accepted: Orders documented in this encounter Miscellaneous Notes * Telephone Encounter - Ana Laura Smith MA - 05/02/2025 1:30 PM EDT Pt called again today. Her labs from 03/19/25 are in the chart. She needs her Actonel send in [facility] as her pharmacy isn't open on the weekends in [place]. - Ana Laura GlennaALLIE Gloria * Telephone Encounter - Ana Laura Smith MA - 05/01/2025 11:47 AM EDT Pt called and said that she had labs done on 03/19/25 and they are in her chart. She would like for us to send in her Actonel rx to [facility] in [place]. - ALLIE Larson * Telephone Encounter - Ana Laura Smith MA - 04/30/2025 11:39 AM EDT Rx denied. Pt needs labs prior to refill. I sent message to pt via [employer] letting her know that weneed labs prior to refilling. -ALLIE Larson * Telephone Encounter - David Zarate MD - 04/29/2025 12:21 PM EDT Please have patient get labs done that MERRILL had ordered. * Telephone Encounter - Asha Simms RN - 04/26/2025 11:45 AM EDT Rx Refill Note Requested Prescriptions Pending Prescriptions Disp Refills risedronate (ACTONEL) 150 MG tablet 3 tablet 1 Sig: with water on empty stomach, nothing by mouth or lie down for next 30 minutes. Last office visit with prescribing clinician: 06/18/2024 Last telemedicine visit with prescribing clinician: Visit date not found Next office visit with prescribing clinician: 11/18/2025 Asha Simms RN 04/26/25, 11:46 EDT documented in this encounter Plan of Treatment Upcoming Encounters Date Type Department Care Team (Late st Contact Info) Description 08/20/2025 2:00 PM EDT Office Visit [facility] RHEUMATOLOGY [address] [phone] Cecily Hanson APRN 330 [facility] [address] [place], [place] [phone] 11/18/2025 1:30 PM EST Office Visit [facility] RHEUMATOLOGY [address] [phone] David Zarate MD [address] [phone] documented as of this encounter Goals Goal [...] on filedocumented in this encounter Care Teams Rn Resource Nurse Relationship Specialty Start Date End Date Mitra Sargent APRN [address] [place] [address] PCP - General Family Medicine 06/18/24 documented as of this encounter
--- OUTSIDE RECORDS SUMMARY | 2025-06-11 09:13 | XMS_ITS | Clinical Summary ---
Author Organization [facility] Address [address] [place] [address] Care Team Providers Care Protective Signal Superintendent Name Role Phone Mitra Sargent APRN Primary Care Provid er Allergies Active Allergy Reactions Criticality Noted Date Comments Latex Provider Review Needed 06/17/2024 Oxycodone Hcl Palpitations Low 06/17/2024 Medications Calcium Carbonate (CALCIUM 500 PO) Take 1 tablet by mouth Daily. CHEWABLE Active Magnesium 250 MG tablet Take 1 tablet by mouth Daily. Active multivitamin (MULTIVITAMIN PO) Take 1 tablet by mouth Daily. MULTI-DAY PLUS MINERALS Active cetirizine (zyrTEC) 10 MG tablet Take 1 tablet by mouth Daily. Active B Complex Vitamins (VITAMIN-B COMPLEX PO) Take 1 tablet by mouth 2 (Two) Times a Day. Active Diclofenac Sodium (Voltaren Arthritis Pain) 1 % gel gel Apply 4 g topically to the appropriate area as directed 4 (Four) Times a Day As Needed. Active Docusate Calcium (STOOL SOFTENER PO) Take 1 tablet by mouth At Night As Needed. Active clobetasol propionate (CLOBEX) 0.05 % shampoo Apply 1 Application topically to the appropriate area as directed. DIRECTED Active Triamcinolone Acetonide 0.025 % lotion Apply topically. DIRECTED Active folic acid (FOLVITE) 1 MG tablet Take 1 tablet by mouth Daily. 1 tablet by oral route every day 90 tablet 3 Active Linzess 145 MCG capsule capsule Take 1 capsule by mouth Every Morning Before Breakfast. 4 Active losartan-hydroc hlorothiazide (HYZAAR) 100-12.5 MG per tablet Take 1 tablet by mouth Daily. 4 Active ondansetron (ZOFRAN) 4 MG tablet Take 1 tablet by mouth Every 12 (Twelve) Hours As Needed. Active fluocinonide (LIDEX) 0.05 % cream APPLY CREAM EXTERNALLY TO AFFECTED AREA TWICE DAILY NEEDED FOR RASH OR IRRITATION 60 g 4 Active Ustekinumab (Stelara) 90 MG/ML solution prefilled syringe Injection Inject 90 mg under the skin into the appropriate area as directed Every 8 (Eight) Weeks. 1 mL 2 05/14/2025 8:44 AM EDT 5 Active methotrexate 2.5 MG tablet Take 5 tablets by mouth 1 (One) Time Per Week. 60 tablet 1 5 Active cyclobenzaprine (FLEXERIL) 5 MG tablet Take 1 tablet by mouth At Night As Needed for Muscle Spasms. 90 tablet 1 5 Active risedronate (ACTONEL) 150 MG tablet Take 1 tablet by mouth once every month with a full glass of water and remain in an upright position for the next 30 minutes 3 tablet 1 5 Active Active Problems Problem Noted Date Diagnosed Date Osteoporosis without current pathological fractu re 09/18/2024 Assessment & Plan (04/16/2025 3:33 PM EDT): Density scan 06/23/2023 showed osteoporosis with lowest T-score being at the femoral neck with a score of -3.2. Spine was -2.3. Continue Actonel started 08/23/2022. Assessment & Plan (12/18/2024 11:36 AM EST): Density scan 06/23/2023 showed osteoporosis with lowest T-score being at the femoral neck with a score of -3.2. Spine was -2.3. Continue Actonel started 08/23/2022. Assessment & Plan (09/18/2024 11:33 AM EDT): Density scan 06/23/2023 showed osteoporosis with lowest T-score being at the femoral neck with a score of -3.2. Spine was -2.3. Continue Actonel started 08/23/2022. Crohn's disease with complication 06/15/2024 Assessment & Plan (04/16/2025 3:33 PM EDT): Following with GI, she is not sure [...] daily Folic acid. Recheck in 3 months. Assessment & Plan (12/18/2024 11:36 AM EST): Following with GI, she is not sure who since Dr. Samson left. - She had a colonoscopy on April 05 showing mildly active disease with a few ulcers in the terminal ileum. Previous Rx: Remicade, Cimzia, Otezla, Humira(4 years) Current Rx: methotrexate 12.5 mg weekly, Stelara (04/2022). She says she is doing well. No symptoms. - Colonoscopy went well -continue Stelara (started 04/2022) - continue follow up with GI - continue methotrexate 12.5 mg weekly (5 tablets) and daily Folic acid. Recheck in 3 months. Assessment & Plan (09/18/2024 11:52 AM EDT): Following with GI, she is not sure who since Dr. Samson left. - She had a colonoscopy on April 05 showing mildly active disease with a few ulcers in the terminal ileum. Previous Rx: Remicade, Cimzia, Otezla, Humira(4 years) Current Rx: methotrexate 12.5 mg weekly, Stelara (04/2022). She says she is doing well. No symptoms. - Colonoscopy went well -continue Stelara (started 04/2022) - continue follow up with GI - continue methotrexate 12.5 mg weekly (5 tablets) and daily Folic acid. Recheck in 3 months. Assessment & Plan (06/18/2024 2:38 PM EDT): Following with GI, she is not sure who since Dr. Samson left. - She had a colonoscopy on April 05 showing mildly active disease with a few ulcers in the terminal ileum. Previous Rx: Remicade, Cimzia, Otezla, Humira(4 years) Current Rx: methotrexate 12.5 mg weekly, Stelara (04/2022). She says she is doing well. No symptoms. Colonoscopy is scheduled. -continue Stelara (started 04/2022) - continue follow up with GI - continue methotrexate 12.5 mg weekly (5 tablets) and daily Folic acid. Recheck in 3 months. Psoriatic arthritis 06/15/2024 Assessment & Plan (04/16/2025 3:33 PM EDT): Her back is hurting more today. She just got back from [place]. She has occasional pain. XR of the SI joints with mild sclerosis which could be inflammatory or degenerative. No other signs of IA currently. Assessment & Plan (12/19/2024 2:02 PM EST): I think her back pain is more related to osteoarthritis than PsA right now, but she does have risk factors for PsA. She walked a lot at [facility] last month. She has occasional pain. XR of the SI joints with mild sclerosis which could be inflammatory or degenerative. No other signs of IA currently. Assessment & Plan (09/17/2024 8:15 AM EDT): I think her back pain is more related to osteoarthritis than PsA right now, but she does have risk factors for PsA. She is not having significant pain currently. XR of the SI joints with mild sclerosis which could be inflammatory or degenerative. No other signs of IA currently. Assessment & Plan (06/18/2024 2:21 PM EDT): I think her back pain is more related to osteoarthritis than PsA right now, but she does have risk factors for PsA. She is not having significant pain currently. XR of the SI joints with mild sclerosis which could be inflammatory or degenerative. No other signs of IA currently. Psoriasis 06/15/2024 Assessment & Plan (04/16/2025 3:33 PM EDT): scalp, ears, nails On Humira for Crohn's, but her psoriasis is breaking through Previous Rx: Remicade, Cimzia, Otezla, Humira (4 years) Current Rx: methotrexate 12.5 mg weekly, Stelara (04/2022). clobetasol shampoo Doing well. - She does develop psoriasis behind her ears. Topical ointments work well for her. - She does continue to have nail changes. Assessment & Plan (12/19/2024 2:06 PM EST): scalp, ears, nails On Humira for Crohn's, but her psoriasis is breaking through Previous Rx: Remicade, Cimzia, Otezla, Humira (4 years) Current Rx: methotrexate 12.5 mg weekly, Stelara (04/2022). clobetasol shampoo Doing well. - She does develop psoriasis behind her ears. Topical ointments work well for her. - She does continue to have nail changes. Assessment & Plan (09/18/2024 11:55 AM EDT): scalp, ears, nails On Humira for Crohn's, but her psoriasis is breaking through Previous Rx: Remicade, Cimzia, Otezla, Humira (4 years) Current Rx: methotrexate 12.5 mg weekly, Stelara (04/2022). clobetasol shampoo Doing well. - She does develop psoriasis behind her ears. Topical ointments work well for her. - She does continue to have nail changes. - She has an prescription for fluocidnonide 0.05 60ml. Will refill. Assessment & Plan (06/18/2024 2:21 PM EDT): scalp, ears, nails On Humira for Crohn's, but her psoriasis is breaking through Previous Rx: Remicade, Cimzia, Otezla, Humira (4 years) Current Rx: methotrexate 12.5 mg weekly, Stelara (04/2022). clobetasol shampoo Doing well. - She does develop psoriasis behind her ears. Topical ointments work well for her. - She does continue to have nail changes. I will check on more affordable options. Chronic fatigue 06/15/2024 Assessment & Plan (04/16/2025 3:33 PM EDT): Update QTB and hepatitis panel Orders: QuantiFERON-TB Gold Plus (Li-Hep); Future Hepatitis Panel, Acute; Future Osteoarthritis of lumbar spine 06/15/2024 Assessment & Plan (04/16/2025 3:33 PM EDT): XR with degenerative arthritis of the lumbar spine continue cyclobenzaprine. 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 Her pain sounds most consistent with OA of the lumbar spine. continue cyclobenzaprine - Her insurance did not cover PT. 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 Her pain sounds most consistent with OA of the lumbar spine. continue cyclobenzaprine - Her insurance did not cover PT. 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 Her pain sounds most consistent with OA of the lumbar spine. continue cyclobenzaprine - Her insurance did not cover PT. - She is feeling better/ - PRN Tylenol - PRN prednisone sparingly - cannot take NSAIDs due to Crohn's Immunosuppression due to drug therapy 06/15/2024 Assessment & Plan (04/16/2025 3:33 PM EDT): Stelara QTB negative 06/04/24 Hepatitis panel negative 08/20/20 No infections in the interim. Orders: C-reactive Protein; Standing Sedimentation Rate; Standing Comprehensive Metabolic Panel; Standing CBC & Differential; Future QuantiFERON-TB Gold Plus (Li-Hep); Future Hepatitis Panel, Acute; Future Assessment & Plan (12/18/2024 11:36 AM EST): Stelara QTB negative 06/04/24 Hepatitis panel negative 08/20/20 No infections in the interim. Assessment & Plan (09/17/2024 8:18 AM EDT): Stelara QTB negative 06/04/24 Hepatitis panel negative 08/20/20 No infections in the interim. Assessment & Plan (06/15/2024 3:54 PM EDT): Richardlara No infections in the interim. High risk medication use 06/15/2024 Assessment & Plan (04/16/2025 3:33 PM EDT): She takes 5 tablets weekly in winter and deceases to 3 tablets weekly in spring. She will need every 6 to 8-week labs. Orders: C-reactive Protein; Standing Sedimentation Rate; Standing Comprehensive Metabolic Panel; Standing CBC & Differential; Future QuantiFERON-TB Gold Plus (Li-Hep); Future Hepatitis Panel, Acute; Future Assessment & Plan (12/19/2024 2:07 PM EST): She takes 5 tablets weekly in winter and deceases to 3 tablets weekly in spring. She will need every 6 to 8-week labs. Assessment & Plan (09/18/2024 12:11 PM EDT): Methotrexate to reduce methotrexate to 3 tablets weekly. However if she feels worse with the lower dose she will increase back to 5 tablets weekly. She will need every 6 to 8-week labs. Assessment & Plan (06/15/2024 3:54 PM EDT): Methotrexate She will need every 6 to 8-week labs. She will need Actonel for osteoporosis prevention. Encounters Date Type Department Care Team Description 05/09/2025 Telephone [facility] [address] [place] [phone] David Zarate MD 04/25/2025 Telephone [facility] [address] [place] [phone] Cecily Hanson APRN Prior Authorization ([place] Izaguirre: [id number]- Cyclobenzaprine HCl 5MG tablets) 04/22/2025 Refill [facility] [address] [place] [phone] David Zarate MD 04/16/2025 3:00 PM EDT Office Visit [facility] [address] [place] [phone] Cecily Hanson APRN Psoriatic arthritis (Primary Dx); Psoriasis; Osteoarthritis of lumbar spine, unspecified spinal osteoarthritis complication status; Crohn's disease with complication, unspecified gastrointestinal tract location; Osteoporosis without current pathological fracture, unspecified osteoporosis type; High risk medication use; Immunosuppression due to drug therapy; Chronic fatigue 04/16/2025 Travel 03/19/2025 Results Follow-Up [facility] [address] [place] [phone] Cecily Hanson APRN from Last 3 Months Immunizations Immunization Administration Dates Next Due COVID-19 (UNSPECIFIED) 11/21/2020 Influenza, Unspecified 08/21/2001 Family History Medical History Relation Name Comments Heart failure Brother Basal cell carcinoma Father Hypertension Mother Alcohol abuse Other FM HX Hypertension Other FM HX Relation Name Status Comments Brother Father Mother Other FM HX Social History Tobacco Use Types Packs/Day Years [...] on file Sexual Orientation Not on file Last Filed Vital Signs Vital Sign Reading [...] Mass Index 27.28 04/16/2025 2:56 PM EDT Plan of Treatment Upcoming Encounters Date Type Department Care Team (Late st Contact Info) Description 08/20/2025 2:00 PM EDT Office Visit [facility] [address] [phone] Cecily Hanson APRN [address] [address] 11/18/2025 1:30 PM EST Office Visit [facility] [address] [phone] David Zarate MD [address] [phone] Health Maintenance Due Date Last Done Comments TDAP/TD VACCINES (1 - Tdap) 1977 ZOSTER VACCINE (1 of 2) 1977 MAMMOGRAM 1998 COLOGUARD 2003 COLON CANCER SCREENING 5 YEA R SIGMOIDOSCOPY 2003 CT COLONOGRAPHY 2003 FECAL OCCULT BLOOD TEST 2003 FIT Testing (1 year) 2003 ANNUAL WELLNESS VISIT 04/02/2024 HEPATITIS C SCREENING 04/02/2024 COVID-19 Vaccine (8 - Mixed Product risk season) 2025 07/27/2024, 11/17/2023, 08/18/2022, Additional history exists INFLUENZA VACCINE 08/21/2025 07/27/2024, , 08/29/2021, Additional history exists DXA SCAN 06/17/2026 06/17/2024 COLONOSCOPY 06/26/2034 06/26/2024, 04/05/2022 COLORECTAL CANCER SCREENING 06/26/2034 Pneumococcal Vaccine 50+ Completed 06/12/2024 Goals Goal Patient Goal Type Associated Problems Recent Progress Patient-Stated? Author Specialty Pharmacy General Goal General On track( 025 8:30 AM EST) No Fritz Pack, PharmD Note: Reduce number of flares and pain score. 2..25: Patient has had great reduction of pain in joints as well as remission of crohns Procedures Procedure Name Priority Date/Time Associated Diagnosis Comments SCANNED - LABS 03/19/2025 SCANNED - DEXA Routine 06/17/2024 2:34 PM EDT from Last 3 Months or Most Recently Relevant to Health Maintenance Results * LABS SCANNED (03/19/2025) Cecily Hanson APRN LAB BLOOD ORDERABLES F inal Result * DEXA Scan (06/17/2024 2:34 PM EDT) Anatomical Region Laterality Modality Other Historical Provider CHART REVIEW TABS Steph l Result from Last 3 Months or Most Recently Relevant to Health Maintenance Insurance [facility] SUPP MEDICARE A & B Care Teams Protective Signal Superintendent Relationship Specialty Start Date End Date Mitra Sargent APRN [address] [facility] [address] [place] [id number] PCP - General Family Medicine 06/18/24
--- OUTSIDE RECORDS SUMMARY | 2025-06-11 09:13 | XMS_ITS ---
Author Organization [facility] Address [address] [place] [address] Care Team Providers Care Starter Cup Powder Mixer Name Role Phone Mitra Sargent APRN Primary Care Provid er Rheumatology Status:Enrolled (Active) Start date:06/18/2024 Enrollment date:06/27/2024 Enrollment reason:New start at Current support & services provided:Clinical Assessment, Refill Coordination , Benefits Investigation, [facility] Linked medications:Ustekinumab (Active) Linked problems:Psoriatic arthritis (Active) Continued Care and Services Coordination
--- OUTSIDE RECORDS SUMMARY | 2025-06-11 09:13 | XMS_ITS | Encounter Summary ---
Author Organization [facility] Address [address] [place] [id number] Care Team Providers Care Cod Clerk Name Role Phone Rosetta Mitra Radha TRACY Primary Care Provid er Encounter Details Date Type Department Care Team (Latest Contact Info) Description 04/16/2025 Travel Social History Tobacco Use Types Packs/Day Years [...] Description 08/20/2025 2:00 PM EDT Office Visit [facility]HEUM[facility]OLOGY [address] [phone] Cecily Hanson APRN [address] [address] 11/18/2025 1:30 PM EST Office Visit [facility] [address] [phone] David Zarate MD [address] [address] documented as of this encounter Goals Goal Patient Goal Type Associated Problems Recent Progress Patient-Stated? Author Specialty Pharmacy General Goal General On track( 025 8:30 AM EST) Fritz Douglass, PharmD Note: Reduce number of flares and pain score. 2..25: Patient has had great reduction of pain in joints as well as remission of crohns documented as of this encounter Visit Diagnoses Not on filedocumented in this encounter Care Teams Cod Clerk Relationship Specialty Start Date End Date Mitra Sargent APRN [address] [place] [address] PCP - General Family Medicine 06/18/24 documented as of this encounter
--- OUTSIDE RECORDS SUMMARY | 2025-06-11 09:13 | XMS_ITS | Encounter Summary ---
Author Organization [facility] Address [address] [place] [address] Care Team Providers Care Sky Diver Name Role Phone Mitra Sargent APRN Primary Care Provid er Reason for Visit * Reason Onset Date Comments Prior Authorization 04/25/2025 JONATHAN Izaguirre: [id number]- Cyclobenzaprine HCl 5MG tablets Encounter Details Date Type Department Care Team (Late st Contact Info) Description 04/25/2025 Telephone [facility] [address] [phone] Cecily Hanson APRN [address] [address] Prior Authorization (JONATHAN Izaguirre: [id number]- Cyclobenzaprine HCl 5MG tablets) Social History Tobacco Use Types Packs/Day Years [...] as of this encounter Miscellaneous Notes * Telephone Encounter - Yudi Tello MA - 04/25/2025 3:05 PM EDT PA Approved * Telephone Encounter - Yudi Tello MA - 04/25/2025 2:51 PM EDT JONATHAN Izaguirre: [id number]- Cyclobenzaprine HCl 5MG tablets documented in this encounter Plan of Treatment Upcoming Encounters Date Type Department Care Team (Late st Contact Info) Description 08/20/2025 2:00 PM EDT Office Visit [facility] [address] [phone] Cecily Hanson APRN [address] [address] 11/18/2025 1:30 PM EST Office Visit [facility] [address] [phone] David Zarate MD [address] [phone] documented as of this encounter Goals Goal [...] on filedocumented in this encounter Care Teams Sky Diver Relationship Specialty Start Date End Date Mitra Sargent APRN [address] [facility] [address] [place] [id number] PCP - General Family Medicine 06/18/24 documented as of this encounter
--- OUTSIDE RECORDS SUMMARY | 2025-06-11 09:13 | XMS_ITS | Encounter Summary ---
Author Organization [employer] ([place], [place], [place], [place]) Address [address] [place] [address] Care Team Providers Care Global Human Resources Director Name Role Phone Hammad Tiwari MD Primary Care Provider [phone] Encounter Details Date Type Department Care Team (Late st Contact Info) Description 04/05/[address] [facility] Family Medicine [address] [place] [address] ProviderMichelle MD [address] [place] [address] Social History Tobacco Use Types Packs/Day Years Used Date Smoking Tobacco: Never Assessed Family and Community Support Answer Billy e Recorded Help with Day to Day Activities Not on file 12/09/2023 Feeling Lonely or Isolated Not on file 12/09 Educational Attainment Answer Date Elton rded Speak language other than Guinean at home Not on file 12/09/2023 Want [...] Conversion Note - Historical ProviderMD - 04/05/2022 10:50 AM CDT Patient Education Materials Follows: Hemorrhoids Hemorrhoids are swollen veins that may [...] 20 minutes to ease pain. Do this 3?4 times a day. You may do this [...] Leave the ice on for 20 minutes, 2?3 times a day. General instructions ??? Take sibi-cyl-vzlfkib and prescription medicines only as told by [...] 20 minutes to ease pain. Do this 3?4 times a day. This information is not intended to replace advice given to you by your health care provider. Make sure you discuss any questions you have with your health care provider. Document Revised: 11/15/2019 Document Reviewed: 03/29/2019 [employer] Patient Education ? 2020 [employer]. Diverticulosis Diverticulosis is a condition that develops [...] getting enough exercise. ??? Smoking. ??? Taking vwwy-irs-pzuwcam pain medicines, like aspirin and ibuprofen. ??? [...] these instructions at home: Medicines ??? Take ovkz-slv-uukhmen and prescription medicines only as told by your health care provider. ??? If told by your health care provider, take a fiber supplement or probiotic. Constipation prevention Your condition may cause constipation. To prevent or treat constipation, you may need to: ??? Drink enough fluid to keep your urine pale yellow. ??? Take syrp-nvm-quwwnbj or prescription medicines. ??? Eat foods that [...] provider. Document Revised: 06/05/2020 Document Reviewed: 06/05/2020 [employer] Patient Education ? 2020 [employer]. Oncology Colon Polyps Colon polyps are tissue growths [...] ? Camejo syndrome. ? Turcot syndrome. ? Peutz?Jeghers syndrome. ? MUTYH-associated polyposis (MAP). ??? Being [...] Limit how much you use to: ? 0?1 drink a day for women. ? 0?2 drinks a day for men. ? Know how much alcohol is in your drink. In the [place] one drink equals one 12 oz bottle of beer (355 mL), one 5 oz glass of wine (148 mL), or one 1? oz glass of hard liquor (44 mL). General instructions ??? Take sfpr-xio-gqqrfal and prescription medicines only as told by [...] provider. Document Revised: 02/25/2021 Document Reviewed: 02/25/2021 [employer] Patient Education ? 2020 [employer] Pharmacology Monitored Anesthesia Care, Care After This sheet [...] you are awake and alert. ??? Take uzzj-reo-wdovtyt and prescription medicines only as told by [...] provider. Document Revised: 07/23/2021 Document Reviewed: 10/09/2020 [employer] Patient Education ? 2020 [employer] Radiology Colonoscopy, Adult, Care After This sheet gives [...] Get up to take short walks every 1?2 hours. This is important. Ask for help [...] source. ? Leave the heat on for 20?30 minutes. ? Remove the heat if your [...] soft and easy to digest. ??? Take yxrk-rdh-qybeyaj or prescription medicines only as told by your doctor. ??? Keep all follow-up visits as told by your doctor. This is important. Contact a doctor if: ??? You have blood in your poop 2?3 days after the procedure. Get help right [...] provider. Document Revised: 09/12/2020 Document Reviewed: 06/02/2020 [employer] Patient Education ? 2020 [employer]. Electronically signed by Gabby Farrar Conversion Clinical Laboratory Technologist Cerner at 03/06/2023 7:27 PM CDT documented in this encounter Plan of Treatment Upcoming Encounters Date Type Department Care Team (Late st Contact Info) Description 09/25/2025 11:30 AM EST Office Visit [facility] [address] [place] [facility] [address] [place] [phone] Carlos Ramirez MD [address] [place] [address] documented as of this encounter Visit Diagnoses Not on filedocumented in this encounter Care Teams Global Human Resources Director Relationship Specialty Start Date End Date Hammad Tiwari MD [address] [place] [address] [place] [address] PCP - General Adolescent Medicine 03/15/23 documented as of this encounter
--- OUTSIDE RECORDS SUMMARY | 2025-06-11 09:13 | XMS_ITS | Encounter Summary ---
[facility] Address [address] [place] [address] Care Team Providers Care Sleeve Turner Name Role Phone Rosetta Mitra Radha TRACY Primary Care Provid er Encounter Details Date Type Department Care Team (Late st Contact Info) Description 05/09/2025 Telephone [facility] RHE[facility]OLOGY [address] [address] David Zarate MD [address] [address] Social History Tobacco Use Types Packs/Day Years [...] encounter Miscellaneous Notes * Telephone Encounter - Manjinder Alejandre MA - 05/09/2025 1:33 PM EDT Received PA request for risedronate, CMM brownlee [id number]. Submitted, then received message that prior authorization was not required. Last rx was sent with incomplete instructions so I am going to resend a corrected rx in case that caused an issue. HUB OK TO RELAY documented in this encounter Plan of Treatment Upcoming Encounters Date Type Department Care Team (Late st Contact Info) Description 08/20/2025 2:00 PM EDT Office Visit [facility] RHEUMATOLOGY [address] [address] Cecily Hanson APRN 330 [facility] [address] [place], [place] [address] 11/18/2025 1:30 PM EST Office Visit [facility] RHEUMATOLOGY [address] [address] David Zarate MD [address] [id number] documented as of this encounter Goals Goal [...] on filedocumented in this encounter Care Teams Sleeve Turner Relationship Specialty Start Date End Date Mitra Sargent APRN [address] [facility] [address] [place] [address] PCP - General Family Medicine 06/18/24 documented as of this encounter
--- OUTSIDE RECORDS SUMMARY | 2025-06-11 09:14 | XMS_ITS | Encounter Summary ---
Author Organization [employer] ([place], [place], [place], [place]) Address [address] [place] [address] Care Team Providers Care Mysql Database Developer Name Role Phone Hammad Tiwari MD Primary Care Provider [phone] Encounter Details Date Type Department Care Team (Late st Contact Info) Description 04/05/2022 Transcribed Document [facility] [address] [place] [address] ProviderMichelle MD [address] [place] [address] Social History Tobacco Use Types Packs/Day Years Used Date Smoking Tobacco: Never Assessed Family and Community Support Answer Billy e Recorded Help with Day to Day Activities Not on file 12/09/2023 Feeling Lonely or Isolated Not on file 12/09 Educational Attainment Answer Date Elton rded Speak language other than Serbian at home Not on file 12/09/2023 Want [...] Conversion Note - Historical ProviderMD - 04/05/2022 11:03 AM CDT [address], [place] [id number] CELE LIND :1960 Visit Time:04/05/2022 What to [...] with pathology results in 7-10 days. Where: [address] [place] [address] [address] [place] [id number]- Medications What How Much When Instructions Next [...] you are awake and alert. ??? Take zedk-tef-dkmvzzw and prescription medicines only as told by [...] Reviewed: 10/09/2020 Elsevier Patient Education ?? 2020 [employer] Hemorrhoids Hemorrhoids are swollen veins that [...] times a day. General instructions ??? Take rsbr-sfp-meopkaw and prescription medicines only as told by [...] provider. Document Revised: 11/15/2019 Document Reviewed: 03/29/2019 [employer] Patient Education ?? 2020 [employer]. Diverticulosis Diverticulosis is a condition that develops [...] getting enough exercise. ??? Smoking. ??? Taking ntpx-srp-qjrwrur pain medicines, like aspirin and ibuprofen. ??? [...] these instructions at home: Medicines ??? Take zmdl-jlf-hzfkinf and prescription medicines only as told by your health care provider. ??? If told by your health care provider, take a fiber supplement or probiotic. Constipation prevention Your condition may cause constipation. To prevent or treat constipation, you may need to: ??? Drink enough fluid to keep your urine pale yellow. ??? Take xccp-yaf-ecajqra or prescription medicines. ??? Eat foods that [...] provider. Document Revised: 06/05/2020 Document Reviewed: 06/05/2020 [employer] Patient Education ?? 2020 [employer]. Colonoscopy, Adult, Care After This sheet gives [...] soft and easy to digest. ??? Take bleh-pkz-qeevgfo or prescription medicines only as told by [...] provider. Document Revised: 09/12/2020 Document Reviewed: 06/02/2020 [employer] Patient Education ?? 2020 [employer]. Colon Polyps Colon polyps are tissue growths [...] liquor (44 mL). General instructions ??? Take ypty-isa-fgspduy and prescription medicines only as told by [...] provider. Document Revised: 02/25/2021 Document Reviewed: 02/25/2021 [employer] Patient Education ?? 2020 [employer] Emergency Awareness and Preventative Care STROKE [...] Assistance with quitting is available by contacting 7-132-IEZPNOW. This is a free resource providing counseling, support, and referral. Or you may contact your personal physician. [place] Suicide Prevention Lifeline: The National Suicide Prevention [...] was given the opportunity to ask questions. Patient/Medical Editor Name: Patient/Medical Editor Signature: Relationship to Patient: Clinician/Hospital Medical Editor Signature: Date: Electronically signed by Gabby Farrar Conversion Net Application Support Specialist Cerner at 03/06/2023 7:37 PM CDT documented in this encounter Plan of Treatment Upcoming Encounters Date Type Department Care Team (Late st Contact Info) Description 09/25/2025 11:30 AM EST Office Visit [facility] Gastroenterology [address] [facility] [address] [place] [id number] Carlos Ramirez MD [address] [place] [id number] documented as of this encounter Visit Diagnoses Not on filedocumented in this encounter Care Teams Mysql Database Developer Relationship Specialty Start Date End Date Hammad Tiwari MD [address] [place] [address] [place] [id number] PCP - General Adolescent Medicine 03/15/23 documented as of this encounter
--- OUTSIDE RECORDS SUMMARY | 2025-06-11 09:14 | XMS_ITS | Clinical Summary ---
Author Organization [employer] ([place], [place], [place], [place]) Address [address] [place] [address] Care Team Providers Care Drum Builder Name Role Phone Hammad Tiwari MD Primary Care Provider [phone] Allergies Active Allergy Reactions Criticality Noted Date Comments Latex Swelling High 02/23/2019 Oxycodone Palpitations Low 02/23/2019 Oxycodone (Bulk) 03/15/2023 Other reaction(s): fast heart rate Medications cyclobenzaprine (FLEXERIL) 5 MG tablet Take 1-2 tablets (5-10 mg total) by mouth nightly. 08/23/20 22 Active losartan-hydroch lorothiazide (HYZAAR) 100-12.5 mg per tablet Take 1 tablet by mouth daily. 11/12/20 22 Active methotrexate 2.5 MG tablet Take 8 tablets (20 mg total) by mouth once a week. 11/05/20 22 Active risedronate (ACTONEL) 150 MG tablet Take 1 tablet (150 mg total) by mouth. 10/27/20 22 Active clobetasoL (CLOBEX) 0.05 % shampoo daily. 02/04/20 23 Active folic acid (FOLVITE) 1 MG tablet Take 1 tablet (1,000 mcg total) by mouth daily. 03/15/20 23 Active calcium carbonate-vitami n D3 600 mg-5 mcg (200 unit) per tablet Take 1 tablet by mouth daily. Active Missing or Non-Formulary Medication Prevagen 100 mg. Ac tive multivitamin per tablet Take 1 tablet by mouth daily. Active ondansetron (ZOFRAN) 4 MG tablet Take 1 tablet (4 mg total) by mouth 2 (two) times daily as needed for nausea. Active tirzepatide 2.5 mg/0.1 mL syrg Inject 0.1 mLs under the skin once a week. Active Stelara 90 mg/mL SyrgIndications: Crohn's disease of small intestine without complication (HCC) Inject 1 mL (90 mg total) subcutaneously once every 8 weeks. 1 mL 3 06/26/20 24 Active linaCLOtide (Linzess) 145 mcg capIndications:C hronic idiopathic constipation Take 1 capsule (145 mcg total) by mouth daily for 360 days. 90 capsule 3 03/27/20 25 026 Active Active Problems Problem Noted Date Diagnosed Date Osteoporosis 09/18/2024 Overview (09/26/2024): Last Assessment & Plan: Density scan 06/23/2023 showed osteoporosis with lowest T-score being at the femoral neck with a score of -3.2. Spine was -2.3. Continue Actonel started 08/23/2022. 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 Her pain sounds most consistent with OA of the lumbar spine. continue cyclobenzaprine - Her insurance did not cover PT. - She is feeling better - PRN Tylenol - PRN prednisone sparingly - cannot take NSAIDs due to Crohn's Psoriasis 06/15/2024 Overview (09/26/2024): Last Assessment & Plan: scalp, ears, nails On Humira for Crohn's, [...] prescription for fluocidnonide 0.05 60ml. Will refill. Chronic idiopathic constipation 08/05/2021 Crohn's disease 07/21/2021 Fatigue 07/02/2020 Allergic rhinitis 04/17/2020 Psoriatic arthritis 06/23/2019 Overview (09/26/2024): Last Assessment & Plan: I think her back pain is more related to osteoarthritis than PsA right now, but she does have risk factors for PsA. She is not having significant pain currently. XR of the SI joints with mild sclerosis which could be inflammatory or degenerative. No other signs of IA currently. Encounters Date Type Department Care Team Description 04/10/2025 Orders Only [facility] Gastroenterology [address] [facility] [address] [place] [address] ProviderMichelle MD 03/27/2025 1:45 PM EDT Office Visit [facility] Gastroenterology [address] [facility] [address] [place] [address] Carlos Ramirez MD Crohn's disease of both small and large intestine without complication (HCC) (Primary Dx); Chronic idiopathic constipation 03/27/2025 Travel from Last 3 Months Immunizations Name Administration Dates Next Due Covid 19 Vaccine, Unspecified 11/21/2020 Covid-19 Vaccine MRNA (PF) 18yr+ (Moderna)(IMM60 [id number]) 11/21/2020 Influenza Four-QIV PF 3+YR IM 08/16/2017 Influenza Four-qiv Pf 08/06/2020 Influenza Three-tiv Non-pf 08/29/2021 Influenza, Split 08/21/2021 Influenza, Unspecified Pf 08/21/2001 Family History Medical History Relation Name Comments Colon cancer Maternal Grandfather Na Cholelithiasis Mother On record Colon polyps Mother On record Breast cancer Paternal Aunt NA Relation Name Status Comments Maternal Grandfather Na Mother On record Paternal Aunt NA Social History Tobacco Use Types Packs/Day Years Used Date Smoking Tobacco: Never Passive Smoke Exposure: Never Smokeless Tobacco: Never Tobacco Cessation:Counseling Given: Not Answered Alcohol Use Standard Drinks/Week Comments Never 0 (1 standard drink = 0.6 oz pur e alcohol) Family and Community Support Answer Billy e Recorded Help with Day to Day Activities Not on file 12/09/2023 Feeling Lonely or Isolated Not on file 12/09 Educational Attainment Answer Date Elton rded Speak language other than Thai at home Not on file 12/09/2023 Want help with school or training Not on file 12/09/2023 Substance Use Answer Date Recorded Used prescription meds for non-medical reasons N ot on file 12/09/2023 Used illegal drugs past 12 months Not on file 12/09/2023 Comments No Sex and Gender Information Value Date Recorded Sex Assigned at Not on file Legal Sex Female 1:09 PM CDT Gender Identity Not on file Sexual Orientation Not on file Last Filed Vital Signs Vital Sign Reading Time Taken Comments Blood Pressure 116/70 03/27/2025 1:33 PM EDT Pulse 79 03/27/2025 1:33 PM EDT Temperature 36.7 C (98 F) 03/27/2025 1:33 PM EDT Respiratory Rate 20 06/26/2024 10:0 1 AM EDT Oxygen Saturation 97% 03/27/2025 1:33 PM EDT Inhaled Oxygen Concentration - - Weight 67.9 kg (149 lb 12.8 oz) 03/27/2025 1:33 PM EDT Height 154.9 cm (5' 1 ) 03/27/2025 1:33 PM EDT Body Mass Index 28.3 03/27/2025 1:33 PM EDT Plan of Treatment Upcoming Encounters Date Type Department Care Team (Late st Contact Info) Description 09/25/2025 11:30 AM EST Office Visit [facility] Gastroenterology [address] [place] [address] Carlos Ramirez MD [address] [place] [address] Health Maintenance Due Date Last Done Comments CT Colonography 1960 DXA SCAN 1960 FOBT/FIT 1960 Fit-DNA (Cologuard) 1960 Sigmoidoscopy 1960 Depression Screening (12+) 1970 Hepatitis C Screening 1976 DTAP/TDAP/TD VACCINES (1 - Tdap) 1977 Pneumococcal 50+ years (1 of 2 - PCV) 1977 Shingles Vaccine (Zoster) (1 of 2) 1977 Breast Cancer Screening 1998 Respiratory Syncytial Virus (RSV) Adult or (1 - Risk 60-74 years 1-dose series) 2018 Medicare Initial AWV G0438 03/22/2024 COVID-19 VACCINE (7 2023-2 5 season) 2024 08/18/2022, 08/18/2022, 09/19/2021, Additional history exists Falls Risk Screening 11/21/2024 Influenza Vaccine (#1) 2025 08/21/2021, 2016 Tobacco Cessation Counseling and Screening (12+) 03/27/2026 03/27/2025 Colonoscopy 06/26/2034 06/26/2024, 04/05/2022 Colorectal Cancer Screening 06/26/2034 Procedures Procedure Name Priority Date/Time Associated Diagnosis Comments EXTERNAL LAB - MISC Routine 03/19/2025 9:46 AM EDT COLONOSCOPY Routine 04/05/2022 from Last 3 Months or Most Recently Relevant to Health Maintenance Results * EXTERNAL LAB - MISC (03/19/2025 9:46 AM EDT) Historical Provider LAB BLOOD ORDERABLES Steph l Result * COLONOSCOPY (04/05/2022) Frances Samson MD HEALTH MAINTENANCE Final Resul t from Last 3 Months or Most Recently Relevant to Health Maintenance Insurance MEDICARE PART A B SUPP Care Teams Drum Builder Relationship Specialty Start Date End Date Hammad Tiwari MD [address] [place] [address] [place] [id number] PCP - General Adolescent Medicine 03/15/23
--- OUTSIDE RECORDS SUMMARY | 2025-06-11 09:14 | XMS_ITS | Referral Summary ---
Author Organization [employer] ([place], [place], [place], [place]) Address [address] [place] [address] Care Team Providers Care Licensed Massage Therapist Name Role Phone Hammad Tiwari MD Primary Care Provider [phone] Encounters Date Type Department Care Team Description 04/10/2025 Orders Only [facility] Gastroenterology [address] [place] [address] ProviderMichelle MD 03/27/2025 Travel 03/27/2025 1:45 PM EDT Office Visit [facility] Gastroenterology [address] [facility] [place] [address] Carlos Ramirez MD Crohn's disease of both small and large intestine without complication (HCC) (Primary Dx); Chronic idiopathic constipation from Last 3 Months Allergies Active Allergy Reactions Criticality Noted Date Comments Latex Swelling High 02/23/2019 Oxycodone Palpitations Low 02/23/2019 Oxycodone (Bulk) 03/15/2023 Other reaction(s): fast heart rate Medications cyclobenzaprine (FLEXERIL) 5 MG tablet Take 1-2 tablets (5-10 mg total) by mouth nightly. 08/23/20 Active losartan-hydroch lorothiazide (HYZAAR) 100-12.5 mg per tablet Take 1 tablet by mouth daily. 11/12/20 Active methotrexate 2.5 MG tablet Take 8 tablets (20 mg total) by mouth once a week. 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 Her pain [...] degenerative. No other signs of IA currently. Immunizations Name Administration Dates Next Due Covid 19 Vaccine, Unspecified 11/21/2020 Covid-19 Vaccine MRNA (PF) 18yr+ (Moderna)(IMM60 0) 11/21/2020 Influenza Four-QIV PF 3+YR IM 08/16/2017 Influenza Four-qiv Pf 08/06/2020 Influenza Three-tiv Non-pf 08/29/2021 Influenza, Split 08/21/2021 Influenza, Unspecified Pf 08/21/2001 Social History Tobacco Use Types Packs/Day Years [...] Description 09/25/2025 11:30 AM EST Office Visit [facility] Gastroenterology [address] [facility] [address] [place] [address] Carlos Ramirez MD [address] [place] [address] Procedures Procedure Name Priority Date/Time Associated Diagnosis Comments EXTERNAL LAB - MISC Routine 03/19/2025 9:46 AM EDT HM COLONOSCOPY Routine 04/05/2022 from Last 3 Months or Most Recently Relevant to Health Maintenance Results * EXTERNAL LAB - MISC (03/19/2025 9:46 AM EDT) us Historical Provider LAB BLOOD ORDERABLES Steph metzger Result * HM COLONOSCOPY (04/05/2022) Frances Samson MD HEALTH MAINTENANCE Final Resul t from Last 3 Months or Most Recently Relevant to Health Maintenance Insurance MEDICARE PART A B Care Teams Licensed Massage Therapist Relationship Specialty Start Date End Date Hammad Tiwari MD [address] [place] [id number] PCP - General Adolescent Medicine 03/15/23
--- OUTSIDE RECORDS SUMMARY | 2025-06-11 09:14 | XMS_ITS | Encounter Summary ---
Author Organization [employer] ([place], [place], [place], [place]) Address [address] [place] [address] Care Team Providers Care Twist Maker Name Role Phone Hmamad Tiwari MD Primary Care Provider [phone] Encounter Details Date Type Department Care Team (Late st Contact Info) Description 04/05/2022 Transcribed Document [facility] [place] Family Medicine [address] [place] [address] ProviderMichelle MD [address] [place] [address] Social History Tobacco Use Types Packs/Day Years Used Date Smoking Tobacco: Never Assessed Family and Community Support Answer Billy e Recorded Help with Day to Day Activities Not on file 12/09/2023 Feeling Lonely or Isolated Not on file 12/09 Educational Attainment Answer Date Elton rded Speak language other than Mongolian at home Not on file 12/09/2023 Want [...] Conversion Note - Historical ProviderMD - 04/05/2022 10:32 AM CDT [facility] IntraOp Summary Primary Physician: KEMAR FELDER MD-GAE Finalized Date/Time: 04/05/22 15:42:41 Pt. Name: CELE LIND Eduardo Cee./Sex: 1960 Female [facility] Rec #: [id number] Physician: KEMAR FELDER MD-GAE Financial #: [id number] Pt. Type: Room/Bed: [facility] Admit/Disch: 04/05/22 09:17:00 - Institution: [facility] Endo - Case Attendance Entry 1 Entry 2 Entry 3 Case Attendee KEMAR FELDER MD-GAE Zimmer, Courtney, Edmundson, Stephanie, RN MGR-NURSING Role Performed Surgeon/Proceduralist, Resource Efficiency Manager, First Resource Efficiency Manager, Second First Time In 04/05/22 10:26:00 04/05/22 10:26:00 04/05/22 10:26:00 Time Out 04/05/22 10:54:00 04/05/22 10:54:00 04/05/22 10:54:00 Procedure Colonoscopy, Colon Colonoscopy, Colon Colonoscopy, Colon Biopsy Biopsy Biopsy Other Attendee Superficial Wound Closed By: Last Modified By: Mara Shannon Zimmer, Courtney, Zimmer, Courtney, MGR-NURSING 04/05/22 MGR-NURSING 04/05/22 MGR-NURSING 04/05/22 10:53:08 10:53:08 10:53:08 Entry 4 Entry 5 Entry 6 Case Attendee MELANIE MEHTA Reed, Rashell, ROTH, GAVIN, MD-ANS ENERGY CONSULTANT [employer] Role Performed ENERGY CONSULTANT/Nurse Accountant Tax Scrub, First Anesthesiologist of Record Time In 04/05/22 10:26:00 04/05/22 10:26:00 04/05/22 10:26:00 Time Out 04/05/22 10:54:00 04/05/22 10:54:00 04/05/22 10:54:00 Procedure Colonoscopy, Colon Colonoscopy, Colon Colonoscopy, Colon Biopsy Biopsy Biopsy Other Attendee Superficial Wound Closed By: Last Modified By: Mara Shannon Zimmer, Courtney, Zimmer, Courtney, MGR-NURSING 04/05/22 MGR-NURSING 04/05/22 MGR-NURSING 04/05/22 10:53:08 10:53:08 10:53:08 [facility] - Case Attendance Audit 04/05/22 10:53:08 Horse Racing Manager: [id number] Modifier: [id number] <+> Time Out 1 <*> Procedure Colonoscopy, Colon Biopsy 2 <+> Time Out 2 <*> Procedure Colonoscopy, Colon Biopsy 3 <+> Time Out 3 <*> Procedure Colonoscopy, Colon Biopsy 4 <+> Time Out 4 <*> Procedure Colonoscopy, Colon Biopsy 5 <+> Time Out 5 <*> Procedure Colonoscopy, Colon Biopsy 6 <+> Time Out 6 <*> Procedure Colonoscopy, Colon Biopsy 04/05/22 10:43:28 Horse Racing Manager: [id number] Modifier: [id number] 1 <*> Procedure Colonoscopy 2 <*> Procedure Colonoscopy 3 <*> Procedure Colonoscopy 4 <*> Procedure Colonoscopy 5 <*> Procedure Colonoscopy 6 <*> Procedure Colonoscopy 04/05/22 10:30:52 Horse Racing Manager: [id number] Modifier: [id number] <+> 1 Procedure 2 <*> Procedure Colonoscopy 3 <+> Time In 3 <*> Procedure Colonoscopy 4 <+> Time In 4 <*> Procedure Colonoscopy 5 <+> Time In 5 <*> Procedure Colonoscopy 6 <+> Time In 6 <*> Procedure Colonoscopy [facility] - Case Times Entry 1 Patient In Room Time 04/05/22 10:26:00 Out Room Time 04/05/22 10:54:00 Anesthesia Start Time 04/05/22 10:29:00 Stop Time 04/05/22 10:52:00 Anesthesia Ready 04/05/22 10:26:00 Surgery / Procedure Times Start Time 04/05/22 10:32:00 Stop Time 04/05/22 10:52:00 Last Modified By: Mara Shannon, MGR-NURSING 04/05/22 10:53:07 [facility] - Case Times Audit 04/05/22 10:53:07 Horse Racing Manager: [id number] Modifier: [id number] <+> 1 Out Room Time <+> 1 Stop Time <+> 1 Stop Time 04/05/22 10:32:28 Horse Racing Manager: [id number] Modifier: [id number] <+> 1 Start Time 04/05/22 10:30:06 Horse Racing Manager: [id number] Modifier: [id number] <+> 1 Start Time [facility] - Cultures and Spec Summary Entry 1 Cultrures and Specimens Specimen Ordered: Yes Test(s) Routine/Path-Lab Requested/Final Disposition Last Modified By: Mara Shannon MGR-NURSING 04/05/22 10:46:02 [facility] - Departure from OR Entry 1 Integumentary Assessment Integumentary WDL Assessment WDL Transfer/Handoff Transfer to PACU Phase I Post-op Transport Stretcher/Gurluis Via Patient Transport MELANIE MEHTA, Accompanied by MADI, Mara Shannon, MGR-NURSING, Mary Kya Pizano, MARIAJOSE Last Modified By: Mara Shannon MGR-NURSING 04/05/22 10:30:25 [facility] - Endoscopy Details Entry 1 Abdomen Procedure Soft, Non-Tender Assessment Procedure Abdomen 04/05/22 10:26:00 Assessment D/T Radio Frequency Ablation Abdominal Pressure Last Modified By: Mara Shannon MGR-NURSING 04/05/22 10:30:48 E Endo - Fire Risk Assessment Entry 1 Fire Info Surgical Site or 0- No Incision Above the Xyphoid Open O2 Source 1- Yes (Mask or Cannula) Available Ignition 1- Yes (ESU, Laser, Light Source) Fire Risk 2 Assessment Score Fire Score Fire Risk Yes Assessment Complete Fire Risk Mara Shannon, Assessment Verified MGR-NURSING By Fire Risk 04/05/22 10:26:00 Assessment Verified Date/Time Fire Risk High Risk Protocol Yes Implemented Standard Fire Yes Safety Precautions Followed Last Modified By: Mara Shannon MGR-NURSING 04/05/22 10:31:03 E Endo - General Case Diabetic Educator 1 Case Information OR Endo 01 [facility] Case Level 1 Room Verified Yes Wound Class 2 - Clean-Contaminated Specialty Gastroenterology Anesthesia Type MAC ASA Class 3 Diagnosis Preop Diagnosis Crohn's Postop Diagnosis hemorrhoids, diverticulosis, Crohn's Wound Class Definitions Last Modified By: Mara Shannon MGR-NURSING 04/05/22 10:53:34 [facility] - General Case Data Audit 04/05/22 10:53:34 Horse Racing Manager: [id number] Modifier: [id number] <+> 1 Postop Diagnosis [facility] - Intraoperative Assessment Entry 1 Valid History / Yes Physical in Chart Preoperative Yes Checklist Reviewed/Evaluated Patient is Latex No Sensitive Isolation Not applicable Precautions Noted Skin Assessment Yes Verified Present Upon IVs, ECG monitored Arrival to OR Last Modified By: Mara Shannon MGR-ABIEL 04/05/22 10:32:20 [facility] - Intraoperative Equipment Entry 1 Type Scope Equipment Intraop Monitoring Electrocardiogram Three lead placement (ECG) Electrode Placement Blood Pressure Non-Invasive BP Device Source Blood Pressure Arm, left upper Location Pulse Oximeter Hand, right Probe Site Antiembolic Devices Scopes Flexible Endoscopes Colonoscope, Peds Used Scope Serial [id number] Number/Identificatio n Number Photo/Video Documentation Photo Yes Video No Last Modified By: Mara Shannon MGR-ABIEL 04/05/22 10:33:44 [facility] - Patient Positioning Entry 1 Procedure Colonoscopy, Colon Biopsy Body Position Lateral, right side up Left Arm Position Resting at side Right Arm Position Resting at side Left Leg Position Other Right Leg Position Other Feet Uncrossed Yes Pressure Points Yes Checked Positioned By Mara Shannon R-ABIEL, MELANIE MEHTA CRNA, Reed, Rashell, [employer] Position Verified Positioning Yes Verified by Anesthesia Positioning Yes Verified by Surgeon Last Modified By: Mara Shannon MGR-ABIEL 04/05/22 10:43:30 [facility] - Patient Positioning Audit 04/05/22 10:43:30 Horse Racing Manager: [id number] Modifier: [id number] 1 <*> Procedure Colonoscopy [facility] - Sign In Entry 1 Patient, Site, Yes Procedure Identified Surgical Consent Yes Confirmed Relevant Surgical Yes Documents Available Surgical Site N/A Marked by person performing procedure Medication Checks Yes Completed Airway Difficult No Airway/Aspiration Risk Difficult Yes Airway/Aspiration Intervention Equipment Available Blood Loss Risk No Blood Loss No Intervention Equipment Prepared and Ready Blood Identifiers Not applicable Verified Per Policy Hypothermia Risk Yes Warming Measures Yes Taken Last Modified By: Mara Shannon MGR-ABILE 04/05/22 10:32:35 [facility] - Sign Out Entry 1 RN Confirmation Instrument, Sponge N/A and Sharps Counts Correct/Documented Equipment Problems N/A Documented Specimen Labeled Yes Correctly Urinary Catheter N/A Documented in IView Wound Yes classification reviewed, verified and updated post case in both the General Case Data and Procedure segments Safety Checklist Yes Elements Complete? RN Sign Out Mara Shannon Signature MGR-NURSING RN Sign Out 04/05/22 10:54:00 Signature Date/Time Plan of Care Outcome - Fire Risk OUTCOME STATEMENT: Goal met Patient is free from injury related to surgical fire Plan of Care Outcome - Pt Positioning OUTCOME STATEMENT: Goal met Absence of signs and symptoms of positioning injury. Plan of Care Outcome - Skin Prep OUTCOME STATEMENT: Goal met Intraoperative care is consistent with measures to prevent infection Plan of Care Outcome - Xray/Images OUTCOME STATEMENT: N/A Absence of observable signs or symptoms of radiation injury Plan of Care Outcome - Counts OUTCOME STATEMENT: Goal met Absence of signs and symptoms of injury related to extraneous objects Last Modified By: Mara Shannon MGR-NURSING 04/05/22 10:53:50 [facility] Endo - Sign Out Audit 04/05/22 10:53:50 Horse Racing Manager: [id number] Modifier: [id number] <+> 1 RN Sign Out Signature Date/Time [facility] Endo - Surgical Procedures Entry 1 Entry 2 Procedure Colonoscopy Colon Biopsy Modifiers Additional terminal ileum, left, Procedure right Description Primary Procedure Yes No Primary Surgeon KEMAR FELDER MD-GAE WOLFORD, TRACEY, MD-GAE Start 04/05/22 10:32:00 04/05/22 10:32:00 Stop 04/05/22 10:52:00 04/05/22 10:52:00 Physician States 04/05/22 10:37:00 04/05/22 10:37:00 Cecum Reached Anesthesia Type [facility] Specialty Gastroenterology Gastroenterology Wound Class 2 - Clean-Contaminated 2 - Clean-Contaminated Last Modified By: Mara Shannon Zimmer, Courtney, MGR-NURSING 04/05/22 MGR-NURSING 04/05/22 10:53:54 10:53:54 [facility] Endo - Surgical Procedures Audit 04/05/22 10:53:54 Horse Racing Manager: [id number] Modifier: [id number] <+> 1 Stop <+> 2 Stop 04/05/22 10:45:58 Horse Racing Manager: [id number] Modifier: [id number] 2 <*> Procedure Colon Biopsy 2 <*> Additional Procedure Description terminal ileum 04/05/22 10:43:26 Horse Racing Manager: [id number] Modifier: [id number] <+> 2 Procedure <+> 2 Primary Procedure <+> 2 Primary Surgeon <+> 2 Specialty <+> 2 Start <+> 2 Wound Class <+> 2 Anesthesia Type <+> 2 Additional Procedure Description <+> 2 Physician States Cecum Reached 04/05/22 10:41:51 Horse Racing Manager: [id number] Modifier: [id number] 1 <*> Procedure Colonoscopy 1 <+> Wound Class 1 <+> Physician States Cecum Reached 04/05/22 10:33:49 Horse Racing Manager: [id number] Modifier: [id number] <+> 1 Start [facility] - Time Out Entry 1 Procedure to be Colonoscopy, Colon Performed Biopsy Time Out Time Out Pause Time 04/05/22 10:29:00 All activity Yes suspended (unless life threatening emergency) Team Verbally Correct patient Confirms Information identity, Consent form is present and accurate, Agreement on the procedure to be done, Correct patient position Antibiotic N/A Prophylaxis Administered Or In Progress Within the Last 60 Minutes Beta Nas N/A Administered Venous N/A Thromboembolism Prophylaxis Required Anticipated Critical Events Surgeon None expected Last Modified By: Mara Shannon, MGR-NURSING 04/05/22 10:43:30 [facility] Endo - Time Out Audit 04/05/22 10:43:30 Horse Racing Manager: [id number] Modifier: [id number] 1 <*> Procedure to be Performed Colonoscopy 04/05/22 10:36:09 Horse Racing Manager: [id number] Modifier: [id number] 1 <+> Beta Nas Administered 1 <*> All activity suspended (unless life Yes threatening emergency) 1 <+> Venous Thromboembolism Prophylaxis Required 1 <+> Antibiotic Prophylaxis Administered Or In Progress Within the Last 60 Minutes 1 <+> Surgeon 1 <*> Time Out Pause Time 04/05/22 10:29:00 1 <*> Procedure to be Performed Colonoscopy 1 <*> Team Verbally Confirms Information Correct patient identity, Consent form is present and accurate, Agreement on the procedure to be done, Correct patient position Entry 2 was deleted. Higher numbered entries shifted one position to fill the gap. <-> 2 Beta Nas Administered N/A <-> 2 Venous Thromboembolism Prophylaxis N/A Required <-> 2 Antibiotic Prophylaxis Administered N/A Or In Progress Within the Last 60 Minutes <-> 2 Surgeon None expected <-> 2 Procedure to be Performed Colonoscopy <-> 2 Team Verbally Confirms Information Correct patient identity, Consent form is present and accurate, Agreement on the procedure to be done, Correct patient position Case Comments <None> Finalized By: Jerica, Mary Kay, RN Document Signatures Signed By: Mara Shannon, R-NURSING 04/05/22 10:54 Mary Kay Pizano RN 04/05/22 15:42 Unfinalized History Date/Time Username Reason for Unfinalizing Freetext Reason for Unfinalizing 04/05/22 15:42 [id number] Finish Documentation Electronically signed by [facility], [facility] Conversion Operator [employer] Cerner at 03/06/2023 7:36 PM CDT documented in this encounter Plan of Treatment Upcoming Encounters Date Type Department Care Team (Late st Contact Info) Description 09/25/2025 11:30 AM EST Office Visit [facility] Gastroenterology [address] [facility] [address] [place] [address] Carlos Ramirez MD [address] [place] [address] documented as of this encounter Visit Diagnoses Not on filedocumented in this encounter Care Teams Twist Maker Relationship Specialty Start Date End Date Hammad Tiwari MD [address] [place] [address] PCP - General Adolescent Medicine 03/15/23 documented as of this encounter
--- OUTSIDE RECORDS SUMMARY | 2025-06-11 09:14 | XMS_ITS | Encounter Summary ---
Author Organization [employer] ([place], [place], [place], [place]) Address [address] [place] [address] Care Team Providers Care Telegraph Repeater Technician Name Role Phone Hammad Tiwari MD Primary Care Provider [phone] Encounter Details Date Type Department Care Team (Late st Contact Info) Description 04/05/2022 Transcribed Document [facility] [place] [address] [place] [address] ProviderMichelle MD [address] [place] [address] Social History Tobacco Use Types Packs/Day Years Used Date Smoking Tobacco: Never Assessed Family and Community Support Answer Billy e Recorded Help with Day to Day Activities Not on file 12/09/2023 Feeling Lonely or Isolated Not on file 12/09 Educational Attainment Answer Date Elton rded Speak language other than Luxembour[place] at home Not on file 12/09/2023 Want [...] Miscellaneous Notes * [employer]ner Conversion Note - Michelle ProviderMD - 04/05/2022 10:09 AM CDT ED Height and Weight Entered On: 04/05/2022 10:09 EDT Performed On: 04/05/2022 10:09 EDT by Rosa Maria Beckett Rn ED Height and Weight Height Source : Stated Height Entry Format : Likely Height, Feet : 5 ft(Converted to: 152 cm, 60 Inch) Height, Inches : 1 Inch(Converted to: 0 ft 1 Inch, 2.54 cm) Clinical Height : 154.94 cm Weight Source, ED : Standing scale Weight Entry Format : Likely Weight, Pounds : 191 lb Clinical Dosing Weight : 86.82 kg Body Surface Area (BSA) : 1.85 m2 Body Mass Index : 36.2 kg/m2 (HI) [place] Body Weight (IBW) : 47.45 kg Rosa Maria Beckett Rn - 04/05/2022 10:09 EDT documented in this encounter Plan of Treatment Upcoming Encounters Date Type Department Care Team (Late st Contact Info) Description 09/25/2025 11:30 AM EST Office Visit [facility] Gastroenterology [address] [facility] [address] [place] [address] Carlos Ramirez MD [address] [place] [address] documented as of this encounter Visit Diagnoses Not on filedocumented in this encounter Care Teams Telegraph Repeater Technician Relationship Specialty Start Date End Date Hammad Tiwari MD [address] [place] [address] PCP - General Adolescent Medicine 03/15/23 documented as of this encounter
--- OUTSIDE RECORDS SUMMARY | 2025-06-11 09:14 | XMS_ITS | Encounter Summary ---
Author Organization [employer] ([place], [place], [place], [place]) Address [address] [place] [address] Care Team Providers Care Supervisor Intelligence Analyst Name Role Phone Hammad Tiwari MD Primary Care Provider [phone] Encounter Details Date Type Department Care Team (Late st Contact Info) Description 04/05/2022 Transcribed Document [facility] [place] Family Medicine [address] [place] [address] ProviderMichelle MD [address] [place] [address] Social History Tobacco Use Types Packs/Day Years Used Date Smoking Tobacco: Never Assessed Family and Community Support Answer Billy e Recorded Help with Day to Day Activities Not on file 12/09/2023 Feeling Lonely or Isolated Not on file 12/09 Educational Attainment Answer Date Elton rded Speak language other than Central African at home Not on file 12/09/2023 Want [...] Conversion Note - Historical ProviderMD - 04/05/2022 10:05 AM CDT Patient: CELE LIND Age: 61 years Sex: Female : 1960 Associated Diagnoses: None Author: KEMAR FELDER MD-GAE Basic Information Source of history: Self. Chief Complaint Crohns History of Present Illness Patient presents today for colonoscopy for Crohn's surveillance. Denies gastrointestinal complaints. Current drug regimen includes Mesalamine and Humira. Recently started Methotrexate for psoriatic arthritis. Last colonoscopy was 2015 which showed no active Crohn's. Biopsies showed quiescent colitis. Histories Past Medical History: No active or resolved past medical history items have been selected or recorded. Procedure history: Abdominal hernia (760467461). Tubal ligation (071924403). Laparoscopic cholecystostomy (2995023268). Social History Social & Psychosocial Habits No Data Available . Family History: No FH of GI disease or malignancy Health Status Allergies: Allergic Reactions (All) No Known Medication Allergies, Allergies (1) Active Reaction No Known Medication Allergies None Documented Current medications: (Selected) Inpatient Medications Ordered Normal Saline 1,000 mL: 50 mL/Hr, IntraVENous lidocaine 1% injectable solution: 0.5 mL, IntraDermal, 1-Time, PRN: Other (See Comment) Documented Medications Documented B 50 Complex: 0 Refill(s) Dulcolax Stool Softener: mg, Oral, BID, 0 Refill(s) Humira: 40 mg, SubCutaneous, O2Rkorg, 0 Refill(s) Multiple Vitamins oral capsule: 1 Cap, Oral, Daily, 30 Cap, 0 Refill(s) Prevagen Extra Strength: mcg, Oral, Daily, 0 Refill(s) calcium-vitamin D 250 mg-12.5 mcg (500 intl units) oral tablet, chewable: 2 Tab, Chew, BID With Meals, 70 Tab, 0 Refill(s) cyclobenzaprine 5 mg oral tablet: Tab, Oral, TID, 0 Refill(s) folic acid 1 mg oral tablet: Tab, Oral, Daily, 0 Refill(s) hydroCHLOROthiazide-lisinopril 12.5 mg-20 mg oral tablet: 1 Tab, Oral, Daily, 30 Tab, 0 Refill(s) magnesium chloride: 0 Refill(s) mesalamine 0.375 g oral capsule, extended release: 4 Cap, Oral, QAM, 120 Cap, 0 Refill(s) methotrexate: 2.5 mg, Oral, Weekly, 0 Refill(s) ondansetron 4 mg oral tablet: 1 Tab, Oral, Q8H, PRN: Nausea, 0 Refill(s), Medications (2) Active Scheduled: (0) Continuous: (1) NaCl 0.9% 1,000 mL 1,000 mL, IntraVENous, 50 mL/Hr PRN: (1) lidocaine 1% *PF* inj 2 mL 0.5 mL, IntraDermal, 1-Time Problem list: All Problems Crohns disease of small intestine / SNOMED CT 94123255 / Confirmed Psoriatic arthritis / SNOMED CT 701235919 / Confirmed Hypertension / SNOMED CT 8735721161 / Confirmed Osteoarthritis / SNOMED CT 3049247530 / Confirmed, Active Problems (4) Crohns disease of small intestine Hypertension Osteoarthritis Psoriatic arthritis Review of Systems Constitutional: No fever, No chills, No weight gain, No weight loss. Eye: No recent visual problem, No blurring. Ear/Nose/Mouth/Throat: No dysphagia, No epistaxis, No hoarse voice, No sore throat. Respiratory: No shortness of breath, No cough, No hemoptysis. Cardiovascular: No chest pain, No palpitations, No claudication. Gastrointestinal: No nausea, No vomiting, No diarrhea, No constipation, No heartburn, No belching, No bloating, No abdominal pain, No hematemesis, No change in bowel habits, No melena, No rectal bleeding. Genitourinary: No dysuria, No hematuria. Hematology/Lymphatics: No bruising tendency, No bleeding tendency. Endocrine: No excessive thirst, No cold intolerance, No heat intolerance. Musculoskeletal: No joint pain, No muscle pain, No gait disturbance, No joint redness. Integumentary: No rash, No pruritus. Neurologic: No confusion, No dizziness, No headache, No seizure. Psychiatric: No anxiety, No depression. the rest of the 10 system review is negative Physical Examination VS/Measurements Vitals Signs (last 24 hrs) Last Charted Minimum Maximum Temp 97.3 (APRIL 05 09:54) 97.3 (APRIL 05 09:54) 97.3 (APRIL 05 09:54) Mon HR 69 (APRIL 05 09:54) 69 (APRIL 05 09:54) 69 (APRIL 05 09:54) Resp Rate 16 (APRIL 05 09:54) 16 (APRIL 05 09:54) 16 (APRIL 05 09:54) SBP H 173 (APRIL 05 09:54) H 173 (APRIL 05 09:54) H 173 (APRIL 05 09:54) DBP 87 (APRIL 05 09:54) 87 (APRIL 05 09:54) 87 (APRIL 05 09:54) SpO2 99 (APRIL 05 09:54) 99 (APRIL 05 09:54) 99 (APRIL 05 09:54) General: No acute distress. Appearance: Well nourished. Eye: Pupils are equal, round and reactive to light, Extraocular movements are intact, Normal conjunctiva. Sclera: Both eyes, Within normal limits. HENT: Normocephalic, Normal hearing, Oral mucosa is moist. Nose: Both nostrils, Within normal limits, Patent. Mouth: pink. Neck: Supple, Non-tender, No carotid bruit, No jugular venous distention. Respiratory: Lungs are clear to auscultation, Respirations are non-labored, Breath sounds are equal. Pattern: Regular. Cardiovascular: Normal rate, Regular rhythm, No murmur, No gallop, No edema. Arterial pulses: Bilateral, Dorsalis pedis, Within normal limits. Gastrointestinal: Soft, Non-tender, Non-distended, Normal bowel sounds, No organomegaly. Abdomen: Liver ( Within normal limits ). Lymphatics: Lymphatic exam: Bilateral, Cervical chain, Inguinal, Within normal limits. Musculoskeletal: Normal range of motion, Normal strength, No tenderness, No deformity, Normal gait. Integumentary: Warm, Dry, [place], No rash. Integumentary exam: Face, Chest, Arm, Abdomen, Leg. Neurologic: Alert, Oriented, No focal deficits. Orientation: To person, To place, To time. Psychiatric: Cooperative, Appropriate mood & affect, Normal judgment. Review / Management Results review: No qualifying data available. Impression and Plan Colonoscopy screening for crohns surveillance. Risks including that of bleeding, splenic rupture, missed colon lesion and perforation have been discussed with the patient who verbalizes understanding and agrees to proceed. Further recommendations will be based on the above findings. \.brTP as above performed by Zenia Kaur APRN. documented in this encounter Plan of Treatment Upcoming Encounters Date Type Department Care Team (Late st Contact Info) Description 09/25/2025 11:30 AM EST Office Visit [facility] Gastroenterology [address] [facility] [address] [place] [address] Carlos Ramirez MD [address] [place] [address] documented as of this encounter Visit Diagnoses Not on filedocumented in this encounter Care Teams Supervisor Intelligence Analyst Relationship Specialty Start Date End Date Hammad Tiwari MD [address] [place] [address] PCP - General Adolescent Medicine 03/15/23 documented as of this encounter
--- OUTSIDE RECORDS SUMMARY | 2025-06-11 09:14 | XMS_ITS | Encounter Summary ---
Author Organization [employer] ([place], [place], [place], [place]) Address [address] [place] [address] Care Team Providers Care Building Construction Foreman Name Role Phone Hammad Tiwari MD Primary Care Provider [phone] Encounter Details Date Type Department Care Team (Late st Contact Info) Description 04/05/2022 Transcribed Document [facility] [address] [place] [address] ProviderMichelle MD [address] [place] [address] Social History Tobacco Use Types [...] Conversion Note - Michelle ProviderMD - 04/05/2022 10:30 AM CDT [facility] PreOp Summary Primary Physician: KEMAR FELDER MD-GAE Finalized Date/Time: 04/05/22 10:10:45 Pt. Name: CELE LIND Eduardo Jensen/Sex: 1960 Female Med Rec #: [id number] Physician: KEMAR FELDER MD-GAE Financial #: [id number] Pt. Type: E Room/Bed: [facility] Admit/Disch: 04/05/22 09:17:00 - Institution: [facility] PreOp Case Times Entry 1 In Preop 04/05/22 09:40:00 Ready for Holding n/a Room Patient Ready for 04/05/22 10:10:00 Surgery Patient Out of Preop 04/05/22 10:10:00 Patient Out of n/a Holding Room Finalized By: Rosa Maria Beckett, Rn Document Signatures Signed By: Rosa Maria Beckett Rn 04/05/22 10:10 documented in this encounter Plan of Treatment Upcoming Encounters Date Type Department Care Team (Late st Contact Info) Description 09/25/2025 11:30 AM EST Office Visit [facility] Gastroenterology [address] [facility] [address] [place] [address] Carlos Ramirez MD [address] [place] [address] documented as of this encounter Visit Diagnoses Not on filedocumented in this encounter Care Teams Building Construction Foreman Relationship Specialty Start Date End Date Hammad Tiwari MD [address] [place] [id number] PCP - General Adolescent Medicine 03/15/23 documented as of this encounter
[2025-06-11 09:46] LABS: Hematocrit 38.9 % (37.0-47.0); Hemoglobin 13.4 g/dL (12.2-16.2); Immature Granulocytes % 0.3 %; Mean Corpuscular HGB Conc 34.4 g/dL (31.8-35.4); Mean Corpuscular Hemoglobin 31.5 pg (27.0-31.2); Mean Corpuscular Volume 91.5 fl (81-99); Nucleated Red Blood Cells % 0 %; Platelet Count 288 K/mm3 (142-424); Red Blood Count 4.25 M/mm3 (4.20-5.40); Red Cell Distribution Width-SD 45.5 fL; White Blood Count 8.9 K/mm3 (4.8-10.8)
[2025-06-11 10:15] LABS: Alanine Aminotransferase 12 U/L (12-78); Albumin Level 3.8 g/dl (3.5-5.0); Albumin/Globulin Ratio 1.6 (1.1-1.8); Alkaline Phosphatase 59 U/L (38-126); Anion Gap 7.6 mEq/L (5-15); Aspartate Amino Transferase 22 U/L (14-36); Bilirubin,Total 1.7 mg/dl (0.2-1.3); Blood Urea Nitrogen 10 mg/dl (7-17); Calcium 9.2 mg/dl (8.4-10.2); Carbon Dioxide 32 mmol/L (22.0-30.0); Chloride 101 mmol/L (98-107); Creatinine,Serum 0.90 mg/dl (0.52-1.04); Estimated Glomerular Filt Rate 62 ml/min (>60); GFR (African American) 76 ML/MIN (>60); Globulin 2.4 g/dL (1.3-3.2); Glucose 94 mg/dl (74-100); Potassium 3.6 mmoL/L (3.5-5.1); Sodium 137 mmol/L (136-145); Total Protein,Serum 6.2 g/dl (6.3-8.2)
[2025-06-11 10:20] LABS: C-Reactive Protein 36.9 mg/L (0-4)
== END 2025-06-11 23:59 | disposition home or self-care (01) ==
LOC: LAB 09:11
PROVIDERS: PCP Nurse Practitioner Family; Visit Provider Nurse Practitioner Family
DX: L40.50 Arthropathic psoriasis, unspecified (principal); R53.82 Chronic fatigue, unspecified
CPT/HCPCS: 36415; 80053; 80074; 85025; 85651; 86140; 86480

== ENCOUNTER 2025-06-19 10:13 | Outpatient (CLI) | payer MEDICARE, BC, SELFPAY ==
--- NOTE | 2025-06-19 10:17 | US_ITS ---
FINAL REPORT TECHNIQUE: Sonographic images of the right upper quadrant were obtained. CLINICAL HISTORY: ELEVATED BILIRUBIN FINDINGS: PANCREAS: Unremarkable. LIVER: Homogeneous. No focal hepatic lesion. The portal vein is patent with normal directional flow. No intrahepatic biliary ductal dilatation. GALLBLADDER: The gallbladder is absent. COMMON DUCT: 7 mm. Which is normal after cholecystectomy. RIGHT KIDNEY: The right kidney measures 7.3 cm. There is no hydronephrosis, mass, or stone. FREE FLUID: None. IMPRESSION: Unremarkable ultrasound of the right upper quadrant after cholecystectomy. Reviewed, Interpreted and Dictated by Katy Gonzalez MD Transcribed by Denice Reeves Authenticated and [facility]
--- OUTSIDE RECORDS SUMMARY | 2025-06-19 10:17 | XMS_ITS | Clinical Summary ---
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 Her [...] Encounters Date Type Department Care Team Description 06/18/2025 Telephone [facility] Gastroenterology [address] [facility] [address] [place] [address] Asuncion Mathews, COMMERCIAL ROOFING ESTIMATOR Abnormal Lab 04/10/2025 Orders Only [facility] Gastroenterology [address] [facility] [address] [place] [address] Provider, MD Michelle 03/27/2025 1:45 PM EDT Office Visit [facility] Gastroenterology [address] [facility] [address] [place] [address] Carlos Ramirez MD Crohn's disease of both [...] Date Elton rded Speak language other than Czech at home Not on file 12/09/2023 Want [...] Description 09/25/2025 11:30 AM EST Office Visit [facility] Gastroenterology [address] [facility] [place] [address] [place] [address] Carlos Ramirez MD [address] [place] [address] Health Maintenance Due Date Last Done Comments [...] Medicare Initial AWV [id number] 03/22/2024 COVID-19 VACCINE (2023-2 5 season) 2024 08/18/2022, 08/18/2022, 09/19/2021, Additional history exists Falls Risk Screening 11/21/2024 Influenza Vaccine (#1) 2025 08/21/2021, 2016 Tobacco Cessation Counseling and Screening (12+) 03/27/2026 03/27/2025 Colonoscopy 06/26/2034 06/26/2024, 04/05/2022 Colorectal Cancer Screening 06/26/2034 Procedures Procedure Name Priority Date/Time Associated Diagnosis Comments COLONOSCOPY Routine 04/05/2022 from Last 3 Months or Most Recently Relevant to Health Maintenance Results * COLONOSCOPY (04/05/2022) Frances Samson MD HEALTH MAINTENANCE Final Resul t from Last 3 Months or Most Recently Relevant to Health Maintenance Insurance MEDICARE PART A B [facility] Care Teams Concierge Receptionist Relationship Specialty Start Date End Date Hammad Tiwari MD [address] [place] [address] PCP - General Adolescent Medicine 03/15/23
--- OUTSIDE RECORDS SUMMARY | 2025-06-19 10:17 | XMS_ITS | Clinical Summary ---
Author Organization [facility] Address [address] [place] [address] Care Team Providers Care Mechanic/Welder Name Role Phone Mitra Sargent APRN Primary [...] for PsA. She walked a lot at [employer] last month. She has occasional pain. 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 Her [...] the lumbar spine This is the biggest motor vehicle escort driver of her pain right now. Her [...] the lumbar spine This is the biggest motor vehicle escort driver of her pain right now. Her [...] Encounters Date Type Department Care Team Description 06/17/2025 Results Follow-Up [facility] RHEUMATOLOGY [address] [place] [phone] Cecily Hanson, TREND INVESTIGATOR 06/17/2025 Results Follow-Up [facility] RHEUMATOLOGY [address] [place] [phone] Cecily Hanson, TREND INVESTIGATOR 06/11/2025 Results Follow-Up [facility] RHEUMATOLOGY [address] [place] [phone] Cecily Hanson, TREND INVESTIGATOR 06/11/2025 Results Follow-Up [facility] RHEUMATOLOGY [address] [place] [phone] Cecily Hanson, TREND INVESTIGATOR 05/09/2025 Telephone [facility] RHEUMATOLOGY [address] [place] [phone] David Zarate MD 04/25/2025 Telephone [facility] RHEUMATOLOGY [address] [place] [phone] Cecily Hanson, TREND INVESTIGATOR Prior Authorization ([place] Izagu[place]re: [id number]- Cyclobenzaprine HCl 5MG tablets) 04/22/2025 Refill [facility] RHEUMATOLOGY [address] [place] [phone] David Zarate MD 04/16/2025 3:00 PM EDT Office Visit [facility] RHEUMATOLOGY [address] [place] [phone] Cecily Hanson APRN Psoriatic arthritis (Primary Dx); Psoriasis; Osteoarthritis of lumbar spine, unspecified spinal osteoarthritis complication status; Crohn's disease with complication, unspecified gastrointestinal tract location; Osteoporosis without current pathological fracture, unspecified osteoporosis type; High risk medication use; Immunosuppression due to drug therapy; Chronic fatigue 04/16/2025 Travel from Last 3 Months Immunizations Immunization Administration [...] Visit [facility] RHEUMATOLOGY [address] [address] Cecily Hanson APRN [address] [phone] 11/18/2025 1:30 PM EST Office Visit [facility] RHEUMATOLOGY [address] [address] David Zarate MD [address] [facility] [address] [place], [place] [id number] Health Maintenance Due Date Last Done Comments [...] Date/Time Associated Diagnosis Comments SCANNED - LABS 06/11/2025 SCANNED - LABS 06/11/2025 SCANNED - LABS 06/11/2025 SCANNED - LABS 06/11/2025 SCANNED - DEXA Routine 06/17/2024 2:34 PM EDT from Last 3 Months or Most Recently Relevant to Health Maintenance Results * LABS SCANNED (06/11/2025) Only the most recent of4 resultswithin the time period is included. HelioYuliya Valentin TRACY LAB BLOOD ORDERABLES F inal Result * DEXA Scan (06/17/2024 2:34 PM EDT) Anatomical Region Laterality Modality Other Historical Provider CHART REVIEW TABS Steph l Result from Last 3 Months or Most Recently Relevant to Health Maintenance Insurance [facility] MEDICARE A & B Care Teams Mechanic/Welder Relationship Specialty Start Date End Date Mitra Sargent APRN [address] [place] [id number] PCP - General Family Medicine 06/18/24
--- OUTSIDE RECORDS SUMMARY | 2025-06-19 10:17 | XMS_ITS | Referral Summary ---
Author Organization [employer] ([place], [place], [place], [place]) Address [address] [place] [address] Care Team Providers Care Plugger Name Role Phone Hammad Tiwari MD Primary Care Provider [phone] Encounters Date Type Department Care Team Description 06/18/2025 Telephone [facility] Gastroenterology [address] [facility] [address] [place] [address] Asuncion Mathews, ELECTRONIC DATA PROCESSING AUDITOR Abnormal Lab 04/10/2025 Orders Only [facility]ology [address] [facility] [address] [place] [address] ProviderMichelle MD 03/27/2025 Travel 03/27/2025 1:45 PM EDT Office Visit [facility] Gastroenterology [address] [place] [address] Carlos Ramirez MD Crohn's disease of both [...] total) by mouth once a week. 11/05/20 Active risedronate (ACTONEL) 150 MG tablet Take 1 tablet (150 mg total) by mouth. 10/27/20 Active clobetasoL (CLOBEX) 0.05 % shampoo daily. 02/04/20 Active folic acid (FOLVITE) 1 MG tablet Take 1 tablet (1,000 mcg total) by mouth daily. 03/15/20 Active calcium carbonate-vitami n D3 600 mg-5 [...] the lumbar spine This is the biggest transfer driver of her pain right now. Her [...] e alcohol) Family and Community Support Answer Iblly e Recorded Help with Day to Day Activities Not on file 12/09/2023 Feeling Lonely or Isolated Not on file 12/09 Educational Attainment Answer Date Elton rded Speak language other than Israeli at home Not on file 12/09/2023 Want [...] Description 09/25/2025 11:30 AM EST Office Visit [facility] Gastroenterology [address] [facility] [address] [place] [address] Carlos Ramirez MD [address] [place] [address] Procedures Procedure Name Priority Date/Time Associated Diagnosis Comments COLONOSCOPY Routine 04/05/2022 from Last 3 Months or Most Recently Relevant to Health Maintenance Results * HM COLONOSCOPY (04/05/2022) us Frances Samson MD HEALTH MAINTENANCE Final Resul t from Last 3 Months or Most Recently Relevant to Health Maintenance Insurance MEDICARE PART A B Care Teams Plugger Relationship Specialty Start Date End Date Hammad Tiwari MD [address] [place] [address] PCP - General Adolescent Medicine 03/15/23
--- OUTSIDE RECORDS SUMMARY | 2025-06-19 10:17 | XMS_ITS | Encounter Summary ---
Author Organization [facility] Address [address] [place] [address] Care Team Providers Care General Assistant Name Role Phone Roestta Mitra Radha TRACY Primary Care Provid er Encounter Details Date Type Department Care Team (Late st Contact Info) Description 05/09/2025 Telephone [facility] RHEUMATOLOGY [address] [address] David Zarate MD [address] [address] Social History Tobacco Use Types [...] Received PA request for risedronate, CMM brownlee [id number]. Submitted, then received message that prior authorization was not required. Last rx was sent with incomplete instructions so I am going to resend a corrected rx in case that caused an issue. HUB OK TO RELAY documented in this encounter Plan of Treatment Upcoming Encounters Date Type Department Care Team (Late st Contact Info) Description 08/20/2025 2:00 PM EDT Office Visit [facility] RHEUMATOLOGY [address] [address] Cecily Hasnon APRN 330 [facility] [address] [place], [place] [phone] 11/18/2025 1:30 PM EST Office Visit [facility] RHEUMATOLOGY [address] [address] David Zarate MD [address] [phone] documented as of this encounter Goals Goal [...] on filedocumented in this encounter Care Teams General Assistant Relationship Specialty Start Date End Date Mitra Sargent APRN [address] [facility] [address] [place] [address] PCP - General Family Medicine 06/18/24 documented as of this encounter
--- OUTSIDE RECORDS SUMMARY | 2025-06-19 10:17 | XMS_ITS | Encounter Summary ---
Author Organization [facility] Address [address] [place] [phone] Care Team Providers Care Regional Hr Manager Name Role Phone Mitra Sargent APRN Primary Care Provid er Encounter Details Date Type Department Care Team (Late Contact Info) Description 06/17/2025 Results Follow-Up [facility] RHEUMATOLOGY [address] [address] Cecily Hanson APRN [address] [phone] Social History Tobacco Use Types Packs/Day Years [...] 08/20/2025 2:00 PM EDT Office Visit [facility] RHEUMATOLOGY [address] [address] Cecily Hanson APRN [address] [phone] 11/18/2025 1:30 PM EST Office Visit [facility] RHEUMATOLOGY [address] [address] David Zarate MD 330 [facility] [address] [place] [address] documented as of this encounter Goals Goal [...] on filedocumented in this encounter Care Teams Regional Hr Manager Relationship Specialty Start Date End Date Mitra Sargent APRN [address] [facility] [address] [place] [address] PCP - General Family Medicine 06/18/24 documented as of this encounter
--- OUTSIDE RECORDS SUMMARY | 2025-06-19 10:17 | XMS_ITS | Encounter Summary ---
Author Organization [employer] ([place], [place], [place], [place]) Address [address] [place] [address] Care Team Providers Care Public Relations Assistant Name Role Phone Hammad Tiwari MD Primary Care Provider [phone] Encounter Details Date Type Department Care Team (Late st Contact Info) Description 04/05/2022 Transcribed Document [facility] Family Medicine [address] [place] [address] ProviderMichelle MD [address] [place] [address] Social History Tobacco Use Types Packs/Day Years Used Date Smoking Tobacco: Never Assessed Family and Community Support Answer Billy e Recorded Help with Day to Day Activities Not on file 12/09/2023 Feeling Lonely or Isolated Not on file 12/09 Educational Attainment Answer Date Elton rded Speak language other than Indonesian at home Not on file 12/09/2023 Want [...] Name: CELE LIND Eduardo Cee./Sex: 1960 Female [facility] Rec #: [id number] Physician: KEMAR FELDER MD-GAE Financial #: [id number] Pt. Type: Room/Bed: [facility] Admit/Disch: 04/05/22 09:17:00 - Institution: [facility] Endo - Case Attendance Entry 1 Entry 2 Entry 3 Case Attendee KEMAR FELDER MD-GAE Zimmer, Courtney, Edmundson, Stephanie, RN MGR-NURSING Role Performed Surgeon/Proceduralist, Band Scroll Saw Operator, First Band Scroll Saw Operator, Second First Time In 04/05/22 10:26:00 04/05/22 [...] MELANIE MEHTA Reed, Rashell, ROTH, GAVIN, MD-ANS BLOW OFF WORKER [employer]LE SCHOOL PROFESSIONAL Role Performed BLOW OFF WORKER/Nurse Patient Financial Rep Scrub, First Anesthesiologist of Record Time In 04/05/22 10:26:00 04/05/22 10:26:00 04/05/22 10:26:00 Time Out 04/05/22 10:54:00 04/05/22 10:54:00 04/05/22 10:54:00 Procedure Colonoscopy, Colon Colonoscopy, Colon Colonoscopy, Colon Biopsy Biopsy Biopsy Other Attendee Superficial Wound Closed By: Last Modified By: Mara Shannon Zimmer, Courtney, Zimmer, Courtney, MGR-NURSING 04/05/22 MGR-NURSING 04/05/22 MGR-NURSING 04/05/22 10:53:08 10:53:08 10:53:08 [facility] - Case Attendance Audit 04/05/22 10:53:08 Greenhouse Manager: [id number] Modifier: [id number] <+> Time Out 1 <*> Procedure Colonoscopy, Colon Biopsy 2 <+> Time Out 2 <*> Procedure Colonoscopy, Colon Biopsy 3 <+> Time Out 3 <*> Procedure Colonoscopy, Colon Biopsy 4 <+> Time Out 4 <*> Procedure Colonoscopy, Colon Biopsy 5 <+> Time Out 5 <*> Procedure Colonoscopy, Colon Biopsy 6 <+> Time Out 6 <*> Procedure Colonoscopy, Colon Biopsy 04/05/22 10:43:28 Greenhouse Manager: [id number] Modifier: [id number] 1 <*> Procedure Colonoscopy 2 <*> Procedure Colonoscopy 3 <*> Procedure Colonoscopy 4 <*> Procedure Colonoscopy 5 <*> Procedure Colonoscopy 6 <*> Procedure Colonoscopy 04/05/22 10:30:52 Greenhouse Manager: [id number] Modifier: [id number] <+> 1 Procedure 2 <*> Procedure Colonoscopy [...] Endo - Case Times Audit 04/05/22 10:53:07 Greenhouse Manager: [id number] Modifier: [id number] <+> 1 Out Room Time <+> 1 Stop Time <+> 1 Stop Time 04/05/22 10:32:28 Greenhouse Manager: [id number] Modifier: [id number] <+> 1 Start Time 04/05/22 10:30:06 Greenhouse Manager: [id number] Modifier: [id number] <+> 1 Start Time [facility] - [...] Accompanied by MADI, Mara Shannon, MGR-NURSING, Mary Kay Pizano, MARIAJOSE Last Modified By: Mara Shannon [...] 04/05/22 10:31:03 E Endo - General Case Vp Patient 1 Case Information OR Endo 01 [facility] Case Level 1 Room Verified Yes Wound Class 2 - Clean-Contaminated Specialty Gastroenterology Anesthesia Type MAC ASA Class 3 Diagnosis Preop Diagnosis Crohn's Postop Diagnosis hemorrhoids, diverticulosis, Crohn's Wound Class Definitions Last Modified By: Mara Shannon MGR-NURSING 04/05/22 10:53:34 [facility] - General Case Data Audit 04/05/22 10:53:34 Greenhouse Manager: [id number] Modifier: [id number] <+> 1 Postop Diagnosis [facility] End[facility] - [...] Shannon R-ABIEL, MELANIE MEHTA CRNA, Reed, Rashell, MIDDLE SCHOOL PROFESSIONAL Position Verified Positioning Yes Verified by Anesthesia Positioning Yes Verified by Surgeon Last Modified By: Mara Shannon MGR-ABIEL 04/05/22 10:43:30 [facility] - Patient Positioning Audit 04/05/22 10:43:30 Greenhouse Manager: [id number] Modifier: [id number] <*> Procedure Colonoscopy [facility] - [...] Yes Taken Last Modified By: Mara Shannon MGR-ABIEL 04/05/22 10:32:35 [facility] - Sign Out Entry 1 RN Confirmation Instrument, Sponge N/A and Sharps Counts Correct/Documented Equipment Problems N/A Documented Specimen Labeled Yes Correctly Urinary Catheter N/A Documented in IView Wound Yes classification reviewed, verified and updated post case in both the General Case Data and Procedure segments Safety Checklist Yes Elements Complete? RN Sign Out Mraa Shannon Signature MGR-NURSING RN Sign Out 04/05/22 [...] Modified By: Mara Shannon MGR-NURSING 04/05/22 10:53:50 [facility] Endo - Sign Out Audit 04/05/22 10:53:50 Greenhouse Manager: [id number] Modifier: [id number] <+> 1 RN Sign Out Signature Date/Time [facility] Endo - Surgical Procedures Entry 1 Entry 2 Procedure Colonoscopy Colon Biopsy Modifiers Additional terminal ileum, left, Procedure right Description Primary Procedure Yes No Primary Surgeon KEMAR FELDER MD-GAE WOLFORD, TRACEY, MD-GAE Start 04/05/22 10:32:00 04/05/22 10:32:00 Stop 04/05/22 10:52:00 04/05/22 10:52:00 Physician States 04/05/22 10:37:00 04/05/22 10:37:00 Cecum Reached Anesthesia Type [facility] Specialty Gastroenterology Gastroenterology Wound Class 2 - Clean-Contaminated 2 - Clean-Contaminated Last Modified By: Mara Shannon Zimmer, Courtney, MGR-NURSING 04/05/22 MGR-NURSING 04/05/22 10:53:54 10:53:54 [facility] Endo - Surgical Procedures Audit 04/05/22 10:53:54 Greenhouse Manager: [id number] Modifier: [id number] <+> 1 Stop <+> 2 Stop 04/05/22 10:45:58 Greenhouse Manager: [id number] Modifier: [id number] 2 <*> Procedure Colon Biopsy 2 <*> Additional Procedure Description terminal ileum 04/05/22 10:43:26 Greenhouse Manager: [id number] Modifier: [id number] <+> 2 Procedure <+> 2 Primary Procedure <+> 2 Primary Surgeon <+> 2 Specialty <+> 2 Start <+> 2 Wound Class <+> 2 Anesthesia Type <+> 2 Additional Procedure Description <+> 2 Physician States Cecum Reached 04/05/22 10:41:51 Greenhouse Manager: [id number] Modifier: [id number] 1 <*> Procedure Colonoscopy 1 <+> Wound Class 1 <+> Physician States Cecum Reached 04/05/22 10:33:49 Greenhouse Manager: [id number] Modifier: [id number] <+> 1 Start [facility] End[facility] - Time [...] Modified By: Mara Shannon, MGR-NURSING 04/05/22 10:43:30 [facility] Endo - Time Out Audit 04/05/22 10:43:30 Greenhouse Manager: [id number] Modifier: [id number] 1 <*> Procedure to be Performed Colonoscopy 04/05/22 10:36:09 Greenhouse Manager: [id number] Modifier: [id number] 1 <+> Beta Nas Administered 1 <*> [...] Kay, RN Document Signatures Signed By: Mara Shannno, R-NURSING 04/05/22 10:54 Mary Kay Pizano RN 04/05/22 15:42 Unfinalized History Date/Time Username Reason for Unfinalizing Freetext Reason for Unfinalizing 04/05/22 15:42 [id number] Finish Documentation Electronically signed by [facility], [facility] Conversion Unix Manager Cerner at 03/06/2023 7:36 PM CDT documented in this encounter Plan of Treatment Upcoming Encounters Date Type Department Care Team (Late st Contact Info) Description 09/25/2025 11:30 AM EST Office Visit [facility] Gastroenterology [email or web address] [facility] [address] [place] [address] Carlos Ramirez MD [email or web address] [place] [address] documented as of this encounter Visit Diagnoses Not on filedocumented in this encounter Care Teams Public Relations Assistant Relationship Specialty Start Date End Date Hammad Tiwari MD [address] [place] [address] PCP - General Adolescent Medicine 03/15/23 documented as of this encounter
--- OUTSIDE RECORDS SUMMARY | 2025-06-19 10:17 | XMS_ITS ---
Author Organization [facility] Address [address] [place] [address] Care Team Providers Care Clam Picker Name Role Phone Mitra Sargent APRN Primary Care Provid er Rheumatology Status:Enrolled (Active) Start date:06/18/2024 Enrollment date:06/27/2024 Enrollment reason:New start at Current support & services provided:Clinical Assessment, Refill Coordination , Benefits Investigation, [employer] Pharmacy Dispensing Linked medications:Ustekinumab (Active) Linked problems:Psoriatic arthritis (Active) Continued Care and Services Coordination
--- OUTSIDE RECORDS SUMMARY | 2025-06-19 10:17 | XMS_ITS | Encounter Summary ---
Author Organization [employer] ([place], [place], [place], [place]) Address [address] [place] [address] Care Team Providers Care Pipe Finishing Supervisor Name Role Phone Hammad Tiwari MD Primary Care Provider [phone] Encounter Details Date Type Department Care Team (Late st Contact Info) Description 04/05/2022 Transcribed Document [facility] [place] [address] [place] [address] ProviderMichelle MD [address] [place] [address] Social History Tobacco Use Types Packs/Day Years Used Date Smoking Tobacco: Never Assessed Family and Community Support Answer Billy e Recorded Help with Day to Day Activities Not on file 12/09/2023 Feeling Lonely or Isolated Not on file 12/09 Educational Attainment Answer Date Elton rded Speak language other than Slovenian at home Not on file 12/09/2023 Want [...] Historical ProviderMD - 04/05/2022 11:03 AM CDT [address], [place] [id number] CELE LIND :1960 Visit Time:04/05/2022 What to [...] with pathology results in 7-10 days. Where: [address] [place] [address] [address] [place] [id number]- Medications What How Much When Instructions Next [...] you are awake and alert. ??? Take yusq-pwo-rbhryps and prescription medicines only as told by [...] Reviewed: 10/09/2020 Elsevier Patient Education ?? 2020 [employer]. Hemorrhoids Hemorrhoids are swollen veins that [...] times a day. General instructions ??? Take jcrs-djo-mzsmuwx and prescription medicines only as told by [...] provider. Document Revised: 11/15/2019 Document Reviewed: 03/29/2019 [employer] Patient Education ?? 2020 [employer]. Diverticulosis Diverticulosis is a condition that develops [...] getting enough exercise. ??? Smoking. ??? Taking eqae-ceh-ihcboxz pain medicines, like aspirin and ibuprofen. ??? [...] these instructions at home: Medicines ??? Take xmvz-ghy-nsvccen and prescription medicines only as told by your health care provider. ??? If told by your health care provider, take a fiber supplement or probiotic. Constipation prevention Your condition may cause constipation. To prevent or treat constipation, you may need to: ??? Drink enough fluid to keep your urine pale yellow. ??? Take ybft-vdg-sqecmpk or prescription medicines. ??? Eat foods that [...] provider. Document Revised: 06/05/2020 Document Reviewed: 06/05/2020 [employer] Patient Education ?? 2020 [employer]. Colonoscopy, Adult, Care After This sheet gives [...] soft and easy to digest. ??? Take rdqc-kib-wizhqvl or prescription medicines only as told by [...] provider. Document Revised: 09/12/2020 Document Reviewed: 06/02/2020 [employer] Patient Education ?? 2020 [employer]. Colon Polyps Colon polyps are tissue growths [...] liquor (44 mL). General instructions ??? Take ilnx-vfd-ezczzag and prescription medicines only as told by [...] provider. Document Revised: 02/25/2021 Document Reviewed: 02/25/2021 [employer] Code Patient Education ?? 2020 [employer]. Emergency Awareness and Preventative Care STROKE [...] Assistance with quitting is available by contacting 9-767-XDHVNOW. This is a free resource providing counseling, support, and referral. Or you may contact your personal physician. [employer] Suicide Prevention Lifeline: The National Suicide Prevention [...] was given the opportunity to ask questions. Patient/Packing Room Supervisor Name: Patient/Packing Room Supervisor Signature: Relationship to Patient: Clinician/Hospital Packing Room Supervisor Signature: Date: documented in this encounter Plan of Treatment Upcoming Encounters Date Type Department Care Team (Late st Contact Info) Description 09/25/2025 11:30 AM EST Office Visit [facility] Gastroenterology [address] [facility] [address] [place] [phone] Carlos Ramirez MD [address] [place] [phone] documented as of this encounter Visit Diagnoses Not on filedocumented in this encounter Care Teams Pipe Finishing Supervisor Relationship Specialty Start Date End Date Hammad Tiwari MD [address] [place] [address] PCP - General Adolescent Medicine 03/15/23 documented as of this encounter
--- OUTSIDE RECORDS SUMMARY | 2025-06-19 10:17 | XMS_ITS | Encounter Summary ---
Author Organization [employer] ([place], [place], [place], [place]) Address [address] [place] [address] Care Team Providers Care Project Manager Industrial Name Role Phone Hammad Tiwari MD Primary Care Provider [phone] Encounter Details Date Type Department Care Team (Late st Contact Info) Description 04/05/2022 Transcribed Document [facility] [place] Medicine [address] [place] [address] ProviderMichelle MD [address] [place] [address] Social History Tobacco Use Types Packs/Day Years Used Date Smoking Tobacco: Never Assessed Family and Community Support Answer Billy e Recorded Help with Day to Day Activities Not on file 12/09/2023 Feeling Lonely or Isolated Not on file 12/09 Educational Attainment Answer Date Elton rded Speak language other than Icelandic at home Not on file 12/09/2023 Want [...] Conversion Note - Historical ProviderMD - 04/05/2022 10:30 AM CDT [facility] PreOp Summary Primary Physician: KEMAR FELDER MD-GAE Finalized Date/Time: 04/05/22 10:10:45 Pt. Name: CELE LIND Eduardo Jensen/Sex: 1960 Female Med Rec #: [id number] Physician: KEMAR FELDER MD-GAE Financial #: [id number] Pt. Type: E Room/Bed: [facility] Admit/Disch: 04/05/22 09:17:00 - Institution: [facility] [...] Description 09/25/2025 11:30 AM EST Office Visit [facility] Gastroenterology [address] [facility] [address] [address] Carlos Ramirez MD [address] [address] documented as of this encounter Visit Diagnoses Not on filedocumented in this encounter Care Teams Project Manager Industrial Relationship Specialty Start Date End Date Hammad Tiwari MD [address] [place] [address] PCP - General Adolescent Medicine 03/15/23 documented as of this encounter
--- OUTSIDE RECORDS SUMMARY | 2025-06-19 10:17 | XMS_ITS | Encounter Summary ---
Author Organization [employer] ([place], [place], [place], [place]) Address [address] [place] [address] Care Team Providers Care Manager Hris Name Role Phone Hammad Twiari MD Primary Care Provider [phone] Encounter Details Date Type Department Care Team (Late st Contact Info) Description 04/05/2022 Transcribed Document [facility] [place] [address] [place] [address] ProviderMichelle MD [address] [place] [address] Social History Tobacco Use Types [...] Historical ProviderMD - 04/05/2022 11:01 AM CDT [address], [place] [phone] CELE LIND :1960 Visit Time:04/05/2022 What to [...] with pathology results in 7-10 days. Where: [address] [place] [address] [address] [place] [phone]- Medications What How Much When Instructions Next [...] you are awake and alert. ??? Take pbpp-jue-noqcpde and prescription medicines only as told by [...] Reviewed: 10/09/2020 Elsevier Patient Education ?? 2020 [email or web address] Hemorrhoids Hemorrhoids are swollen veins that [...] times a day. General instructions ??? Take yrgy-ckz-wzuualw and prescription medicines only as told by [...] provider. Document Revised: 11/15/2019 Document Reviewed: 03/29/2019 [email or web address] Patient Education ?? 2020 [employer] Diverticulosis Diverticulosis is a condition that develops [...] getting enough exercise. ??? Smoking. ??? Taking heii-sxj-oqmxkmf pain medicines, like aspirin and ibuprofen. ??? [...] these instructions at home: Medicines ??? Take hekd-ucl-jnarnat and prescription medicines only as told by your health care provider. ??? If told by your health care provider, take a fiber supplement or probiotic. Constipation prevention Your condition may cause constipation. To prevent or treat constipation, you may need to: ??? Drink enough fluid to keep your urine pale yellow. ??? Take hqqr-ent-ypuvowl or prescription medicines. ??? Eat foods that [...] provider. Document Revised: 06/05/2020 Document Reviewed: 06/05/2020 [email or web address] Patient Education ?? 2020 [employer] Colonoscopy, Adult, Care After This sheet gives [...] soft and easy to digest. ??? Take xbhv-xbg-vqyuoyd or prescription medicines only as told by [...] provider. Document Revised: 09/12/2020 Document Reviewed: 06/02/2020 [email or web address] Patient Education ?? 2020 [employer], [employer] Colon Polyps Colon polyps are tissue growths [...] liquor (44 mL). General instructions ??? Take rrys-ujh-rowhsmj and prescription medicines only as told by [...] provider. Document Revised: 02/25/2021 Document Reviewed: 02/25/2021 [email or web address] Patient Education ?? 2020 [email or web address]. Emergency Awareness and Preventative Care STROKE [...] Assistance with quitting is available by contacting 4-521-ECUPNOW. This is a free resource providing counseling, support, and referral. Or you may contact your personal physician. [place] Suicide Prevention Lifeline: The National Suicide Prevention [...] was given the opportunity to ask questions. Patient/Tablet Tester Name: Patient/Tablet Tester Signature: Relationship to Patient: Clinician/Hospital Tablet Tester Signature: Date: documented in this encounter Plan of Treatment Upcoming Encounters Date Type Department Care Team (Late st Contact Info) Description 09/25/2025 11:30 AM EST Office Visit [facility] Gastroenterology [address] [facility] [address] [place] [phone] Carlos Ramirez MD [address] [place] [phone] documented as of this encounter Visit Diagnoses Not on filedocumented in this encounter Care Teams Manager Hris Relationship Specialty Start Date End Date Hammad Tiwari MD [address] [place] [address] PCP - General Adolescent Medicine 03/15/23 documented as of this encounter
--- OUTSIDE RECORDS SUMMARY | 2025-06-19 10:17 | XMS_ITS | Encounter Summary ---
Author Organization [employer] ([place], [place], [place], [place]) Address [address] [place] [address] Care Team Providers Care Federal District Clerk Name Role Phone Hammad Tiwari MD Primary Care Provider [phone] Encounter Details Date Type Department Care Team (Late st Contact Info) Description 04/05/2022 Transcribed Document [facility] [place] [address] [place] [address] ProviderMichelle MD [address] [place] [address] Social History Tobacco Use Types Packs/Day Years Used Date Smoking Tobacco: Never Assessed Family and Community Support Answer Billy e Recorded Help with Day to Day Activities Not on file 12/09/2023 Feeling Lonely or Isolated Not on file 12/09 Educational Attainment Answer Date Elton rded Speak language other than Botswanan at home Not on file 12/09/2023 Want [...] selected or recorded. Procedure history: Abdominal hernia (193059834). Tubal ligation (950087153). Laparoscopic cholecystostomy (7235399548). Social History Social & Psychosocial Habits No [...] BID, 0 Refill(s) Humira: 40 mg, SubCutaneous, P5Jyfjf, 0 Refill(s) Multiple Vitamins oral capsule: 1 [...] disease of small intestine / SNOMED CT 64339460 / Confirmed Psoriatic arthritis / SNOMED CT 486500620 / Confirmed Hypertension / SNOMED CT 2747647875 / Confirmed Osteoarthritis / SNOMED CT 4662356052 / Confirmed, Active Problems (4) Crohns disease [...] No deformity, Normal gait. Integumentary: Warm, Dry, H[place], No rash. Integumentary exam: Face, Chest, Arm, [...] Description 09/25/2025 11:30 AM EST Office Visit [facility] Gastroenterology [address] [facility] [address] [place] [phone] Carlos Ramirez MD [address] [place] [address] documented as of this encounter Visit Diagnoses Not on filedocumented in this encounter Care Teams Federal District Clerk Relationship Specialty Start Date End Date Hammad Tiwari MD [address] [place] [address] [place] [address] PCP - General Adolescent Medicine 03/15/23 documented as of this encounter
--- OUTSIDE RECORDS SUMMARY | 2025-06-19 10:17 | XMS_ITS | Encounter Summary ---
Author Organization [facility] Address [address] [place] [phone] Care Team Providers Care Wood Car Builder Name Role Phone Mitra Sargent APRN Primary Care Provid er Encounter Details Date Type Department Care Team (Late Contact Info) Description 03/19/2025 Results Follow-Up [facility] RHEUMATOLOGY [address] [address] Cecily Hanson APRN [address] [phone] Social History Tobacco Use Types Packs/Day Years [...] Description 08/20/2025 2:00 PM EDT Office Visit [facility] RHEUMATOLOGY [address] [address] Cecily Hanson APRN [address] [phone] 11/18/2025 1:30 PM EST Office Visit [facility] RHEUMATOLOGY [address] [address] David Zarate MD 330 [facility] [address] [place] [address] documented as of this encounter Goals Goal [...] on filedocumented in this encounter Care Teams Wood Car Builder Relationship Specialty Start Date End Date Mitra Sargent APRN [address] [facility] [address] [place] [address] PCP - General Family Medicine 06/18/24 documented as of this encounter
--- OUTSIDE RECORDS SUMMARY | 2025-06-19 10:17 | XMS_ITS | Encounter Summary ---
Author Organization [facility] Address [address] [place] [address] Care Team Providers Care Adjustment Examiner Name Role Phone Mitra Sargent APRN Primary Care Provid er Reason for Visit * Reason Onset Date Comments Prior Authorization 04/25/2025 JONAHTAN Izaguirre: [id number]- Cyclobenzaprine HCl 5MG tablets Encounter Details Date Type Department Care Team (Late st Contact Info) Description 04/25/2025 Telephone [facility] RHEUMATOLOGY [address] [address] Cecily Hanson APRN [address] [address] Prior Authorization (JONATHAN Izaguirre: [id number]- Cyclobenzaprine HCl 5MG tablets) Social History Tobacco [...] - 04/25/2025 2:51 PM EDT JONATHAN Izaguirre: [id number]- Cyclobenzaprine HCl 5MG tablets documented in this encounter Plan of Treatment Upcoming Encounters Date Type Department Care Team (Late st Contact Info) Description 08/20/2025 2:00 PM EDT Office Visit [facility] RHEUMATOLOGY [address] [phone] Cecily Hanson APRN [address] [address] 11/18/2025 1:30 PM EST Office Visit [facility] RHEUMATOLOGY [address] [phone] David Zarate MD [address] [phone] documented as of this encounter Goals Goal [...] on filedocumented in this encounter Care Teams Adjustment Examiner Relationship Specialty Start Date End Date Mitra Sargent APRN [address] [facility] [address] [place] [address] PCP - General Family Medicine 06/18/24 documented as of this encounter
--- OUTSIDE RECORDS SUMMARY | 2025-06-19 10:17 | XMS_ITS | Encounter Summary ---
Author Organization [facility] Address [address] [place] [phone] Care Team Providers Care Information Services Consultant Name Role Phone Mitra Sargent APRN Primary Care Provid er Encounter Details Date Type Department Care Team (Late Contact Info) Description 06/17/2025 Results Follow-Up [facility] RHEUMATOLOGY [address] [address] Cecily Hanson APRN [address] [phone] Social History Tobacco Use Types Packs/Day Years [...] Office Visit [facility] RHEUMATOLOGY [address] [address] Cecily Hanson APRN [address] [phone] 11/18/2025 1:30 PM EST Office Visit [facility] RHEUMATOLOGY [address] [address] David Zarate MD 330 [facility] [address] [place] [address] documented as of this encounter Goals Goal [...] on filedocumented in this encounter Care Teams Information Services Consultant Relationship Specialty Start Date End Date Mitra Sargent APRN [address] [facility] [address] [place] [address] PCP - General Family Medicine 06/18/24 documented as of this encounter
--- OUTSIDE RECORDS SUMMARY | 2025-06-19 10:17 | XMS_ITS | Encounter Summary ---
Author Organization [employer] ([place], [place], [place], [place]) Address [address] [place] [address] Care Team Providers Care Hoop Punch And Coiler Operator Helper Name Role Phone Hammad Tiwari MD Primary Care Provider [phone] Encounter Details Date Type Department Care Team (Late st Contact Info) Description 04/05/2022 Transcribed Document [facility] [place] Family Medicine [address] [place] [address] ProviderMichelle MD [address] [place] [address] Social History Tobacco Use Types Packs/Day Years Used Date Smoking Tobacco: Never Assessed Family and Community Support Answer Billy e Recorded Help with Day to Day Activities Not on file 12/09/2023 Feeling Lonely or Isolated Not on file 12/09 Educational Attainment Answer Date Elton rded Speak language other than Maldivian at home Not on file 12/09/2023 Want [...] Source : Stated Height Entry Format : [place] Height, Feet : 5 ft(Converted to: 152 cm, 60 Inch) Height, Inches : 1 Inch(Converted to: 0 ft 1 Inch, 2.54 cm) Clinical Height : 154.94 cm Weight Source, ED : Standing scale Weight Entry Format : [place] Weight, Pounds : 191 lb Clinical Dosing Weight : 86.82 kg Body Surface Area (BSA) : 1.85 m2 Body Mass Index : 36.2 kg/m2 (HI) [place] Body Weight (IBW) : 47.45 kg Rosa Maria Beckett Rn - 04/05/2022 10:09 EDT Electronically signed by Leni [facility] Conversion Medical Lab Technologist Cerner at 03/06/2023 7:31 PM CDT documented in this encounter Plan of Treatment Upcoming Encounters Date Type Department Care Team (Late st Contact Info) Description 09/25/2025 11:30 AM EST Office Visit [facility] Gastroenterology [address] [employer] [facility] [address] [place] [address] Carlos Ramirez MD [address] [facility] [place] [address] documented as of this encounter Visit Diagnoses Not on filedocumented in this encounter Care Teams Hoop Punch And Coiler Operator Helper Relationship Specialty Start Date End Date Hammad Tiwari MD [address] [place] [address] PCP - General Adolescent Medicine 03/15/23 documented as of this encounter
--- OUTSIDE RECORDS SUMMARY | 2025-06-19 10:17 | XMS_ITS | Encounter Summary ---
Author Organization [employer] ([place], [place], [place], [place]) Address [address] [place] [address] Care Team Providers Care Bell Hole Digger Name Role Phone Hammad Tiwari MD Primary Care Provider [phone] Encounter Details Date Type Department Care Team (Late st Contact Info) Description 04/05/2022 Transcribed Document [facility] [place] [address] [place] [address] ProviderMichelle MD [address] [place] [address] Social History Tobacco Use Types Packs/Day Years Used Date Smoking Tobacco: Never Assessed Family and Community Support Answer Billy e Recorded Help with Day to Day Activities Not on file 12/09/2023 Feeling Lonely or Isolated Not on file 12/09 Educational Attainment Answer Date Elton rded Speak language other than Dutch at home Not on file 12/09/2023 Want [...] times a day. General instructions ??? Take bmlx-zip-evsewcg and prescription medicines only as told by [...] provider. Document Revised: 11/15/2019 Document Reviewed: 03/29/2019 [employer] Patient Education ? 2020 [employer]. Diverticulosis Diverticulosis is a condition that develops [...] getting enough exercise. ??? Smoking. ??? Taking fese-fit-aaflfno pain medicines, like aspirin and ibuprofen. ??? [...] these instructions at home: Medicines ??? Take buue-izu-xofjgha and prescription medicines only as told by your health care provider. ??? If told by your health care provider, take a fiber supplement or probiotic. Constipation prevention Your condition may cause constipation. To prevent or treat constipation, you may need to: ??? Drink enough fluid to keep your urine pale yellow. ??? Take lyel-xku-wteawun or prescription medicines. ??? Eat foods that [...] provider. Document Revised: 06/05/2020 Document Reviewed: 06/05/2020 [employer] Patient Education ? 2020 [employer]. Oncology Colon Polyps Colon polyps are tissue [...] liquor (44 mL). General instructions ??? Take qgbo-gui-jncbrfs and prescription medicines only as told by [...] provider. Document Revised: 02/25/2021 Document Reviewed: 02/25/2021 [employer] Patient Education ? 2020 [employer] Pharmacology Monitored Anesthesia Care, Care After [...] you are awake and alert. ??? Take sgko-awv-bnbinff and prescription medicines only as told by [...] provider. Document Revised: 07/23/2021 Document Reviewed: 10/09/2020 [employer] Patient Education ? 2020 [employer] Radiology Colonoscopy, Adult, Care After This [...] soft and easy to digest. ??? Take fixo-ipi-hlpzyge or prescription medicines only as told by [...] provider. Document Revised: 09/12/2020 Document Reviewed: 06/02/2020 [employer] Patient Education ? 2020 [employer]. documented in this encounter Plan of Treatment Upcoming Encounters Date Type Department Care Team (Late st Contact Info) Description 09/25/2025 11:30 AM EST Office Visit [facility] [address] [facility] [address] [place] [phone] Carlos Ramirez MD [address] [place] [address] documented as of this encounter Visit Diagnoses Not on filedocumented in this encounter Care Teams Bell Hole Digger Relationship Specialty Start Date End Date Hammad Tiwari MD [address] [place] [address] PCP - General Adolescent Medicine 03/15/23 documented as of this encounter
--- OUTSIDE RECORDS SUMMARY | 2025-06-19 10:17 | XMS_ITS | Encounter Summary ---
Author Organization [facility] Address [address] [place] [address] Care Team Providers Care Talent Consultant Name Role Phone Roestta Mitra Radha TRACY Primary Care Provid er Reason for Visit * Reason Onset Date Comments Med Refill 04/22/2025 Encounter Details Date Type Department Care Team (Late st Contact Info) Description 04/22/2025 Refill [facility] [address] [phone] David Zarate MD 330 [place] [address] Social History Tobacco Use Types Packs/Day Years [...] chart. She needs her Actonel send in [facility] as her pharmacy isn't open on the weekends in [place]. - Ana Laura GlennaALLIE Gloria * Telephone Encounter - Ana Laura Smith MA - 05/01/2025 11:47 AM EDT Pt called and said that she had labs done on 03/19/25 and they are in her chart. She would like for us to send in her Actonel rx to [facility] in [place]. - ALLIE Larson * Telephone Encounter - Ana Laura Smith MA - 04/30/2025 11:39 AM EDT Rx denied. Pt needs labs prior to refill. I sent message to pt via [employer] letting her know that weneed labs prior [...] Description 08/20/2025 2:00 PM EDT Office Visit [facility] [address] [phone] Cecily Hanson APRN 330 [facility] 100 [place], [place] [id number] 11/18/2025 1:30 PM EST Office Visit [facility] [address] [address] David Zarate MD [address] [phone] documented as of this encounter Goals Goal [...] on filedocumented in this encounter Care Teams Talent Consultant Relationship Specialty Start Date End Date Mitra Sargent APRN [address] [place] [address] PCP - General Family Medicine 06/18/24 documented as of this encounter
--- OUTSIDE RECORDS SUMMARY | 2025-06-19 10:17 | XMS_ITS | Encounter Summary ---
Author Organization [employer] ([place], [place], [place], [place]) Address [address] [place] [address] Care Team Providers Care Drum Cleaner Name Role Phone Hammad Tiwari MD Primary Care Provider [phone] Reason for Visit * Reason Onset Date Comments Abnormal Lab 06/18/2025 Encounter Details Date Type Department Care Team (Late st Contact Info) Description 06/18/2025 Telephone [facility] Gastroenterology [address] [facility] [address] [place] [address] Asuncion Mathews, [facility] Abnormal Lab Social History Tobacco Use Types Packs/Day Years Used Date Smoking Tobacco: Never Passive Smoke Exposure: Never Smokeless Tobacco: Never Alcohol Use Standard Drinks/Week Comments Never 0 (1 standard drink = 0.6 oz pur e alcohol) Family and Community Support Answer Billy e Recorded Help with Day to Day Activities Not on file 12/09/2023 Feeling Lonely or Isolated Not on file 12/09 Educational Attainment Answer Date Elton rded Speak language other than Guatemalan at home Not on file 12/09/2023 Want [...] encounter Miscellaneous Notes * Telephone Encounter - Asuncion Mathews CMA - 06/18/2025 4:30 PM EDT Patient called with a lab report of her total bilirubin at 1.7. Labs collected with Rheumatology. documented in this encounter Plan of Treatment Upcoming Encounters Date Type Department Care Team (Late st Contact Info) Description 09/25/2025 11:30 AM EST Office Visit [facility] Gastroenterology [address] [facility] [address] [place] [address] Carlos Ramirez MD [address] [place] [address] documented as of this encounter Visit Diagnoses Not on filedocumented in this encounter Care Teams Drum Cleaner Relationship Specialty Start Date End Date Hammad Tiwari MD [address] [place] [address] PCP - General Adolescent Medicine 03/15/23 documented as of this encounter
--- OUTSIDE RECORDS SUMMARY | 2025-06-19 10:17 | XMS_ITS | Encounter Summary ---
Author Organization [facility] Address [address] [place] [id number] Care Team Providers Care Conference Manager Name Role Phone Mitra Sargent APRN Primary Care Provid er Encounter Details Date Type Department Care Team (Late Contact Info) Description 06/11/2025 Results Follow-Up [facility] RHEUMATOLOGY [address] [address] Cecily Hanson APRN [address] [phone] Social History Tobacco Use Types Packs/Day Years [...] Description 08/20/2025 2:00 PM EDT Office Visit [facility] [address] [address] Cecily Hanson APRN [address] [phone] 11/18/2025 1:30 PM EST Office Visit [facility] RHE[facility] [address] [address] David Zarate MD 330 [facility] 100 [place] [address] documented as of this encounter Goals Goal [...] on filedocumented in this encounter Care Teams Conference Manager Relationship Specialty Start Date End Date Mitra Sargent APRN [address] [facility] [address] [place] [address] PCP - General Family Medicine 06/18/24 documented as of this encounter
== END 2025-06-19 23:59 | disposition home or self-care (01) ==
LOC: RAD 10:14
PROVIDERS: Visit Provider Nurse Practitioner Family
DX: R17 Unspecified jaundice (principal); Z90.49 Acquired absence of other specified parts of digestive tract
CPT/HCPCS: 76705

== ENCOUNTER 2025-07-04 09:32 | Outpatient (CLI) | payer MEDICARE, BC, SELFPAY ==
--- NOTE | 2025-07-04 09:34 | MM_ITS ---
PROCEDURE INFORMATION: Exam: MG Bilateral Screening 3D Mammography Exam date and time: 07/04/2025 10:01 AM Age: 65 years old Clinical indication: Screening examination TECHNIQUE: Imaging protocol: Bilateral Screening tomosynthesis and 2D mammography including computer-aided detection (CAD) when performed. COMPARISON: 1. MG MM DIG SCREENING MAMM BI W/CAD 07/03/2024 8:56 AM 2. MG MM DIG SCREENING MAMM BI W/CAD 06/14/2023 10:47 AM FINDINGS: MAMMOGRAPHY: Breast composition: There are scattered areas of fibroglandular density. Mass: No suspicious masses. Architectural distortion: None. Calcifications: No suspicious calcifications. Asymmetric density: None. Skin thickening: None. Axillary adenopathy: None. IMPRESSION: No mammographic evidence of malignancy. Annual screening is recommended unless otherwise clinically indicated. ASSESSMENT: BI-RADS Category 1: Negative.
--- OUTSIDE RECORDS SUMMARY | 2025-07-04 09:35 | XMS_ITS | Encounter Summary ---
Author Organization [employer] ([place], [place], [place], [place]) Address [address] [place] [address] Care Team Providers Care Telesales Team Leader Name Role Phone Hammad Tiwari MD Primary Care Provider [phone] Encounter Details Date Type Department Care Team (Late st Contact Info) Description 04/05/2022 Transcribed Document [facility] [address] [place] [address] ProviderMichelle MD [address] [place] [address] Social History Tobacco Use Types Packs/Day Years Used Date Smoking Tobacco: Never Assessed Family and Community Support Answer Billy e Recorded Help with Day to Day Activities Not on file 12/09/2023 Feeling Lonely or Isolated Not on file 12/09 Educational Attainment Answer Date Elton rded Speak language other than Costa Rican at home Not on file 12/09/2023 Want [...] Name: CELE LIND Eduardo Cee./Sex: 1960 Female [facility] Rec #: [id number] Physician: KEMAR FELDER MD-GAE Financial #: [id number] Pt. Type: Room/Bed: [facility] Admit/Disch: 04/05/22 09:17:00 - Institution: [facility] Endo - Case Attendance Entry 1 Entry 2 Entry 3 Case Attendee KEMAR FELDER MD-GAE Zimmer, Courtney, Edmundson, Stephanie, RN MGR-NURSING Role Performed Surgeon/Proceduralist, Senior Analyst Developer, First Senior Analyst Developer, Second First Time In 04/05/22 10:26:00 04/05/22 [...] MELANIE MEHTA Reed, Rashell, ROTH, GAVIN, MD-ANS FORECLOSURE SPECIALIST LEAD QUALITY CONTROL TECHNICIAN Role Performed FORECLOSURE SPECIALIST/Nurse Psychological Aide Scrub, First Anesthesiologist of Record Time In 04/05/22 10:26:00 04/05/22 10:26:00 04/05/22 10:26:00 Time Out 04/05/22 10:54:00 04/05/22 10:54:00 04/05/22 10:54:00 Procedure Colonoscopy, Colon Colonoscopy, Colon Colonoscopy, Colon Biopsy Biopsy Biopsy Other Attendee Superficial Wound Closed By: Last Modified By: Mara Shannon Zimmer, Courtney, Zimmer, Courtney, MGR-NURSING 04/05/22 MGR-NURSING 04/05/22 MGR-NURSING 04/05/22 10:53:08 10:53:08 10:53:08 [facility] Endo - Case Attendance Audit 04/05/22 10:53:08 Unindentured Apprentice: [id number] Modifier: [id number] <+> Time Out 1 <*> Procedure Colonoscopy, Colon Biopsy 2 <+> Time Out 2 <*> Procedure Colonoscopy, Colon Biopsy 3 <+> Time Out 3 <*> Procedure Colonoscopy, Colon Biopsy 4 <+> Time Out 4 <*> Procedure Colonoscopy, Colon Biopsy 5 <+> Time Out 5 <*> Procedure Colonoscopy, Colon Biopsy 6 <+> Time Out 6 <*> Procedure Colonoscopy, Colon Biopsy 04/05/22 10:43:28 Unindentured Apprentice: [id number] Modifier: [id number] 1 <*> Procedure Colonoscopy 2 <*> Procedure Colonoscopy 3 <*> Procedure Colonoscopy 4 <*> Procedure Colonoscopy 5 <*> Procedure Colonoscopy 6 <*> Procedure Colonoscopy 04/05/22 10:30:52 Unindentured Apprentice: [id number] Modifier: [id number] <+> 1 Procedure 2 <*> Procedure Colonoscopy [...] Endo - Case Times Audit 04/05/22 10:53:07 Unindentured Apprentice: [id number] Modifier: [id number] <+> 1 Out Room Time <+> 1 Stop Time <+> 1 Stop Time 04/05/22 10:32:28 Unindentured Apprentice: [id number] Modifier: [id number] <+> 1 Start Time 04/05/22 10:30:06 Unindentured Apprentice: [id number] Modifier: [id number] <+> 1 Start Time [facility] End[facility] - [...] 04/05/22 10:31:03 E Endo - General Case Metal Cans Supervisor 1 Case Information OR Endo 01 [facility] Case Level 1 Room Verified Yes Wound Class 2 - Clean-Contaminated Specialty Gastroenterology Anesthesia Type MAC ASA Class 3 Diagnosis Preop Diagnosis Crohn's Postop Diagnosis hemorrhoids, diverticulosis, Crohn's Wound Class Definitions Last Modified By: Mara Shannon MGR-NURSING 04/05/22 10:53:34 [facility] Endo - General Case Data Audit 04/05/22 10:53:34 Unindentured Apprentice: [id number] Modifier: [id number] <+> 1 Postop Diagnosis [facility] Endo - [...] Shannon R-ABIEL, MELANIE MEHTA CRNA, Reed, Rashell, LEAD QUALITY CONTROL TECHNICIAN Position Verified Positioning Yes Verified by Anesthesia Positioning Yes Verified by Surgeon Last Modified By: Mara Shannon MGR-ABIEL 04/05/22 10:43:30 [facility] End[facility] - Patient Positioning Audit 04/05/22 10:43:30 Unindentured Apprentice: [id number] Modifier: [id number] 1 <*> Procedure Colonoscopy [facility] Endo - [...] Modified By: Mara Shannon MGR-NURSING 04/05/22 10:53:50 [facility] Endo - Sign Out Audit 04/05/22 10:53:50 Unindentured Apprentice: [id number] Modifier: [id number] <+> 1 RN Sign Out Signature Date/Time [facility] Endo - Surgical Procedures Entry 1 Entry 2 Procedure Colonoscopy Colon Biopsy Modifiers Additional terminal ileum, left, Procedure right Description Primary Procedure Yes No Primary Surgeon KEMAR FELDRE MD-GAE WOLFORD, TRACEY, MD-GAE Start 04/05/22 10:32:00 04/05/22 10:32:00 Stop 04/05/22 10:52:00 04/05/22 10:52:00 Physician States 04/05/22 10:37:00 04/05/22 10:37:00 Cecum Reached Anesthesia Type [facility] Specialty Gastroenterology Gastroenterology Wound Class 2 - Clean-Contaminated 2 - Clean-Contaminated Last Modified By: Mara Shannon Zimmer, Courtney, MGR-NURSING 04/05/22 MGR-NURSING 04/05/22 10:53:54 10:53:54 [facility] Endo - Surgical Procedures Audit 04/05/22 10:53:54 Unindentured Apprentice: [id number] Modifier: [id number] <+> 1 Stop <+> 2 Stop 04/05/22 10:45:58 Unindentured Apprentice: [id number] Modifier: [id number] 2 <*> Procedure Colon Biopsy 2 <*> Additional Procedure Description terminal ileum 04/05/22 10:43:26 Unindentured Apprentice: [id number] Modifier: [id number] <+> 2 Procedure <+> 2 Primary Procedure <+> 2 Primary Surgeon <+> 2 Specialty <+> 2 Start <+> 2 Wound Class <+> 2 Anesthesia Type <+> 2 Additional Procedure Description <+> 2 Physician States Cecum Reached 04/05/22 10:41:51 Unindentured Apprentice: [id number] Modifier: [id number] 1 <*> Procedure Colonoscopy 1 <+> Wound Class 1 <+> Physician States Cecum Reached 04/05/22 10:33:49 Unindentured Apprentice: [id number] Modifier: [id number] <+> 1 Start [facility] Endo - Time [...] Modified By: Mara Shannon, MGR-NURSING 04/05/22 10:43:30 [facility] Endo - Time Out Audit 04/05/22 10:43:30 Unindentured Apprentice: [id number] Modifier: [id number] 1 <*> Procedure to be Performed Colonoscopy 04/05/22 10:36:09 Unindentured Apprentice: [id number] Modifier: [id number] 1 <+> Beta Nas Administered 1 <*> [...] patient position Case Comments <None> Finalized By: Wanblee, Mary Kay, RN Document Signatures Signed By: Mara Shannon, R-NURSING 04/05/22 10:54 Mary Kay Pizano RN 04/05/22 15:42 Unfinalized History Date/Time Username Reason for Unfinalizing Freetext Reason for Unfinalizing 04/05/22 15:42 [id number] Finish Documentation Electronically signed by [facility], [facility] Conversion Insert Molding Operator Cerner at 03/06/2023 7:36 PM CDT documented in this encounter Plan of Treatment Upcoming Encounters Date Type Department Care Team (Late st Contact Info) Description 09/25/2025 11:30 AM EST Office Visit [facility] Gastroenterology [address] [facility] [address] [place] [address] Carlos Ramirez MD [address] [place] [address] documented as of this encounter Visit Diagnoses Not on filedocumented in this encounter Care Teams Telesales Team Leader Relationship Specialty Start Date End Date Hammad Tiwari MD [address] [place] [address] PCP - General Adolescent Medicine 03/15/23 documented as of this encounter
--- OUTSIDE RECORDS SUMMARY | 2025-07-04 09:35 | XMS_ITS | Encounter Summary ---
Author Organization [facility] Address [address] [place] [phone] Care Team Providers Care Web Applications Programmer Name Role Phone Mitra Sargent APRN Primary Care Provid er Encounter Details Date Type Department Care Team (Late Contact Info) Description 06/11/2025 Results Follow-Up [facility] [address] [phone] Cecily Hanson APRN [address] [phone] Social History Tobacco Use Types Packs/Day Years [...] Description 08/20/2025 2:00 PM EDT Office Visit [facility] [address] [address] Cecily Hanson APRN [address] [phone] 11/18/2025 1:30 PM EST Office Visit [facility] 330 [facility] [address] [place] [address] David Zarate MD 330 [facility] [address] [place] [address] documented as of this encounter Goals Goal Patient Goal Type Associated Problems Recent Progress Patient-Stated? Author Specialty Pharmacy General Goal General On track( 025 12:51 PM EDT) No Fritz Pack, PharmD Note: Reduce number of flares and pain score. 2.20.25: Patient has had great reduction of pain in joints as well as remission of crohns 8.7.25: Patient reports similar relief as assessment from December documented as of this encounter Visit Diagnoses Not on filedocumented in this encounter Care Teams Web Applications Programmer Relationship Specialty Start Date End Date Mitra Sargent APRN [address] [facility] [address] [place] [address] PCP - General Family Medicine 06/18/24 documented as of this encounter
--- OUTSIDE RECORDS SUMMARY | 2025-07-04 09:35 | XMS_ITS | Encounter Summary ---
Author Organization [employer] ([place], [place], [place]) Address [address] [place] [address] Care Team Providers Care Hazardous Waste Material Technician Name Role Phone Hammad Tiwari MD Primary Care Provider [phone] Encounter Details Date Type Department Care Team (Late st Contact Info) Description 04/05/2022 Transcribed Document [facility] Family Medicine [address] [place] [address] ProviderMichelle MD [address] [place] [address] Social History Tobacco Use Types Packs/Day Years Used Date Smoking Tobacco: Never Assessed Family and Community Support Answer Billy e Recorded Help with Day to Day Activities Not on file 12/09/2023 Feeling Lonely or Isolated Not on file 12/09 Educational Attainment Answer Date Elton rded Speak language other than Chadian at home Not on file 12/09/2023 Want [...] Source : Stated Height Entry Format : Guthrie Height, Feet : 5 ft(Converted to: 152 cm, 60 Inch) Height, Inches : 1 Inch(Converted to: 0 ft 1 Inch, 2.54 cm) Clinical Height : 154.94 cm Weight Source, ED : Standing scale Weight Entry Format : Guthrie Weight, Pounds : 191 lb Clinical Dosing Weight : 86.82 kg Body Surface Area (BSA) : 1.85 m2 Body Mass Index : 36.2 kg/m2 (HI) [place] Body Weight (IBW) : 47.45 kg Rosa Maria Beckett Rn - 04/05/2022 10:09 EDT Electronically signed by Leni [facility] Conversion Telephone Assembler Cerner at 03/06/2023 7:31 PM CDT documented in this encounter Plan of Treatment Upcoming Encounters Date Type Department Care Team (Late st Contact Info) Description 09/25/2025 11:30 AM EST Office Visit [facility] Gastroenterology [email or web address] [facility] [address] [place] [address] Carlos Ramirez MD [address] [place] [address] documented as of this encounter Visit Diagnoses Not on filedocumented in this encounter Care Teams Hazardous Waste Material Technician Relationship Specialty Start Date End Date Hammad Tiwari MD [address] [place] [address] PCP - General Adolescent Medicine 03/15/23 documented as of this encounter
--- OUTSIDE RECORDS SUMMARY | 2025-07-04 09:35 | XMS_ITS | Clinical Summary ---
Author Organization [employer] ([place], [place]) Address [address] [place] [address] Care Team Providers Care Spiral Tube Winder Helper Name Role Phone Hammad Tiwari MD Primary Care Provider [phone] Allergies Active Allergy Reactions Criticality Noted Date [...] the lumbar spine This is the biggest wrecker driver of her pain right now. Her [...] Type Department Care Team Description 06/18/2025 Telephone [facility] Gastroenterology [address] [facility] [address] [place] [address] Asuncion Mathews, MILLER HELPER Abnormal Lab 04/10/2025 Orders Only [facility] [address] [facility] [address] [place] [address] Provider, MD Michelle from Last 3 Months Immunizations Name Administration Dates Next Due Covid 19 Vaccine, Unspecified 11/21/2020 Covid-19 Vaccine MRNA (PF) 18yr+ (Moderna)([id number]) 11/21/2020 Influenza Four-QIV PF 3+YR IM 08/16/2017 Influenza Four-qiv Pf 08/06/2020 Influenza Three-tiv Non-pf 08/29/2021 Influenza, Split 08/21/2021 Influenza, Unspecified 08/21/2001 Family History Medical History [...] Date Elton rded Speak language other than Nauruan at home Not on file 12/09/2023 Want [...] Description 09/25/2025 11:30 AM EST Office Visit [facility] Gastroenterology [address] [employer] [address] [place] [address] Carlos Ramirez MD [address] [facility] [address] [place] [address] Health Maintenance Due Date Last Done Comments [...] Initial AWV [id number] 03/22/2024 COVID-19 VACCINE (7 - 2023-2 5 season) 2024 08/18/2022, 08/18/2022, 09/19/2021, [...] Health Maintenance Insurance MEDICARE PART A B [facility] SUPP Care Teams Spiral Tube Winder Helper Relationship Specialty Start Date End Date Hammad Tiwari MD [address] [place] [address] PCP - General Adolescent Medicine 03/15/23
--- OUTSIDE RECORDS SUMMARY | 2025-07-04 09:35 | XMS_ITS | Encounter Summary ---
Author Organization [employer] ([place], [place], [place], [place]) Address [address] [place] [address] Care Team Providers Care Marble Rubber Name Role Phone Hammad Tiwari MD Primary Care Provider [phone] Encounter Details Date Type Department Care Team (Late st Contact Info) Description 04/05/2022 Transcribed Document [facility] Family Medicine [address] [place] [address] ProviderMichelle MD [address] [place] [address] Social History Tobacco Use Types Packs/Day Years Used Date Smoking Tobacco: Never Assessed Family and Community Support Answer Billy e Recorded Help with Day to Day Activities Not on file 12/09/2023 Feeling Lonely or Isolated Not on file 12/09 Educational Attainment Answer Date Elton rded Speak language other than Kittitian at home Not on file 12/09/2023 Want [...] Historical ProviderMD - 04/05/2022 11:01 AM CDT [address], [place] [id number] CELE LIND :1960 Visit Time:04/05/2022 What to [...] with pathology results in 7-10 days. Where: [address] [place] [address] [address] [place] [id number]- Medications What How Much When Instructions Next [...] you are awake and alert. ??? Take onxp-rvd-tokwstz and prescription medicines only as told by [...] Reviewed: 10/09/2020 Elsevier Patient Education ?? 2020 [employer] Hemorrhoids Hemorrhoids are swollen veins that [...] times a day. General instructions ??? Take yqgg-wgr-vgxroeh and prescription medicines only as told by [...] provider. Document Revised: 11/15/2019 Document Reviewed: 03/29/2019 [employer] Patient Education ?? 2020 [employer]. Diverticulosis Diverticulosis is a condition that develops [...] getting enough exercise. ??? Smoking. ??? Taking nnng-pwt-mwyshtu pain medicines, like aspirin and ibuprofen. ??? [...] these instructions at home: Medicines ??? Take vgvf-wsx-nvegilr and prescription medicines only as told by your health care provider. ??? If told by your health care provider, take a fiber supplement or probiotic. Constipation prevention Your condition may cause constipation. To prevent or treat constipation, you may need to: ??? Drink enough fluid to keep your urine pale yellow. ??? Take jcwn-mzy-vwhqwlw or prescription medicines. ??? Eat foods that [...] provider. Document Revised: 06/05/2020 Document Reviewed: 06/05/2020 [employer] Patient Education ?? 2020 [employer]. Colonoscopy, Adult, Care After This sheet gives [...] soft and easy to digest. ??? Take qrqh-wgq-nqvrird or prescription medicines only as told by [...] provider. Document Revised: 09/12/2020 Document Reviewed: 06/02/2020 [employer] Patient Education ?? 2020 [employer]. Colon Polyps Colon polyps are tissue growths [...] liquor (44 mL). General instructions ??? Take wtqm-vhz-wnbtfvv and prescription medicines only as told by [...] provider. Document Revised: 02/25/2021 Document Reviewed: 02/25/2021 [employer] Patient Education ?? 2020 [employer] Emergency Awareness and Preventative Care STROKE [...] Assistance with quitting is available by contacting 1-678-NMKLNOW. This is a free resource providing counseling, support, and referral. Or you may contact your personal physician. [employer] Suicide Prevention Lifeline: The National Suicide Prevention [...] was given the opportunity to ask questions. Patient/Shop And Alteration Tailor Name: Patient/Shop And Alteration Tailor Signature: Relationship to Patient: Clinician/Hospital Shop And Alteration Tailor Signature: Date: documented in this encounter Plan of Treatment Upcoming Encounters Date Type Department Care Team (Late st Contact Info) Description 09/25/2025 11:30 AM EST Office Visit [facility] Gastroenterology [address] [facility] [address] [place] [address] Carlos Ramirez MD [address] [place] [phone] documented as of this encounter Visit Diagnoses Not on filedocumented in this encounter Care Teams Marble Rubber Relationship Specialty Start Date End Date Hammad Tiwari MD [address] [place] [address] PCP - General Adolescent Medicine 03/15/23 documented as of this encounter
--- OUTSIDE RECORDS SUMMARY | 2025-07-04 09:35 | XMS_ITS | Encounter Summary ---
Author Organization [facility] Address [address] [place] [address] Care Team Providers Care Elevator Examiner And Adjuster Name Role Phone Rosetta Mitra Radha TRACY Primary Care Provid er Encounter Details Date Type Department Care Team (Late st Contact Info) Description 05/09/2025 Telephone [facility] MEDICAL [facility] RHEUMATOLOGY [address] [address] David Zarate MD [address] [address] Social History Tobacco Use Types [...] Received PA request for risedronate, CMM brownlee [id number]. Submitted, then received message that prior authorization was not required. Last rx was sent with incomplete instructions so I am going to resend a corrected rx in case that caused an issue. HUB OK TO RELAY documented in this encounter Plan of Treatment Upcoming Encounters Date Type Department Care Team (Late st Contact Info) Description 08/20/2025 2:00 PM EDT Office Visit [facility] RHEUMATOLOGY [address] [address] Cecily Hanson APRN 330 [facility] 100 [place], [place] [id number] 11/18/2025 1:30 PM EST Office Visit [facility] RHEUMATOLOGY [address] [address] David Zarate MD [address] [phone] documented as of this encounter Goals Goal [...] on filedocumented in this encounter Care Teams Elevator Examiner And Adjuster Relationship Specialty Start Date End Date Mtira Sargent APRN [address] [facility] [address] [place] [address] PCP - General Family Medicine 06/18/24 documented as of this encounter
--- OUTSIDE RECORDS SUMMARY | 2025-07-04 09:35 | XMS_ITS | Clinical Summary ---
Author Organization [facility] Address [address] [place] [address] Care Team Providers Care Corporate Counsel Name Role Phone Mitra Sargent APRN Primary [...] mouth Every Morning Before Breakfast. 4 Active losartan-hydro chlorothiazide (HYZAAR) 100-12.5 MG per tablet Take 1 tablet by mouth Daily. 4 Active ondansetron (ZOFRAN) 4 MG tablet Take 1 tablet by mouth Every 12 (Twelve) Hours As Needed. Active fluocinonide (LIDEX) 0.05 % cream APPLY CREAM EXTERNALLY TO AFFECTED AREA TWICE DAILY NEEDED FOR RASH OR IRRITATION 60 g 4 Active methotrexate 2.5 MG tablet Take 5 tablets by mouth 1 (One) Time Per Week. 60 tablet 1 5 Active cyclobenzaprin e (FLEXERIL) 5 MG tablet Take 1 tablet by mouth At Night As Needed for Muscle Spasms. 90 tablet 1 5 Active risedronate (ACTONEL) 150 MG tablet Take 1 tablet by mouth once every month with a full glass of water and remain in an upright position for the next 30 minutes 3 tablet 1 5 Active Ustekinumab (Stelara) 90 MG/ML solution prefilled syringe Injection Inject 90 mg under the skin into the appropriate area as directed Every 8 (Eight) Weeks. 1 mL 3 5 Active Ustekinumab (Stelara) 90 MG/ML solution prefilled syringe Injection Inject 90 mg under the skin into the appropriate area as directed Every 8 (Eight) Weeks. 1 mL 2 07/02/2025 1:14 PM EDT 5 07/03/20 25 Discontin ued(Reord er) Active Problems Problem Noted Date Diagnosed Date [...] for PsA. She walked a lot at [employer] last month. She has occasional pain. 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 Her pain sounds most consistent with OA of the lumbar spine. continue cyclobenzaprine - Her insurance did not cover PT. 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 Her pain sounds most consistent with OA of the lumbar spine. continue cyclobenzaprine - Her insurance did not cover PT. 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 Her pain [...] Department Care Team Description 06/17/2025 Results Follow-Up [facility] RHEUMATOLOGY [address] [place] [phone] Cecily Hanson, PRISON TEACHER 06/17/2025 Results Follow-Up [facility] RHEUMATOLOGY [address] [place] [phone] Cecily Hanson, PRISON TEACHER 06/11/2025 Results Follow-Up [facility] RHEUMATOLOGY [address] [place] [phone] Cecily Hanson, PRISON TEACHER 06/11/2025 Results Follow-Up [facility] RHEUMATOLOGY [address] [place] [phone] Cecily Hanson, PRISON TEACHER 05/09/[address] [facility] RHEUMATOLOGY [address] [place] [phone] David Zarate MD 04/25/[address] [facility] RHEUMATOLOGY [address] [place] [phone] Cecily Hanson, PRISON TEACHER Prior Authorization (JONATHAN Izaguirre: [id number]- Cyclobenzaprine HCl 5MG tablets) 04/22/[address] [facility] RHEUMATOLOG[facility] [address] [place] [phone] David Zarate MD 04/16/2025 3:00 PM EDT Office Visit [facility] RHEUMATOLOGY [address] [place] [phone] Cecily Hanson APRN Psoriatic arthritis (Primary [...] PM EDT Office Visit [facility] RHEUMATOLOGY [address] [place] [phone] Cecily Hanson APRN [address] [address] 11/18/2025 1:30 PM EST Office Visit [facility] RHEUMATOLOGY [address] [address] David Zarate MD [address] [address] Health Maintenance Due Date Last Done Comments [...] Patient reports similar relief as assessment from February Procedures Procedure Name Priority Date/Time Associated Diagnosis Comments SCANNED - LABS 06/11/2025 SCANNED - LABS 06/11/2025 SCANNED - LABS 06/11/2025 SCANNED - LABS 06/11/2025 SCANNED - DEXA Routine 06/17/2024 2:34 PM EDT from Last 3 Months or Most Recently Relevant to Health Maintenance Results * LABS SCANNED (06/11/2025) Only the most recent of4 resultswithin the time period is included. Cecily Hanson PRISON TEACHER LAB BLOOD ORDERABLES F inal Result * DEXA Scan (06/17/2024 2:34 PM EDT) Anatomical Region Laterality Modality Other Historical Provider MD GERMAN CHART REVIEW TABS Steph l Result from Last 3 Months or Most Recently Relevant to Health Maintenance Insurance [facility] MEDICARE A & B Care Teams Corporate Counsel Relationship Specialty Start Date End Date Mitra Sargent APRN [address] [facility] [address] [facility] [address] [place] [address] PCP - General Family Medicine 06/18/24
--- OUTSIDE RECORDS SUMMARY | 2025-07-04 09:35 | XMS_ITS ---
Author Organization [facility] Address [address] [place] [address] Care Team Providers Care Log Check Scaler Name Role Phone Mitra Sargent APRN Primary Care Provid er Rheumatology Status:Enrolled (Active) Start date:06/18/2024 Enrollment date:06/27/2024 Enrollment reason:New start at Current support & services provided:Clinical Assessment, Refill Coordination , Benefits Investigation, [facility] Disp[facility] Linked medications:Ustekinumab (Active) Linked problems:Psoriatic arthritis (Active) Continued Care and Services Coordination
--- OUTSIDE RECORDS SUMMARY | 2025-07-04 09:35 | XMS_ITS | Encounter Summary ---
Author Organization [employer] ([place], [place], [place], [place]) Address [address] [place] [address] Care Team Providers Care Fast Food Fry Cook Name Role Phone Hammad Tiwari MD Primary Care Provider [phone] Encounter Details Date Type Department Care Team (Late st Contact Info) Description 04/05/2022 Transcribed Document [facility] [place] [address] [place] [address] ProviderMichelle MD [address] [place] [address] Social History Tobacco Use Types Packs/Day Years Used Date Smoking Tobacco: Never Assessed Family and Community Support Answer Billy e Recorded Help with Day to Day Activities Not on file 12/09/2023 Feeling Lonely or Isolated Not on file 12/09 Educational Attainment Answer Date Elton rded Speak language other than Gambian at home Not on file 12/09/2023 Want [...] times a day. General instructions ??? Take zzbg-zym-ogpnapu and prescription medicines only as told by [...] provider. Document Revised: 11/15/2019 Document Reviewed: 03/29/2019 [employer] Patient Education ? 2020 [employer]. Diverticulosis Diverticulosis is a condition that develops [...] getting enough exercise. ??? Smoking. ??? Taking sxbo-pcx-kgvalbu pain medicines, like aspirin and ibuprofen. ??? [...] these instructions at home: Medicines ??? Take urta-sai-ibxnynu and prescription medicines only as told by your health care provider. ??? If told by your health care provider, take a fiber supplement or probiotic. Constipation prevention Your condition may cause constipation. To prevent or treat constipation, you may need to: ??? Drink enough fluid to keep your urine pale yellow. ??? Take ndlf-pkr-iastcrk or prescription medicines. ??? Eat foods that [...] provider. Document Revised: 06/05/2020 Document Reviewed: 06/05/2020 [employer] Patient Education ? 2020 [employer]. Oncology Colon Polyps Colon polyps are tissue [...] liquor (44 mL). General instructions ??? Take rmeb-jsz-gxknehy and prescription medicines only as told by [...] provider. Document Revised: 02/25/2021 Document Reviewed: 02/25/2021 [employer] Patient Education ? 2020 [employer] Pharmacology Monitored Anesthesia Care, Care After [...] you are awake and alert. ??? Take iyrb-mwt-xrelatu and prescription medicines only as told by [...] provider. Document Revised: 07/23/2021 Document Reviewed: 10/09/2020 [employer] Patient Education ? 2020 [employer] Radiology Colonoscopy, Adult, Care After This [...] soft and easy to digest. ??? Take rfjc-bww-wfzbbcq or prescription medicines only as told by [...] provider. Document Revised: 09/12/2020 Document Reviewed: 06/02/2020 [employer] Patient Education ? 2020 [employer]. documented in this encounter Plan of Treatment Upcoming Encounters Date Type Department Care Team (Late st Contact Info) Description 09/25/2025 11:30 AM EST Office Visit [facility] [address] [facility] [address] [place] [phone] Carlos Ramirez MD [address] [place] [address] documented as of this encounter Visit Diagnoses Not on filedocumented in this encounter Care Teams Fast Food Fry Cook Relationship Specialty Start Date End Date Hammad Tiwari MD [address] [place] [address] PCP - General Adolescent Medicine 03/15/23 documented as of this encounter
--- OUTSIDE RECORDS SUMMARY | 2025-07-04 09:35 | XMS_ITS | Encounter Summary ---
Author Organization [facility] Address [address] [place] [phone] Care Team Providers Care Renewals Representative Name Role Phone Mitra Sargent APRN Primary Care Provid er Encounter Details Date Type Department Care Team (Late Contact Info) Description 06/11/2025 Results Follow-Up [facility] RHEUMATOLOGY [address] [address] Cecily Hanson APRN [address] [phone] Social History Tobacco Use Types Packs/Day Years [...] Description 08/20/2025 2:00 PM EDT Office Visit [facility] RHEUMATOLOGY [address] [address] Cecily Hanson APRN [address] [phone] 11/18/2025 1:30 PM EST Office Visit [facility] RHEUMATOLOGY 330 [facility] [address] [place] [address] David Zarate MD 330 [facility] [address] [place] [address] documented as of this encounter Goals Goal [...] on filedocumented in this encounter Care Teams Renewals Representative Relationship Specialty Start Date End Date Mitra Sargent APRN [address] [facility] [address] [place] [address] PCP - General Family Medicine 06/18/24 documented as of this encounter
--- OUTSIDE RECORDS SUMMARY | 2025-07-04 09:35 | XMS_ITS | Encounter Summary ---
Author Organization [facility] Address [address] [place] [phone] Care Team Providers Care Manager Home Name Role Phone Mitra Sargent APRN Primary Care Provid er Encounter Details Date Type Department Care Team (Late Contact Info) Description 03/19/2025 Results Follow-Up [facility] RHEUMATOLOGY [address] [address] Cecily Hanson APRN [address] [phone] Social History Tobacco Use Types Packs/Day Years [...] Description 08/20/2025 2:00 PM EDT Office Visit [facility] RHEUMATOLOGY [address] [address] Cecily Hanson APRN [address] [phone] 11/18/2025 1:30 PM EST Office Visit [facility] RHEUMATOLOGY 330 [facility] 100 [place] [address] David Zarate MD 330 [facility] [address] [place] [address] documented as of this encounter Goals Goal [...] filedocumented in this encounter Care Teams Manager Home Relationship Specialty Start Date End Date Mitra Sargent APRN [address] [place] [facility] [address] [place] [address] PCP - General Family Medicine 06/18/24 documented as of this encounter
--- OUTSIDE RECORDS SUMMARY | 2025-07-04 09:35 | XMS_ITS | Referral Summary ---
Author Organization [employer] ([place], [place]) Address [address] [place] [address] Care Team Providers Care Water Resource Manager Name Role Phone Hammad Tiwari MD Primary Care Provider [phone] Encounters Date Type Department Care Team Description 06/18/2025 Telephone [facility] Gastroenterology [address] [facility] [address] [place] [address] Asuncion Mathews, IMMIGRATION CONSULTANT Abnormal Lab 04/10/2025 Orders Only [facility] Gastroenterology [address] [place] [address] Provider, MD Michelle from Last 3 Months Allergies Active Allergy [...] the lumbar spine This is the biggest meals on wheels driver of her pain right now. Her [...] 08/29/2021 Influenza, Split 08/21/2021 Influenza, Unspecified 08/21/2001 Social History Tobacco Use Types Packs/Day [...] Date Elton rded Speak language other than Togolese at home Not on file 12/09/2023 Want [...] Description 09/25/2025 11:30 AM EST Office Visit [facility] Gastroenterology [address] [address] Carlos Ramirez MD [address] [place] [address] Procedures Procedure Name Priority Date/Time Associated Diagnosis Comments HM COLONOSCOPY Routine 04/05/2022 from Last 3 Months or Most Recently Relevant to Health Maintenance Results * HM COLONOSCOPY (04/05/2022) Frances Samson MD HEALTH MAINTENANCE Final Resul t from Last 3 Months or Most Recently Relevant to Health Maintenance Insurance [place] [address] [place] [address] Care Teams Water Resource Manager Relationship Specialty Start Date End Date Hammad Tiwari MD [address] [place] [address] PCP - General Adolescent Medicine 03/15/23
--- OUTSIDE RECORDS SUMMARY | 2025-07-04 09:35 | XMS_ITS | Encounter Summary ---
Author Organization [employer] ([place], [place]) Address [address] [place] [address] Care Team Providers Care Clinical Admissions Manager Name Role Phone Hammad Tiwari MD Primary Care Provider [phone] Encounter Details Date Type Department Care Team (Late st Contact Info) Description 04/05/2022 Transcribed Document [facility] [place] Family Medicine [address] [place] [address] ProviderMichelle MD [address] [place] [address] Social History Tobacco Use Types Packs/Day Years Used Date Smoking Tobacco: Never Assessed Family and Community Support Answer Billy e Recorded Help with Day to Day Activities Not on file 12/09/2023 Feeling Lonely or Isolated Not on file 12/09 Educational Attainment Answer Date Elton rded Speak language other than Algerian at home Not on file 12/09/2023 Want [...] selected or recorded. Procedure history: Abdominal hernia (348796658). Tubal ligation (792113012). Laparoscopic cholecystostomy (6767837786). Social History Social & Psychosocial Habits No [...] BID, 0 Refill(s) Humira: 40 mg, SubCutaneous, [id number], 0 Refill(s) Multiple Vitamins oral capsule: 1 [...] disease of small intestine / SNOMED CT 62413020 / Confirmed Psoriatic arthritis / SNOMED CT 426342659 / Confirmed Hypertension / SNOMED CT 6700515269 / Confirmed Osteoarthritis / SNOMED CT 0207468286 / Confirmed, Active Problems (4) Crohns disease [...] No deformity, Normal gait. Integumentary: Warm, Dry, [place], No rash. Integumentary exam: Face, Chest, Arm, [...] Description 09/25/2025 11:30 AM EST Office Visit [facility] Gastroenterology [address] [facility] [address] [place] [phone] Carlos Ramirez MD [address] [place] [address] documented as of this encounter Visit Diagnoses Not on filedocumented in this encounter Care Teams Clinical Admissions Manager Relationship Specialty Start Date End Date Hammad Tiwari MD [address] [place] [address] PCP - General Adolescent Medicine 03/15/23 documented as of this encounter
--- OUTSIDE RECORDS SUMMARY | 2025-07-04 09:35 | XMS_ITS | Encounter Summary ---
Author Organization [employer] ([place], [place]) Address [address] [place] [address] Care Team Providers Care Ground Intelligence Officer Name Role Phone Hammad Tiwari MD Primary Care Provider [phone] Encounter Details Date Type Department Care Team (Late st Contact Info) Description 04/05/2022 Transcribed Document [facility] [place] Family Medicine [address] [place] [address] ProviderMichelle MD [address] [place] [address] Social History Tobacco Use Types Packs/Day Years Used Date Smoking Tobacco: Never Assessed Family and Community Support Answer Billy e Recorded Help with Day to Day Activities Not on file 12/09/2023 Feeling Lonely or Isolated Not on file 12/09 Educational Attainment Answer Date Elton rded Speak language other than Bangladeshi at home Not on file 12/09/2023 Want [...] Eduardo Jensen/Sex: 1960 Female Med Rec #: [id number] Physician: KEMAR FELDER MD-GAE Financial #: [id number] Pt. Type: E Room/Bed: [facility] Admit/Disch: 04/05/22 09:17:00 - Institution: [facility] [...] Description 09/25/2025 11:30 AM EST Office Visit [facility] Gastroenterology [address] [email or web address] [facility] [address] [place] [address] Carlos Ramirez MD [email or web address] [place] [address] documented as of this encounter Visit Diagnoses Not on filedocumented in this encounter Care Teams Ground Intelligence Officer Relationship Specialty Start Date End Date Hammad Tiwari MD [address] [place] [address] PCP - General Adolescent Medicine 03/15/23 documented as of this encounter
--- OUTSIDE RECORDS SUMMARY | 2025-07-04 09:35 | XMS_ITS | Encounter Summary ---
Author Organization [facility] Address [address] [place] [phone] Care Team Providers Care Seasonal Tax Preparer Name Role Phone Mitra Sargent APRN Primary Care Provid er Encounter Details Date Type Department Care Team (Late Contact Info) Description 06/17/2025 Results Follow-Up [facility] RHEUMATOLOGY [address] [address] Cecily Hanson APRN [address] [phone] Social History Tobacco Use Types Packs/Day Years [...] Visit [facility] RHEUMATOLOGY [address] [address] Cecily Hanson APRN [address] [phone] 11/18/2025 1:30 PM EST Office Visit [facility] RHEUMATOLOGY 330 [facility] 100 [place] [address] David Zarate MD 330 [facility] [address] [place] [address] documented as of this encounter Goals Goal [...] on filedocumented in this encounter Care Teams Seasonal Tax Preparer Relationship Specialty Start Date End Date Mitra Sargent APRN [address] [place] [facility] [address] [place] [address] PCP - General Family Medicine 06/18/24 documented as of this encounter
--- OUTSIDE RECORDS SUMMARY | 2025-07-04 09:35 | XMS_ITS | Encounter Summary ---
Author Organization [employer] ([place], [place], [place]) Address [address] [place] [address] Care Team Providers Care Educational Administration Teacher Name Role Phone Hammad Tiwari MD Primary Care Provider [phone] Encounter Details Date Type Department Care Team (Late st Contact Info) Description 04/05/2022 Transcribed Document [facility] [place] [address] [place] [address] ProviderMichelle MD [address] [place] [address] Social History Tobacco Use Types [...] Historical ProviderMD - 04/05/2022 11:03 AM CDT [address], [place] [phone] CELE LIND :1960 Visit Time:04/05/2022 What to [...] with pathology results in 7-10 days. Where: [address] [place] [address] [address] [place] [id number]- Medications What How Much When Instructions Next [...] you are awake and alert. ??? Take sxoe-fbz-rynwhwv and prescription medicines only as told by [...] Reviewed: 10/09/2020 [employer] Patient Education ?? 2020 [employer] Hemorrhoids Hemorrhoids are swollen veins that [...] times a day. General instructions ??? Take asvg-lvm-bhbibry and prescription medicines only as told by [...] provider. Document Revised: 11/15/2019 Document Reviewed: 03/29/2019 [employer] Patient Education ?? 2020 [employer]. Diverticulosis Diverticulosis is a condition that develops [...] getting enough exercise. ??? Smoking. ??? Taking pfkh-fwk-zrmzdjo pain medicines, like aspirin and ibuprofen. ??? [...] these instructions at home: Medicines ??? Take jcqt-zpi-jbxftow and prescription medicines only as told by your health care provider. ??? If told by your health care provider, take a fiber supplement or probiotic. Constipation prevention Your condition may cause constipation. To prevent or treat constipation, you may need to: ??? Drink enough fluid to keep your urine pale yellow. ??? Take mmpn-qxj-tuoaifm or prescription medicines. ??? Eat foods that [...] provider. Document Revised: 06/05/2020 Document Reviewed: 06/05/2020 [employer] Patient Education ?? 2020 [employer]. Colonoscopy, Adult, Care After This sheet gives [...] soft and easy to digest. ??? Take oflr-kir-arvuolc or prescription medicines only as told by [...] provider. Document Revised: 09/12/2020 Document Reviewed: 06/02/2020 [employer] Patient Education ?? 2020 [employer]. Colon Polyps Colon polyps are tissue growths [...] liquor (44 mL). General instructions ??? Take tull-hkx-idalaga and prescription medicines only as told by [...] provider. Document Revised: 02/25/2021 Document Reviewed: 02/25/2021 [employer] Patient Education ?? 2020 [employer] Emergency Awareness and Preventative Care STROKE [...] Assistance with quitting is available by contacting 0-651-JCTBNOW. This is a free resource providing counseling, support, and referral. Or you may contact your personal physician. [employer] Suicide Prevention Lifeline: The National Suicide Prevention [...] was given the opportunity to ask questions. Patient/Compressor Assembler Name: Patient/Compressor Assembler Signature: Relationship to Patient: Clinician/Hospital Compressor Assembler Signature: Date: documented in this encounter Plan of Treatment Upcoming Encounters Date Type Department Care Team (Late st Contact Info) Description 09/25/2025 11:30 AM EST Office Visit [facility] Gastroenterology [address] [facility] [address] [place] [address] Carlos Ramirez MD [address] [place] [phone] documented as of this encounter Visit Diagnoses Not on filedocumented in this encounter Care Teams Educational Administration Teacher Relationship Specialty Start Date End Date Hammad Tiwari MD [address] [place] [address] PCP - General Adolescent Medicine 03/15/23 documented as of this encounter
--- OUTSIDE RECORDS SUMMARY | 2025-07-04 09:35 | XMS_ITS | Encounter Summary ---
Author Organization [facility] Address [address] [place] [id number] Care Team Providers Care Credit Report Checker Name Role Phone Mitra Sargent APRN Primary Care Provid er Encounter Details Date Type Department Care Team (Late Contact Info) Description 06/17/2025 Results Follow-Up [facility] RHEUMATOLOGY [address] [address] Cecily Hanson APRN [address] [id number] Social History Tobacco Use Types Packs/Day Years [...] Description 08/20/2025 2:00 PM EDT Office Visit [facility] RHEUMATOLOGY [address] [address] Cecily Hanson APRN [address] [id number] 11/18/2025 1:30 PM EST Office Visit [facility] RHEUMATOLOGY 330 [facility] [address] [place] [address] David Zarate MD 330 [facility] [address] [place] [address] documented as of this encounter Goals Goal [...] on filedocumented in this encounter Care Teams Credit Report Checker Relationship Specialty Start Date End Date Mitra Sargent APRN [address] [facility] [address] [place] [address] PCP - General Family Medicine 06/18/24 documented as of this encounter
--- OUTSIDE RECORDS SUMMARY | 2025-07-04 09:36 | XMS_ITS | Encounter Summary ---
Author Organization [employer] ([place], [place], [place], [place]) Address [address] [place] [address] Care Team Providers Care Manager Local Name Role Phone Hammad Tiwari MD Primary Care Provider [phone] Reason for Visit * Reason Onset Date Comments Abnormal Lab 06/18/2025 Encounter Details Date Type Department Care Team (Late st Contact Info) Description 06/18/2025 Telephone [facility] Gastroenterology [address] [facility] [facility] [address] [place] [address] Asuncion Mathews, [facility] Abnormal Lab Social History Tobacco Use Types [...] Date Elton rded Speak language other than Macanese at home Not on file 12/09/2023 Want [...] Description 09/25/2025 11:30 AM EST Office Visit [facility] Gastroenterology [address] [facility] [address] [place] [address] Carlos Ramirez MD [address] [place] [address] documented as of this encounter Visit Diagnoses Not on filedocumented in this encounter Care Teams Manager Local Relationship Specialty Start Date End Date Hammad Tiwari MD [address] [place] [address] PCP - General Adolescent Medicine 03/15/23 documented as of this encounter
== END 2025-07-04 23:59 | disposition home or self-care (01) ==
LOC: RAD 09:33
PROVIDERS: PCP Nurse Practitioner Family; Visit Provider Nurse Practitioner Family
DX: Z12.31 Encounter for screening mammogram for malignant neoplasm of breast (principal); R92.323 Mammographic fibroglandular density, bilateral breasts
CPT/HCPCS: 77063; 77067

== ENCOUNTER 2025-07-09 08:00 | Outpatient (CLI) | payer MEDICARE, BC, SELFPAY ==
--- OUTSIDE RECORDS SUMMARY | 2025-07-09 08:04 | XMS_ITS | Encounter Summary ---
Author Organization [employer] ([place], [place]) Address [address] [place] [address] Care Team Providers Care Medical Case Worker Name Role Phone Hammad Tiwari MD Primary Care Provider [phone] Encounter Details Date Type Department Care Team (Late st Contact Info) Description 04/05/2022 Transcribed Document [facility] [place] Family Medicine [address] [place] [address] ProviderMichelle MD [address] [place] [address] Social History Tobacco Use Types Packs/Day Years Used Date Smoking Tobacco: Never Assessed Family and Community Support Answer Iblly e Recorded Help with Day to Day Activities Not on file 12/09/2023 Feeling Lonely or Isolated Not on file 12/09 Educational Attainment Answer Date Elton rded Speak language other than Andorran at home Not on file 12/09/2023 Want [...] Historical ProviderMD - 04/05/2022 11:01 AM CDT [address], [place] [id number] CELE LIND :1960 Visit Time:04/05/2022 What to [...] with pathology results in 7-10 days. Where: [address] [place] [address] [address] [place] [id number]- Medications What How Much When Instructions Next [...] you are awake and alert. ??? Take cuml-tpo-ckiyhci and prescription medicines only as told by [...] Reviewed: 10/09/2020 Elsevier Patient Education ?? 2020 [employer] Hemorrhoids Hemorrhoids are swollen veins that [...] times a day. General instructions ??? Take hsjb-tlg-beqzwof and prescription medicines only as told by [...] provider. Document Revised: 11/15/2019 Document Reviewed: 03/29/2019 [employer] Patient Education ?? 2020 [employer]. Diverticulosis Diverticulosis is a condition that develops [...] getting enough exercise. ??? Smoking. ??? Taking lxfe-jpw-fodbihh pain medicines, like aspirin and ibuprofen. ??? [...] these instructions at home: Medicines ??? Take nwzi-kaq-xeikmdb and prescription medicines only as told by your health care provider. ??? If told by your health care provider, take a fiber supplement or probiotic. Constipation prevention Your condition may cause constipation. To prevent or treat constipation, you may need to: ??? Drink enough fluid to keep your urine pale yellow. ??? Take ezav-bue-thdtlob or prescription medicines. ??? Eat foods that [...] provider. Document Revised: 06/05/2020 Document Reviewed: 06/05/2020 [employer] Patient Education ?? 2020 [employer]. Colonoscopy, Adult, Care After This sheet gives [...] soft and easy to digest. ??? Take xeqg-dgj-bufidxi or prescription medicines only as told by [...] provider. Document Revised: 09/12/2020 Document Reviewed: 06/02/2020 [employer] Patient Education ?? 2020 [employer]. Colon Polyps Colon polyps are tissue growths [...] liquor (44 mL). General instructions ??? Take dzvf-oqx-gdgrnff and prescription medicines only as told by [...] provider. Document Revised: 02/25/2021 Document Reviewed: 02/25/2021 [employer] Patient Education ?? 2020 [employer] Emergency Awareness and Preventative Care STROKE [...] Assistance with quitting is available by contacting 3-226-ZSYLNOW. This is a free resource providing counseling, support, and referral. Or you may contact your personal physician. [employer] Suicide Prevention Lifeline: The National Suicide Prevention [...] was given the opportunity to ask questions. Patient/Mobile Home Lot Utility Worker Name: Patient/Mobile Home Lot Utility Worker Signature: Relationship to Patient: Clinician/Hospital Mobile Home Lot Utility Worker Signature: Date: Electronically signed by Leni [facility] Conversion Agricultural Real Estate Agent Cerner at 03/06/2023 7:49 PM CDT documented in this encounter Plan of Treatment Not on file documented as of this encounter Visit Diagnoses Not on filedocumented in this encounter Care Teams Medical Case Worker Relationship Specialty Start Date End Date Hammad Tiwari MD [address] [place] [address] PCP - General Adolescent Medicine 03/15/23 documented as of this encounter
--- OUTSIDE RECORDS SUMMARY | 2025-07-09 08:04 | XMS_ITS | Clinical Summary ---
Author Organization [facility] Address [address] [place] [address] Care Team Providers Care Negative Turner Name Role Phone Mitra Sargent APRN Primary [...] for PsA. She walked a lot at [employer] [place] last month. She has occasional pain. XR [...] Department Care Team Description 06/17/2025 Results Follow-Up [facility] RHEUMATOLOGY [address] [place] [phone] Cecily Hanson, RN GYN 06/17/2025 Results Follow-Up [facility] RHEUMATOLOGY [address] [place] [phone] Cecily Hanson, RN GYN 06/11/2025 Results Follow-Up [facility] RHEUMATOLOGY [address] [place] [phone] Cecily Hanson, RN GYN 06/11/2025 Results Follow-Up [facility] RHEUMATOLOGY [address] [place] [phone] Cecily Hanson, RN GYN 05/09/2025 Telephone [facility] RHEUMATOLOGY [address] [place] [phone] David Zarate MD 04/25/2025 Telephone [facility] RHEUMATOLOGY [address] [place] [phone] Cecily Hanson, RN GYN Prior Authorization (JONATHAN Izaguirre: [id number]- Cyclobenzaprine HCl 5MG tablets) 04/22/2025 Refill [facility] RHEUMATOLOGY [address] [place] [phone] David Zarate MD 04/16/2025 3:00 PM EDT Office Visit [facility] RHEUMATOLOGY [address] [place] [phone] Cecily Hanson APRN Psoriatic arthritis (Primary [...] Office Visit [facility] RHEUMATOLOGY [address] [place] [phone] Cecily Hanson APRN [address] [address] 11/18/2025 1:30 PM EST Office Visit [facility] RHEUMATOLOGY [address] [address] David Zarate MD [address] [address] Health Maintenance Due Date Last [...] the time period is included. Cecily Hanson RN GYN LAB BLOOD ORDERABLES F inal Result * DEXA Scan (06/17/2024 2:34 PM EDT) Anatomical Region Laterality Modality Other Historical Provider MD GERMAN CHART REVIEW TABS Steph l Result from Last 3 Months or Most Recently Relevant to Health Maintenance Insurance [facility] MEDICARE A & B Care Teams Negative Turner Relationship Specialty Start Date End Date Mitra Sargent APRN [address] [facility] [address] [facility] [address] [place] [address] PCP - General Family Medicine 06/18/24
--- OUTSIDE RECORDS SUMMARY | 2025-07-09 08:04 | XMS_ITS | Encounter Summary ---
Author Organization [facility] ([place], [place], [place]) Address [address] [place] [address] Care Team Providers Care Barbering Teacher Name Role Phone Hammad Tiwari MD Primary Care Provider [phone] Encounter Details Date Type Department Care Team (Late st Contact Info) Description 04/05/2022 Transcribed Document [facility] [place] [address] [place] [address] ProviderMichelle MD [address] [place] [address] Social History Tobacco Use Types Packs/Day Years Used Date Smoking Tobacco: Never Assessed Family and Community Support Answer Billy e Recorded Help with Day to Day Activities Not on file 12/09/2023 Feeling Lonely or Isolated Not on file 12/09 Educational Attainment Answer Date Elton rded Speak language other than Belizean at home Not on file 12/09/2023 Want [...] selected or recorded. Procedure history: Abdominal hernia (303776531). Tubal ligation (977696143). Laparoscopic cholecystostomy (9303138946). Social History Social & Psychosocial Habits No [...] BID, 0 Refill(s) Humira: 40 mg, SubCutaneous, X1Iyohx, 0 Refill(s) Multiple Vitamins oral capsule: 1 [...] disease of small intestine / SNOMED CT 80593387 / Confirmed Psoriatic arthritis / SNOMED CT 642478514 / Confirmed Hypertension / SNOMED CT 8794738197 / Confirmed Osteoarthritis / SNOMED CT 4228436488 / Confirmed, Active Problems (4) Crohns disease [...] No deformity, Normal gait. Integumentary: Warm, Dry, Tama, No rash. Integumentary exam: Face, Chest, Arm, [...] on filedocumented in this encounter Care Teams Barbering Teacher Relationship Specialty Start Date End Date Hammad Tiwari MD [address] [place] [address] PCP - General Adolescent Medicine 03/15/23 documented as of this encounter
--- OUTSIDE RECORDS SUMMARY | 2025-07-09 08:04 | XMS_ITS | Encounter Summary ---
Author Organization [employer] ([place], [place], [place]) Address [address] [place] [address] Care Team Providers Care Machine Fur Cleaner Name Role Phone Hammad Tiwari MD Primary Care Provider [phone] Encounter Details Date Type Department Care Team (Late st Contact Info) Description 04/05/2022 Transcribed Document [facility] [place] Family Medicine [address] [place] [address] ProviderMichelle MD [address] [place] [address] Social History Tobacco Use Types Packs/Day Years Used Date Smoking Tobacco: Never Assessed Family and Community Support Answer Billy e Recorded Help with Day to Day Activities Not on file 12/09/2023 Feeling Lonely or Isolated Not on file 12/09 Educational Attainment Answer Date Elton rded Speak language other than Lithuanian at home Not on file 12/09/2023 Want [...] Name: CELE LIND Eduardo Cee./Sex: 1960 Female [facility] Rec #: [id number] Physician: KEMAR FELDER MD-GAE Financial #: [id number] Pt. Type: Room/Bed: [facility] Admit/Disch: 04/05/22 09:17:00 - Institution: [facility] [place] Endo - Case Attendance Entry 1 Entry 2 Entry 3 Case Attendee KEMAR FELDER MD-GAE Zimmer, Courtney, Edmundson, Stephanie, RN MGR-NURSING Role Performed Surgeon/Proceduralist, Peripheral Edp Equipment Operator, First Peripheral Edp Equipment Operator, Second First Time In 04/05/22 10:26:00 [...] MELANIE MEHTA Reed, Rashell, ROTH, GAVIN, MD-ANS CAST IRON DRAIN PIPE LAYER VALET Role Performed CAST IRON DRAIN PIPE LAYER/Nurse Roll Slicing Machine Tender Scrub, First Anesthesiologist of Record Time In 04/05/22 10:26:00 04/05/22 10:26:00 04/05/22 10:26:00 Time Out 04/05/22 10:54:00 04/05/22 10:54:00 04/05/22 10:54:00 Procedure Colonoscopy, Colon Colonoscopy, Colon Colonoscopy, Colon Biopsy Biopsy Biopsy Other Attendee Superficial Wound Closed By: Last Modified By: Mara Shannon Zimmer, Courtney, Zimmer, Courtney, MGR-NURSING 04/05/22 MGR-NURSING 04/05/22 MGR-NURSING 04/05/22 10:53:08 10:53:08 10:53:08 [facility] Endo - Case Attendance Audit 04/05/22 10:53:08 Hazardous Materials Waste Technician: [id number] Modifier: [id number] 1 <+> Time Out 1 <*> Procedure Colonoscopy, Colon Biopsy 2 <+> Time Out 2 <*> Procedure Colonoscopy, Colon Biopsy 3 <+> Time Out 3 <*> Procedure Colonoscopy, Colon Biopsy 4 <+> Time Out 4 <*> Procedure Colonoscopy, Colon Biopsy 5 <+> Time Out 5 <*> Procedure Colonoscopy, Colon Biopsy 6 <+> Time Out 6 <*> Procedure Colonoscopy, Colon Biopsy 04/05/22 10:43:28 Hazardous Materials Waste Technician: [id number] Modifier: [id number] 1 <*> Procedure Colonoscopy 2 <*> Procedure Colonoscopy 3 <*> Procedure Colonoscopy 4 <*> Procedure Colonoscopy 5 <*> Procedure Colonoscopy 6 <*> Procedure Colonoscopy 04/05/22 10:30:52 Hazardous Materials Waste Technician: [id number] Modifier: [id number] <+> 1 Procedure 2 <*> Procedure Colonoscopy [...] Endo - Case Times Audit 04/05/22 10:53:07 Hazardous Materials Waste Technician: [id number] Modifier: [id number] <+> 1 Out Room Time <+> 1 Stop Time <+> 1 Stop Time 04/05/22 10:32:28 Hazardous Materials Waste Technician: [id number] Modifier: [id number] <+> 1 Start Time 04/05/22 10:30:06 Hazardous Materials Waste Technician: [id number] Modifier: [id number] <+> 1 Start Time [facility] End[facility] - [...] 04/05/22 10:31:03 E Endo - General Case Dairy Farmer 1 Case Information OR Endo 01 [facility] Case Level 1 Room Verified Yes Wound Class 2 - Clean-Contaminated Specialty Gastroenterology Anesthesia Type MAC ASA Class 3 Diagnosis Preop Diagnosis Crohn's Postop Diagnosis hemorrhoids, diverticulosis, Crohn's Wound Class Definitions Last Modified By: Mara Shannon MGR-NURSING 04/05/22 10:53:34 [facility] Endo - General Case Data Audit 04/05/22 10:53:34 Hazardous Materials Waste Technician: [id number] Modifier: [id number] <+> 1 Postop Diagnosis [facility] Endo - [...] Shannon R-ABIEL, MELANIE MEHTA CRNA, Reed, Rashell, VALET Position Verified Positioning Yes Verified by Anesthesia Positioning Yes Verified by Surgeon Last Modified By: Mara Shannon MGR-ABIEL 04/05/22 10:43:30 [facility] Endo - Patient Positioning Audit 04/05/22 10:43:30 Hazardous Materials Waste Technician: [id number] Modifier: [id number] 1 <*> Procedure Colonoscopy [facility] Endo - [...] Modified By: Mara Shannon MGR-NURSING 04/05/22 10:53:50 [facility] [place] [facility] Endo - Sign Out Audit 04/05/22 10:53:50 Hazardous Materials Waste Technician: [id number] Modifier: [id number] <+> 1 RN Sign Out Signature Date/Time [facility] [place] Endo - Surgical Procedures Entry 1 Entry 2 Procedure Colonoscopy Colon Biopsy Modifiers Additional terminal ileum, left, Procedure right Description Primary Procedure Yes No Primary Surgeon KEMAR FELDER MD-GAE WOLFORD, TRACEY, MD-GAE Start 04/05/22 10:32:00 04/05/22 10:32:00 Stop 04/05/22 10:52:00 04/05/22 10:52:00 Physician States 04/05/22 10:37:00 04/05/22 10:37:00 Cecum Reached Anesthesia Type [facility] Specialty Gastroenterology Gastroenterology Wound Class 2 - Clean-Contaminated 2 - Clean-Contaminated Last Modified By: Mara Shannon Zimmer, Courtney, MGR-NURSING 04/05/22 MGR-NURSING 04/05/22 10:53:54 10:53:54 [facility] [place] Endo - Surgical Procedures Audit 04/05/22 10:53:54 Hazardous Materials Waste Technician: [id number] Modifier: [id number] <+> 1 Stop <+> 2 Stop 04/05/22 10:45:58 Hazardous Materials Waste Technician: [id number] Modifier: [id number] 2 <*> Procedure Colon Biopsy 2 <*> Additional Procedure Description terminal ileum 04/05/22 10:43:26 Hazardous Materials Waste Technician: [id number] Modifier: [id number] <+> 2 Procedure <+> 2 Primary Procedure <+> 2 Primary Surgeon <+> 2 Specialty <+> 2 Start <+> 2 Wound Class <+> 2 Anesthesia Type <+> 2 Additional Procedure Description <+> 2 Physician States Cecum Reached 04/05/22 10:41:51 Hazardous Materials Waste Technician: [id number] Modifier: [id number] 1 <*> Procedure Colonoscopy 1 <+> Wound Class 1 <+> Physician States Cecum Reached 04/05/22 10:33:49 Hazardous Materials Waste Technician: [id number] Modifier: [id number] <+> 1 Start [facility] Endo - Time [...] Modified By: Mara Shannon, MGR-NURSING 04/05/22 10:43:30 [facility] [place] Endo - Time Out Audit 04/05/22 10:43:30 Hazardous Materials Waste Technician: [id number] Modifier: [id number] 1 <*> Procedure to be Performed Colonoscopy 04/05/22 10:36:09 Hazardous Materials Waste Technician: [id number] Modifier: [id number] 1 <+> Beta Nas Administered 1 <*> [...] patient position Case Comments <None> Finalized By: [place], Mary Kay, RN Document Signatures Signed By: Mara Shannon, MGR-NURSING 04/05/22 10:54 Mary Kay Pizano, MARIAJOSE 04/05/22 15:42 Unfinalized History Date/Time Username Reason for Unfinalizing Freetext Reason for Unfinalizing 04/05/22 15:42 [id number] Finish Documentation Electronically signed by [facility], [facility] Conversion Senior Software Test Engineer Cerner at 03/06/2023 7:36 PM CDT documented in this encounter Plan of Treatment Not on file documented as of this encounter Visit Diagnoses Not on filedocumented in this encounter Care Teams Machine Fur Cleaner Relationship Specialty Start Date End Date Hammad Tiwari MD [address] [place] [address] PCP - General Adolescent Medicine 03/15/23 documented as of this encounter
--- OUTSIDE RECORDS SUMMARY | 2025-07-09 08:04 | XMS_ITS | Encounter Summary ---
Author Organization [facility] ([place], [place], [place]) Address [address] [place] [address] Care Team Providers Care Target Worker Name Role Phone Hammad Tiwari MD Primary Care Provider [phone] Encounter Details Date Type Department Care Team (Late st Contact Info) Description 04/05/2022 Transcribed Document [facility] [place] Family Medicine [address] [place] [address] ProviderMichelle MD [address] [place] [address] Social History Tobacco Use Types [...] Source : Stated Height Entry Format : [place] Height, Feet : 5 ft(Converted to: 152 cm, 60 Inch) Height, Inches : 1 Inch(Converted to: 0 ft 1 Inch, 2.54 cm) Clinical Height : 154.94 cm Weight Source, ED : Standing scale Weight Entry Format : [place] Weight, Pounds : 191 lb Clinical Dosing Weight : 86.82 kg Body Surface Area (BSA) : 1.85 m2 Body Mass Index : 36.2 kg/m2 (HI) [place] Body Weight (IBW) : 47.45 kg Rosa Maria Beckett Rn - 04/05/2022 10:09 EDT Electronically signed by Leni [facility] Conversion Mirror Silverer Cerner at 03/06/2023 7:31 PM CDT documented in this encounter Plan of Treatment Not on file documented as of this encounter Visit Diagnoses Not on filedocumented in this encounter Care Teams Target Worker Relationship Specialty Start Date End Date Hammad Tiwari MD [address] [place] [address] PCP - General Adolescent Medicine 03/15/23 documented as of this encounter
--- OUTSIDE RECORDS SUMMARY | 2025-07-09 08:04 | XMS_ITS | Encounter Summary ---
Author Organization [facility] Address [address] [place] [id number] Care Team Providers Care Coordinate Measuring Machine Operator Name Role Phone Mitra Sargent APRN Primary Care Provid er Encounter Details Date Type Department Care Team (Late Contact Info) Description 03/19/2025 Results Follow-Up [facility] RHEUMATOLOGY [address] [address] Cecily Hanson APRN [address] [id number] Social History Tobacco Use Types Packs/Day Years [...] PM EDT Office Visit [facility] RHEUM[facility]Y [address] [address] Cecily Hanson APRN [address] [id number] 11/18/2025 1:30 PM EST Office Visit [facility] RHEUM[facility]OLOGY 330 [facility] [address] [place] [address] David Zarate MD 330 [facility] [address] [place] [address] documented as of this encounter Goals Goal [...] on filedocumented in this encounter Care Teams Coordinate Measuring Machine Operator Relationship Specialty Start Date End Date Mitra Sargent APRN [address] [place] [facility] [address] [place] [address] PCP - General Family Medicine 06/18/24 documented as of this encounter
--- OUTSIDE RECORDS SUMMARY | 2025-07-09 08:04 | XMS_ITS ---
Author Organization [facility] Address [address] [place] [address] Care Team Providers Care Unhairer Name Role Phone Mitra Sargent APRN Primary Care Provid er Rheumatology Status:Enrolled (Active) Start date:06/18/2024 Enrollment date:06/27/2024 Enrollment reason:New start at Current support & services provided:Clinical Assessment, Refill Coordination , Benefits Investigation, [facility] Disp[facility] Linked medications:Ustekinumab (Active) Linked problems:Psoriatic arthritis (Active) Continued Care and Services Coordination
--- OUTSIDE RECORDS SUMMARY | 2025-07-09 08:04 | XMS_ITS | Encounter Summary ---
Author Organization [employer] ([place], [place], [place], [place]) Address [address] [place] [address] Care Team Providers Care Machine Folder Name Role Phone Hammad Tiwari MD Primary Care Provider [phone] Encounter Details Date Type Department Care Team (Late st Contact Info) Description 04/05/2022 Transcribed Document [facility] [place] Family Medicine [address] [place] [address] ProviderMichelle MD [address] [place] [address] Social History Tobacco Use Types Packs/Day Years Used Date Smoking Tobacco: Never Assessed Family and Community Support Answer Billy e Recorded Help with Day to Day Activities Not on file 12/09/2023 Feeling Lonely or Isolated Not on file 12/09 Educational Attainment Answer Date Elton rded Speak language other than Swazi at home Not on file 12/09/2023 Want [...] 04/05/22 10:10:45 Pt. Name: CELE LIND Eduardo DavisB./Sex: 1960 Female Med Rec #: [id number] Physician: KEMAR FELDER MD-GAE Financial #: [id number] Pt. Type: E Room/Bed: [facility] Admit/Disch: 04/05/22 09:17:00 - Institution: [facility] [...] filedocumented in this encounter Care Teams Machine Folder Relationship Specialty Start Date End Date Hammad Tiwari MD [address] [place] [address] PCP - General Adolescent Medicine 03/15/23 documented as of this encounter
--- OUTSIDE RECORDS SUMMARY | 2025-07-09 08:04 | XMS_ITS | Encounter Summary ---
Author Organization [employer] ([place], [place], [place], [place]) Address [address] [place] [address] Care Team Providers Care Fashion Artist Name Role Phone Hammad Tiwari MD Primary Care Provider [phone] Reason for Visit * Reason Onset Date Comments Abnormal Lab 06/18/2025 Encounter Details Date Type Department Care Team (Late st Contact Info) Description 06/18/2025 Telephone [facility] Gastroenterology [address] [facility] [address] [place] [address] Asuncion Mathews, [facility] Abnormal Lab Social History Tobacco Use Types [...] Date Elton rded Speak language other than Senegalese at home Not on file 12/09/2023 Want [...] on filedocumented in this encounter Care Teams Fashion Artist Relationship Specialty Start Date End Date Hammad Tiwari MD [address] [place] [id number] PCP - General Adolescent Medicine 03/15/23 documented as of this encounter
--- OUTSIDE RECORDS SUMMARY | 2025-07-09 08:04 | XMS_ITS | Referral Summary ---
Author Organization [employer] ([place], [place], [place]) Address [address] [place] [address] Care Team Providers Care Laboratory Scientist Name Role Phone Hammad Tiwari MD Primary Care Provider [phone] Encounters Date Type Department Care Team Description 06/18/2025 Telephone [facility]astroenterology [address] [facility] [address] [place] [address] Asuncion Mathews, [employer] Abnormal Lab 04/10/2025 Orders Only [facility] Gastroenterology [address] [facility] [address] [place] [address] Provider, MD Michelle from Last 3 Months [...] the lumbar spine 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 [...] Date Elton rded Speak language other than Nepalese at home Not on file 12/09/2023 Want [...] 03/27/2025 1:33 PM EDT Plan of Treatment Not on file Procedures Procedure Name Priority Date/Time Associated Diagnosis Comments COLONOSCOPY Routine 04/05/2022 from Last 3 Months or Most Recently Relevant to Health Maintenance Results * COLONOSCOPY (04/05/2022) Frances Samson MD HEALTH MAINTENANCE Final Resul t from Last 3 Months or Most Recently Relevant to Health Maintenance Insurance MEDICARE [place] [address] [facility] SUPP Care Teams Laboratory Scientist Relationship Specialty Start Date End Date Hammad Tiwari MD [address] [place] [id number] PCP - General Adolescent Medicine 03/15/23
--- OUTSIDE RECORDS SUMMARY | 2025-07-09 08:04 | XMS_ITS | Encounter Summary ---
Author Organization [employer] ([place], [place], [place]) Address [address] [place] [address] Care Team Providers Care Front Office Specialist Name Role Phone Hammad Tiwari MD Primary Care Provider [phone] Encounter Details Date Type Department Care Team (Late st Contact Info) Description 04/05/2022 Transcribed Document [facility] [address] [place] [address] ProviderMichelle MD [address] [place] [address] Social History Tobacco Use Types [...] times a day. General instructions ??? Take vpoi-lfm-aibfnzi and prescription medicines only as told by [...] provider. Document Revised: 11/15/2019 Document Reviewed: 03/29/2019 [employer] Com Patient Education ? 2020 [employer]. Diverticulosis Diverticulosis is a condition that develops [...] getting enough exercise. ??? Smoking. ??? Taking tjts-rlo-ltqkhae pain medicines, like aspirin and ibuprofen. ??? [...] these instructions at home: Medicines ??? Take ylei-ogv-giiqtiv and prescription medicines only as told by your health care provider. ??? If told by your health care provider, take a fiber supplement or probiotic. Constipation prevention Your condition may cause constipation. To prevent or treat constipation, you may need to: ??? Drink enough fluid to keep your urine pale yellow. ??? Take frck-xzr-uejarov or prescription medicines. ??? Eat foods that [...] provider. Document Revised: 06/05/2020 Document Reviewed: 06/05/2020 [employer] Patient Education ? 2020 [employer]. Oncology Colon Polyps Colon polyps are tissue [...] liquor (44 mL). General instructions ??? Take jsvn-wzk-gwhrqim and prescription medicines only as told by [...] provider. Document Revised: 02/25/2021 Document Reviewed: 02/25/2021 GCI Com Patient Education ? 2020 [employer] Inc. Pharmacology Monitored Anesthesia Care, Care After [...] you are awake and alert. ??? Take htyg-ltu-hczqwlr and prescription medicines only as told by [...] provider. Document Revised: 07/23/2021 Document Reviewed: 10/09/2020 [employer] Patient Education ? 2020 [employer]. Radiology Colonoscopy, Adult, Care After This [...] soft and easy to digest. ??? Take nupq-gbv-wokxmbn or prescription medicines only as told by [...] provider. Document Revised: 09/12/2020 Document Reviewed: 06/02/2020 GCI Com Patient Education ? 2020 [employer]. documented in this encounter Plan of Treatment Not on file documented as of this encounter Visit Diagnoses Not on filedocumented in this encounter Care Teams Front Office Specialist Relationship Specialty Start Date End Date Hammad Tiwari MD [address] [place] [id number] PCP - General Adolescent Medicine 03/15/23 documented as of this encounter
--- OUTSIDE RECORDS SUMMARY | 2025-07-09 08:04 | XMS_ITS | Encounter Summary ---
Author Organization [facility] Address [address] [place] [id number] Care Team Providers Care Toll Mechanic Name Role Phone Mitra Sargent APRN Primary Care Provid er Encounter Details Date Type Department Care Team (Late Contact Info) Description 06/17/2025 Results Follow-Up [facility] RHEUMATOLOGY [address] [address] Cecily Hanson APRN [address] [phone] Social History Tobacco Use Types Packs/Day Years [...] Visit [facility] RHEUMATOLOGY [address] [address] Cecily Hanson APRN [address] [id number] 11/18/2025 1:30 PM EST Office Visit [facility] RHEUMATOLOGY [address] [facility] [address] [place] [address] David Zarate MD 330 [facility] 100 [place] [address] documented as of this encounter Goals Goal [...] on filedocumented in this encounter Care Teams Toll Mechanic Relationship Specialty Start Date End Date Mitra Sargent APRN [address] [facility] [address] [place] [address] PCP - General Family Medicine 06/18/24 documented as of this encounter
--- OUTSIDE RECORDS SUMMARY | 2025-07-09 08:04 | XMS_ITS | Clinical Summary ---
Author Organization [employer] ([place], [place], [place], [place]) Address [address] [place] [address] Care Team Providers Care Dull Coat Mill Operator Name Role Phone Hammad Tiwari MD Primary Care Provider [phone] Allergies Active Allergy Reactions Criticality Noted Date [...] the lumbar spine This is the biggest ups driver of her pain right now. Her [...] Type Department Care Team Description 06/18/2025 Telephone [facility] Gastroenterology [address] [facility] [address] [place] [address] Asuncion Mathews, TESTER OPERATOR Abnormal Lab 04/10/2025 Orders Only [facility]ology [address] [facility] [address] [place] [address] Provider, MD Michelle from Last 3 Months [...] Date Elton rded Speak language other than Syrian at home Not on file 12/09/2023 Want [...] 03/27/2025 1:33 PM EDT Plan of Treatment Health Maintenance Due Date Last Done Comments [...] AWV G0438 03/22/2024 COVID-19 VACCINE (7 - 2024-2 5 season) 2024 08/18/2022, 08/18/2022, 09/19/2021, Additional [...] Health Maintenance Insurance MEDICARE PART [place] [place] [address] Care Teams Dull Coat Mill Operator Relationship Specialty Start Date End Date Hammad Tiwari MD [address] [place] [id number] PCP - General Adolescent Medicine 03/15/23
--- OUTSIDE RECORDS SUMMARY | 2025-07-09 08:04 | XMS_ITS | Encounter Summary ---
Author Organization [facility] Address [address] [place] [phone] Care Team Providers Care Second Officer Name Role Phone Mitra Sargent APRN Primary Care Provid er Encounter Details Date Type Department Care Team (Late Contact Info) Description 06/11/2025 Results Follow-Up [facility] RHEUMATOLOGY [address] [address] Cecily Hanson APRN [address] [phone] Social History Tobacco Use Types Packs/Day Years [...] PM EDT Office Visit [facility] RHEUM[facility] [address] [address] Cecily Hanson APRN [address] [phone] 11/18/2025 1:30 PM EST Office Visit [facility] RHEUM[facility]Y [address] [facility] [address] [place] [address] David Zarate MD 330 [facility] [address] [place] [address] documented as of this encounter Goals Goal [...] on filedocumented in this encounter Care Teams Second Officer Relationship Specialty Start Date End Date Mitra Sargent APRN [address] [facility] [address] [place] [address] PCP - General Family Medicine 06/18/24 documented as of this encounter
--- OUTSIDE RECORDS SUMMARY | 2025-07-09 08:04 | XMS_ITS | Encounter Summary ---
Author Organization [employer] ([place], [place], [place], [place]) Address [address] [place] [address] Care Team Providers Care Manager Process Improvement Name Role Phone Hammad Tiwari MD Primary Care Provider [phone] Encounter Details Date Type Department Care Team (Late st Contact Info) Description 04/05/2022 Transcribed Document [facility] [place] [address] [place] [address] ProviderMichelle MD [address] [place] [address] Social History Tobacco Use Types Packs/Day Years Used Date Smoking Tobacco: Never Assessed Family and Community Support Answer Billy e Recorded Help with Day to Day Activities Not on file 12/09/2023 Feeling Lonely or Isolated Not on file 12/09 Educational Attainment Answer Date Elton rded Speak language other than Eritrean at home Not on file 12/09/2023 Want [...] Historical ProviderMD - 04/05/2022 11:03 AM CDT [address], [place] [id number] CELE LIND :1960 Visit Time:04/05/2022 What to [...] with pathology results in 7-10 days. Where: [address] [place] [address] [address] [place] [id number]- Medications What How Much When Instructions Next [...] you are awake and alert. ??? Take sawb-kxz-vetyfci and prescription medicines only as told by [...] Reviewed: 10/09/2020 Elsevier Patient Education ?? 2020 [employer]. Hemorrhoids Hemorrhoids are swollen veins that [...] times a day. General instructions ??? Take xbnm-yqo-fuhzukg and prescription medicines only as told by [...] provider. Document Revised: 11/15/2019 Document Reviewed: 03/29/2019 [employer] Patient Education ?? 2020 [employer]. Diverticulosis Diverticulosis is a condition that develops [...] getting enough exercise. ??? Smoking. ??? Taking ywln-xxq-fbrkgjd pain medicines, like aspirin and ibuprofen. ??? [...] these instructions at home: Medicines ??? Take wtvz-ssp-xssyqpb and prescription medicines only as told by your health care provider. ??? If told by your health care provider, take a fiber supplement or probiotic. Constipation prevention Your condition may cause constipation. To prevent or treat constipation, you may need to: ??? Drink enough fluid to keep your urine pale yellow. ??? Take cbrb-ubp-rrxtmsu or prescription medicines. ??? Eat foods that [...] provider. Document Revised: 06/05/2020 Document Reviewed: 06/05/2020 [employer] Patient Education ?? 2020 [employer]. Colonoscopy, Adult, Care After This sheet gives [...] soft and easy to digest. ??? Take tuuc-nnb-uybrrjg or prescription medicines only as told by [...] provider. Document Revised: 09/12/2020 Document Reviewed: 06/02/2020 [employer] Patient Education ?? 2020 [employer]. Colon Polyps Colon polyps are tissue growths [...] liquor (44 mL). General instructions ??? Take kamm-lvq-udzozax and prescription medicines only as told by [...] provider. Document Revised: 02/25/2021 Document Reviewed: 02/25/2021 [employer] Patient Education ?? 2020 [employer]. Emergency Awareness and Preventative Care STROKE [...] Assistance with quitting is available by contacting 9-981-MKOPNOW. This is a free resource providing counseling, support, and referral. Or you may contact your personal physician. [facility] Suicide Prevention Lifeline: The National Suicide Prevention [...] was given the opportunity to ask questions. Patient/Tamping Machine Operator Road Forms Name: Patient/Tamping Machine Operator Road Forms Signature: Relationship to Patient: Clinician/Hospital Tamping Machine Operator Road Forms Signature: Date: documented in this encounter Plan of Treatment Not on file documented as of this encounter Visit Diagnoses Not on filedocumented in this encounter Care Teams Manager Process Improvement Relationship Specialty Start Date End Date Hammad Tiwari MD [address] [place] [id number] PCP - General Adolescent Medicine 03/15/23 documented as of this encounter
--- OUTSIDE RECORDS SUMMARY | 2025-07-09 08:04 | XMS_ITS | Encounter Summary ---
Author Organization [facility] Address [address] [place] [phone] Care Team Providers Care Loom Stop Checker Name Role Phone Mitra Sargent APRN Primary Care Provid er Encounter Details Date Type Department Care Team (Late Contact Info) Description 06/11/2025 Results Follow-Up [facility] RHEUMATOLOGY [address] [address] Cecily Hanson APRN [address] [phone] Social History Tobacco Use Types Packs/Day Years [...] Description 08/20/2025 2:00 PM EDT Office Visit [facility] RHEUMATOLOGY [address] [address] Cecily Hanson APRN [address] [phone] 11/18/2025 1:30 PM EST Office Visit [facility] RHEUMATOLOGY 330 [facility] 100 [place] [address] David Zarate MD 330 [facility] 100 [place] [address] documented as of this encounter Goals Goal [...] on filedocumented in this encounter Care Teams Loom Stop Checker Relationship Specialty Start Date End Date Mitra Sargent APRN [address] [place] [facility] [address] [place] [address] PCP - General Family Medicine 06/18/24 documented as of this encounter
--- OUTSIDE RECORDS SUMMARY | 2025-07-09 08:04 | XMS_ITS | Encounter Summary ---
Author Organization [facility] Address [address] [place] [phone] Care Team Providers Care Installation Specialist Name Role Phone Mitra Sargent APRN Primary Care Provid er Encounter Details Date Type Department Care Team (Late Contact Info) Description 06/17/2025 Results Follow-Up [facility] RHEUMATOLOGY [address] [address] Cecily Hanson APRN [address] [phone] Social History Tobacco Use Types Packs/Day Years [...] 08/20/2025 2:00 PM EDT Office Visit [facility] RHEUMATOLOGY [address] [address] Cecily Hanson APRN [address] [phone] 11/18/2025 1:30 PM EST Office Visit [facility] RHEUMATOLOGY 330 [facility] [address] [place] [address] David Zarate MD 330 [facility] 100 [place] [address] documented as of this encounter Goals Goal [...] on filedocumented in this encounter Care Teams Installation Specialist Relationship Specialty Start Date End Date Mitra Sargent APRN [address] [facility] [address] [place] [address] PCP - General Family Medicine 06/18/24 documented as of this encounter
[2025-07-09 08:27] LABS: Hematocrit 41.0 % (37.0-47.0); Hemoglobin 13.7 g/dL (12.2-16.2); Immature Granulocytes % 0.1 %; Mean Corpuscular HGB Conc 33.4 g/dL (31.8-35.4); Mean Corpuscular Hemoglobin 31.1 pg (27.0-31.2); Mean Corpuscular Volume 93.0 fl (81-99); Nucleated Red Blood Cells % 0 %; Platelet Count 282 K/mm3 (142-424); Red Blood Count 4.41 M/mm3 (4.20-5.40); Red Cell Distribution Width-SD 44.3 fL; White Blood Count 7.1 K/mm3 (4.8-10.8)
[2025-07-09 08:52] LABS: Alanine Aminotransferase 14 U/L (12-78); Albumin Level 4.0 g/dl (3.5-5.0); Albumin/Globulin Ratio 1.7 (1.1-1.8); Alkaline Phosphatase 55 U/L (38-126); Anion Gap 9.8 mEq/L (5-15); Aspartate Amino Transferase 26 U/L (14-36); Bilirubin,Total 0.9 mg/dl (0.2-1.3); Blood Urea Nitrogen 11 mg/dl (7-17); Calcium 9.0 mg/dl (8.4-10.2); Carbon Dioxide 29 mmol/L (22.0-30.0); Chloride 105 mmol/L (98-107); Creatinine,Serum 0.80 mg/dl (0.52-1.04); Estimated Glomerular Filt Rate 72 ml/min (>60); GFR (African American) 87 ML/MIN (>60); Globulin 2.4 g/dL (1.3-3.2); Glucose 85 mg/dl (74-100); Potassium 3.8 mmoL/L (3.5-5.1); Sodium 140 mmol/L (136-145); Total Protein,Serum 6.4 g/dl (6.3-8.2)
[2025-07-09 08:57] LABS: C-Reactive Protein 0.5 mg/L (0-4)
== END 2025-07-09 23:59 | disposition home or self-care (01) ==
LOC: LAB 08:01
PROVIDERS: PCP Nurse Practitioner Family; Visit Provider Nurse Practitioner Family
DX: L40.50 Arthropathic psoriasis, unspecified (principal); R17 Unspecified jaundice
CPT/HCPCS: 36415; 80053; 85025; 85651; 86140

== ENCOUNTER 2025-11-16 12:22 | Outpatient (CLI) | payer MEDICARE, BC, SELFPAY ==
--- OUTSIDE RECORDS SUMMARY | 2025-11-16 12:26 | XMS_ITS | Encounter Summary ---
[facility] Organization [facility] Address [address] [place] [address] Care Team Providers Care Medical Director Occupational Health Name Role Phone Mitra Sargent Radha TRACY Primary Care Provid er Encounter Details Date Type Department Care Team (Late Contact Info) Description 03/19/2025 Results Follow-Up [facility] RHEUMATOLOGY [address] [address] Cecily Hanson APRN [address] [place] [phone] Social History Tobacco Use Types Packs/Day Years [...] Care Team (Late st Contact Info) Description 11/18/2025 1:30 PM EST Office Visit [facility] RHEUMATOLOGY [address] [address] David Zarate MD [address] [address] documented as of this encounter Goals Goal Patient Goal Type Associated Problems Recent Progress Patient-Stated? Author Specialty Pharmacy General Goal General On track( 025 12:51 PM EDT) Fritz Douglass, AdrianaD Note: Reduce number of flares and pain score. 2.20.25: Patient has had great reduction of pain in joints as well as remission of crohns 8.7.25: Patient reports similar relief as assessment from December documented as of this encounter Visit Diagnoses Not on filedocumented in this encounter Care Teams Medical Director Occupational Health Relationship Specialty Start Date End Date Mitra Sargent APRN [address] [facility] [address] [facility] [address] PCP - General Family Medicine 06/18/24 documented as of this encounter
--- OUTSIDE RECORDS SUMMARY | 2025-11-16 12:26 | XMS_ITS | Encounter Summary ---
Author Organization [facility] Address [address] [place] [address] Care Team Providers Care Microwave Engineer Name Role Phone Mitra Sargent APRN Primary Care Provid er Encounter Details Date Type Department Care Team (Late st Contact Info) Description 10/24/2025 Telephone [facility] RHEUMATOLOGY 330 [facility] 100 [place] [address] Cecily Hanson APRN 330 [facility] [address] [place] [address] Social History Tobacco Use Types Packs/Day [...] Telephone Encounter - Yudi Tello MA - 10/24/2025 2:26 PM EST Called and spoke with patient and informed her that she could print the results from her chart or she can sign a release of information form. 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 * Telephone Encounter - Kameron Samuels RegSched Rep - 10/24/2025 1:01 PM EST PT NEEDS [employer] TB LAB RESULTS FAXED TO [employer] [place] FAX: [phone] documented in this encounter Plan of Treatment Upcoming Encounters Date Type Department Care Team (Late st Contact Info) Description 11/18/2025 1:30 PM EST Office Visit [facility] RHEUMATOLOGY 330 [facility] 100 [place] [address] David Zarate MD 330 [facility] [address] [place], [place] [phone] documented as of this encounter Goals Goal Patient Goal Type Associated Problems Recent Progress Patient-Stated? Author Specialty Pharmacy General Goal General On track( 025 12:51 PM EDT) No Fritz Pack, AdrianaD Note: Reduce number of flares and pain score. 2.20.25: Patient has had great reduction of pain in joints as well as remission of crohns 8.7.25: Patient reports similar relief as assessment from December documented as of this encounter Visit Diagnoses Not on filedocumented in this encounter Care Teams Microwave Engineer Relationship Specialty Start Date End Date Mitra Sargent APRN 1210 [facility] [address] [place] [address] PCP - General Family Medicine 06/18/24 documented as of this encounter
--- OUTSIDE RECORDS SUMMARY | 2025-11-16 12:27 | XMS_ITS ---
Author Organization [facility] Address [address] [place] [address] Care Team Providers Care Incident Response Lead Name Role Phone Mitra Sargent APRN Primary Care Provid er Rheumatology Status:Enrolled (Active) Start date:06/18/2024 Enrollment date:06/27/2024 Enrollment reason:New start at Current support & services provided:Clinical Assessment, Refill Coordination , Benefits Investigation, [facility] Disp[facility] Linked medications:Ustekinumab (Active) Linked problems:Psoriatic arthritis (Active) Continued Care and Services Coordination
--- OUTSIDE RECORDS SUMMARY | 2025-11-16 12:27 | XMS_ITS | Referral Summary ---
Author Organization [employer] ([place], [place], [place], [place], [place]) Address [address] [place] [address] Care Team Providers Care Certified Ski Patroller Name Role Phone Hammad Tiwari MD Primary Care Provider [phone] Encounters Date Type Department Care Team Description 09/05/2025 Travel 09/05/2025 1:00 PM EDT Office Visit [facility] Gastroenterology [address] [facility] [address] [place] [address] Melvin Esparza MD Crohn's disease (HCC) (Primary Dx) from Last 3 Months Allergies Active Allergy [...] daily for 360 days. 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 Her [...] No other signs of IA currently. Immunizations Immunization Administration Dates Next Due Covid 19 Vaccine, [...] Date Elton rded Speak language other than Finnish at home Not on file 12/09/2023 Want [...] Sign Reading Time Taken Comments Blood Pressure 112/78 09/05/2025 1:21 PM EDT Pulse 72 09/05/2025 1:21 PM EDT Temperature 36.6 C (97.8 F) 09/05/2025 1:21 PM EDT Respiratory Rate 16 09/05/2025 1:21 PM EDT Oxygen Saturation 97% 09/05/2025 1:21 PM EDT Inhaled Oxygen Concentration - - Weight 68.5 kg (151 lb) 09/05/2025 1:21 PM EDT Height 154.9 cm (5' 1 ) 09/05/2025 1:21 PM EDT Body Mass Index 28.53 09/05/2025 1:21 PM EDT Plan of Treatment Not on file Procedures Procedure Name Priority Date/Time Associated Diagnosis Comments COLONOSCOPY Routine 04/05/2022 from Last 3 Months or Most Recently Relevant to Health Maintenance Results * COLONOSCOPY (04/05/2022) Frances Samson MD HEALTH MAINTENANCE Final Resul t from Last 3 Months or Most Recently Relevant to Health Maintenance Insurance MEDICARE PART A B [facility] SUPP Care Teams Certified Ski Patroller Relationship Specialty Start Date End Date Hammad Tiwari MD [address] [place] [id number] PCP - General Adolescent Medicine 03/15/23
--- OUTSIDE RECORDS SUMMARY | 2025-11-16 12:27 | XMS_ITS | Encounter Summary ---
[facility] Organization [facility] Address [address] [place] [address] Care Team Providers Care Busser Name Role Phone Mitra Sargent Radha TRACY Primary Care Provid er Encounter Details Date Type Department Care Team (Late Contact Info) Description 06/11/2025 Results Follow-Up [facility] RHEUMATOLOGY [address] [address] Cecily Hanson APRN 330 [place] [phone] Social History Tobacco Use Types Packs/Day Years [...] Description 11/18/2025 1:30 PM EST Office Visit [facility] RHEUMATOLOGY [address] [address] David Zarate MD [address] [address] documented as of this encounter Goals Goal [...] on filedocumented in this encounter Care Teams Busser Relationship Specialty Start Date End Date Mitra Sargent APRN [address] [facility] [address] [facility] [address] PCP - General Family Medicine 06/18/24 documented as of this encounter
--- OUTSIDE RECORDS SUMMARY | 2025-11-16 12:27 | XMS_ITS | Encounter Summary ---
[facility] Address [address] [place] [address] Care Team Providers Care Dry Ice Machine Operator Name Role Phone Mitra Sargent Radha TRACY Primary Care Provid er Encounter Details Date Type Department Care Team (Late Contact Info) Description 06/17/2025 Results Follow-Up [facility] RHEUMATOLOGY [address] [phone] Cecily Hanson APRN [address] [place] [phone] Social History Tobacco Use Types Packs/Day Years [...] Description 11/18/2025 1:30 PM EST Office Visit [facility] RHEUMATOLOGY [address] [phone] Davdi Zarate MD [address] [address] documented as of this encounter Goals Goal [...] on filedocumented in this encounter Care Teams Dry Ice Machine Operator Relationship Specialty Start Date End Date Mitra Sargent APRN [address] [facility] [address] [facility] [id number] PCP - General Family Medicine 06/18/24 documented as of this encounter
--- OUTSIDE RECORDS SUMMARY | 2025-11-16 12:27 | XMS_ITS | Clinical Summary ---
Author Organization [facility] ([place], [place], [place], [place], [place]) Address [address] [place] [address] Care Team Providers Care Phytopathology Teacher Name Role Phone Hammad Tiwari MD Primary Care Provider [phone] Allergies Active Allergy Reactions Criticality Noted Date [...] the lumbar spine This is the biggest certified driver examiner of her pain right now. Her pain [...] Date Type Department Care Team Description 09/05/2025 1:00 PM EDT Office Visit [facility] Gastroenterology [address] [facility] [address] [place] [phone] Melvin Esparza MD Crohn's disease (HCC) (Primary Dx) 09/05/2025 Travel from Last 3 Months Immunizations Immunization Administration Dates Next Due Covid [...] Date Elton rded Speak language other than Azeri at home Not on file 12/09/2023 Want [...] 09/05/2025 1:21 PM EDT Plan of Treatment Health Maintenance [...] series) 2018 Medicare Initial AWV [id number] 03/22/2024 Falls Risk Screening 11/21/2024 COVID-19 VACCINE (7 2024-2 6 season) 2025 08/18/2022, 08/18/2022, 09/19/2021, Additional history exists Influenza Vaccine (#1) 2025 08/21/2021, 2016 Tobacco Cessation Counseling and Screening (12+) 09/05/2026 09/05/2025 Colonoscopy 06/26/2034 06/26/2024, 04/05/2022 Colorectal Cancer Screening 06/26/2034 Procedures Procedure Name Priority Date/Time Associated Diagnosis Comments HM COLONOSCOPY Routine 04/05/2022 from Last 3 Months or Most Recently Relevant to Health Maintenance Results * HM COLONOSCOPY (04/05/2022) us Frances Samson MD HEALTH MAINTENANCE Final Resul t from Last 3 Months or Most Recently Relevant to Health Maintenance Insurance MEDICARE PART A B Care Teams Phytopathology Teacher Relationship Specialty Start Date End Date Hammad Tiwari MD [address] [place] [id number] PCP - General Adolescent Medicine 03/15/23
--- OUTSIDE RECORDS SUMMARY | 2025-11-16 12:27 | XMS_ITS | Encounter Summary ---
[facility] Address [address] [place] [address] Care Team Providers Care Loader Operator Name Role Phone Mitra Sargent Radha TRACY Primary Care Provid er Encounter Details Date Type Department Care Team (Late Contact Info) Description 06/17/2025 Results Follow-Up [facility] RHEUMATOLOGY [address] [phone] Cecily Hanson APRN [address] [place] [phone] Social History Tobacco Use Types Packs/Day Years [...] Description 11/18/2025 1:30 PM EST Office Visit [facility] RHEUMATOLOGY [address] [phone] David Zarate MD [address] [address] documented as of this encounter Goals Goal [...] on filedocumented in this encounter Care Teams Loader Operator Relationship Specialty Start Date End Date Mitra Sargent APRN [address] [place] [facility] [address] [facility] [address] PCP - General Family Medicine 06/18/24 documented as of this encounter
--- OUTSIDE RECORDS SUMMARY | 2025-11-16 12:27 | XMS_ITS | Clinical Summary ---
[facility] Address [address] [place] [address] Care Team Providers Care Trim Installer Name Role Phone Rosetta Mitra Radha TRACY Primary Care Provid er Allergies Active Allergy [...] oral route every day 90 tablet 3 4 Active Linzess 145 MCG capsule capsule Take [...] Every 8 (Eight) Weeks. 1 mL 3 10/10/2025 11:20 AM EST 5 Active linaclotide (Linzess) 145 MCG capsule capsule Take 1 capsule by mouth Daily. 90 capsule 3 07/16/2025 10:58 AM EDT 5 Active Active Problems Problem Noted Date [...] for PsA. She walked a lot at [employer] last month. She has occasional pain. XR [...] the lumbar spine This is the biggest road driver of her pain right now. Her [...] the lumbar spine This is the biggest road driver of her pain right now. Her [...] the lumbar spine This is the biggest road driver of her pain right now. Her [...] Assessment & Plan (06/15/2024 3:54 PM EDT): Stelara No infections in the interim. High risk [...] Encounters Date Type Department Care Team Description 11/07/2025 Telephone [facility] RHEUMATOLOGY [address] [place] [phone] David Zarate MD Med Management; LAB ORDERS 10/24/2025 Telephone [facility] RHEUMATOLOGY [address] [place] [phone] Cecily Hanson APRN from Last 3 [...] Description 11/18/2025 1:30 PM EST Office Visit [facility] RHEUMATOLOGY [address] [facility] [address] [place] [address] David Zarate MD [address] [facility] [address] [place] [address] Health Maintenance Due Date Last Done Comments TDAP/TD VACCINES (1 - Tdap) 1977 ZOSTER VACCINE (1 of 2) 1977 MAMMOGRAM 1998 COLOGUARD 2003 COLON CANCER SCREENING 5 YEA R SIGMOIDOSCOPY 2003 CT COLONOGRAPHY 2003 FECAL OCCULT BLOOD TEST 2003 FIT Testing (1 year) 2003 ANNUAL WELLNESS VISIT 04/02/2024 HEPATITIS C SCREENING 04/02/2024 INFLUENZA VACCINE 06/21/2025 07/27/2024, , 08/29/2021, Additional history exists COVID-19 Vaccine (8 - Mixed Product risk season) 2025 07/27/2024, 11/17/2023, 08/18/2022, Additional history exists DXA SCAN 06/17/2026 06/17/2024 COLONOSCOPY 06/26/2034 06/26/2024, 04/05/2022 COLORECTAL CANCER SCREENING 06/26/2034 Pneumococcal Vaccine 50+ Completed 06/12/2024 Goals Goal Patient Goal Type Associated Problems Recent Progress Patient-Stated? Author Specialty Pharmacy General Goal General On track( 025 12:51 PM EDT) Fritz Douglass, PharmD Note: Reduce number of flares and pain score. 2.20.25: Patient has had great reduction of pain in joints as well as remission of crohns 8.7.25: Patient reports similar relief as assessment from December Procedures Procedure Name Priority Date/Time Associated Diagnosis Comments SCANNED - DEXA Routine 06/17/2024 2:34 PM EDT from Last 3 Months or Most Recently Relevant to Health Maintenance Results * DEXA Scan (06/17/2024 2:34 PM EDT) Anatomical Region Laterality Modality Other us Historical Provider MD GERMAN CHART REVIEW TABS Steph l Result from Last 3 Months or Most Recently Relevant to Health Maintenance Insurance [facility] MEDICARE A & B Care Teams Trim Installer Relationship Specialty Start Date End Date Mitra Sargent APRN [address] [place] [address] [facility] [address] [place] [id number] PCP - General Family Medicine 06/18/24
--- OUTSIDE RECORDS SUMMARY | 2025-11-16 12:27 | XMS_ITS | Encounter Summary ---
[facility] Address [address] [place] [address] Care Team Providers Care Clay Washer Name Role Phone Mitra Sargent Radha TRACY Primary Care Provid er Encounter Details Date Type Department Care Team (Late Contact Info) Description 06/11/2025 Results Follow-Up [facility] RHEUMATOLOGY [address] [phone] Cecily Hanson APRN [address] [place] [phone] Social History Tobacco Use Types Packs/Day Years [...] Description 11/18/2025 1:30 PM EST Office Visit [facility] RHEUMATOLOGY [address] [phone] David Zarate MD [address] [address] documented as of this encounter Goals Goal [...] on filedocumented in this encounter Care Teams Clay Washer Relationship Specialty Start Date End Date Mitra Sargent APRN [address] [place] [facility] [address] [facility] [address] PCP - General Family Medicine 06/18/24 documented as of this encounter
--- OUTSIDE RECORDS SUMMARY | 2025-11-16 12:27 | XMS_ITS | Encounter Summary ---
[facility] [address] [place] [address] Care Team Providers Care Huc Ob Name Role Phone Mitra Sargent Radha TRACY Primary Care Provid er Reason for Visit * Reason Onset Date Comments Med Management 11/07/2025 LAB ORDERS 11/07/2025 Encounter Details Date Type Department Care Team (Late st Contact Info) Description 11/07/2025 Telephone [facility] RHEUMATOLOGY [address] [place] [phone] David Zarate MD [address] [place] [phone] Med Management; LAB ORDERS Social History Tobacco Use Types Packs/Day Years [...] encounter Miscellaneous Notes * Telephone Encounter - Ernestina Queen MA - 11/07/2025 3:55 PM EST Faxed lab orders to , [facility]. * Telephone Encounter - Orin Porter RegSched Rep - 11/07/2025 8:45 AM EST Caller: Cele Ramírez Relationship: Self Best call back number: [phone] What was the call regarding: [facility]ONE BEFORE APPT ON 11/18. PLEASE CONTACT AND ADVISE WHEN SENT. PATIENT ALSO WOULD LIKE TO BE SURE PA IS STARTED FOR STELARA SO SHE DOESN'T HAVE PROBLEMS WHEN RENEWAL COMES DUE. documented in this encounter Plan of Treatment Upcoming Encounters Date Type Department Care Team (Late st Contact Info) Description 11/18/2025 1:30 PM EST Office Visit [facility] RHEUMATOLOGY [address] [phone] David Zarate MD 330 [facility] [address] [place] [address] documented as of this encounter Goals Goal [...] on filedocumented in this encounter Care Teams Huc Ob Relationship Specialty Start Date End Date Mitra Sargent APRN [address] [place] [id number] PCP - General Family Medicine 06/18/24 documented as of this encounter
[2025-11-16 13:40] LABS: Albumin Level 4.3 g/dl (3.5-5.0); Chloride 104 mmol/L (98-107); Potassium 3.7 mmoL/L (3.5-5.1); Sodium 140 mmol/L (136-145)
[2025-11-16 13:43] LABS: Alanine Aminotransferase 14 U/L (12-78); Albumin/Globulin Ratio 1.7 (1.1-1.8); Alkaline Phosphatase 61 U/L (38-126); Anion Gap 11.7 mEq/L (5-15); Aspartate Amino Transferase 26 U/L (14-36); Bilirubin,Total 0.9 mg/dl (0.2-1.3); Blood Urea Nitrogen 11 mg/dl (7-17); Calcium 9.6 mg/dl (8.4-10.2); Carbon Dioxide 28 mmol/L (22.0-30.0); Creatinine,Serum 0.90 mg/dl (0.52-1.04); Estimated Glomerular Filt Rate 62 ml/min (>60); GFR (African American) 76 ML/MIN (>60); Globulin 2.6 g/dL (1.3-3.2); Glucose 89 mg/dl (74-100); Total Protein,Serum 6.9 g/dl (6.3-8.2)
[2025-11-16 13:48] LABS: C-Reactive Protein 1.0 mg/L (0-4)
== END 2025-11-16 23:59 | disposition home or self-care (01) ==
LOC: LAB 12:25
PROVIDERS: PCP Nurse Practitioner Family; Visit Provider Nurse Practitioner Family
DX: L40.50 Arthropathic psoriasis, unspecified (principal); D84.821 Immunodeficiency due to drugs; Z79.899 Other long term (current) drug therapy
CPT/HCPCS: 36415; 80053; 85651; 86140